=== PATIENT | male | born 1945 | race Caucasian/White ===

== ENCOUNTER → 2017-12-06 10:22 | Outpatient (CLI) | payer MEDICARE, SELFPAY ==
[2017-12-06 13:38] LABS: Absolute Lymphocyte Count 2.54 X10^3/ul (0.83-4.51); Absolute Neutrophil Count 2.6 X10^3/uL (2.0-7.7); Basophil# 0.02 X10^3/uL; Basophil% 0.3 % (0-1); Eosinophil# 0.07 X10^3/uL; Eosinophils% 1.2 % (0-5); Hematocrit 36.8 % (40-54); Hemoglobin 12.1 g/dl (13.0-16.5); Lymphocyte # 2.54 X10^3/ul (4.0); Lymphocyte % 43.4 % (19-41); Mean Corp Hgb Conc 32.9 g/gl (32-36); Mean Corpuscular Volume 91.3 fL (80-94); Mean Platelet Vol. 9.9 fl (6.2-12.0); Monocyte# 0.55 X10^3/uL; Monocyte% 9.4 % (0-10); Neutrophil # 2.64 X10^3/uL (2.7-7.7); Neutrophil % 45.2 % (47-70); Platelet Count 166 K/mm3 (150-450); RBC Distribution Width CV 14.4 % (11.6-14.6); RBC Distribution Width SD 47.4 fl (35.1-43.9); Red Blood Count 4.03 M/mm3 (4.6-6.2); White Blood Count 5.9 K/mm3 (4.4-11.0)
[2017-12-06 13:39] LABS: POSITIVE COUNT NO; POSITIVE DIFFERENTIAL NO; POSITIVE MORPHOLOGY NO
[2017-12-06 14:05] LABS: ALB/GLOB Ratio 1.1 RATIO (0.9-2.4); AST(SGOT) 17 U/L (15-37); Alanine Aminotransfer ALT/SGPT 33 U/L (16-61); Albumin, Serum 3.4 g/dL (3.2-5.0); Alkaline Phosphatase 53 U/L (45-117); Anion Gap 6 (5-15); BUN 26 mg/dL (7-18); BUN/Creat Ratio 22.8 RATIO (10-20); Calcium,Total 8.7 mg/dL (8.5-10.1); Chloride 102 mmol/L (98-107); Cholesterol 182 mg/dL (200); Creatinine, Serum 1.14 mg/dL (0.70-1.30); EST Glomerular Filtration Rate 67 mL/min (>60); Est Glom Filt Rate - Afr Amer 81 mL/min (>60); Glucose 247 mg/dL (74-106); High Density Lipoprotein 58 mg/dL; Potassium 4.7 mmol/L (3.5-5.1); Protein, Total 6.4 g/dL (6.4-8.2); Sodium Level 136 mmol/L (136-145); Thyroid Stim Hormone (TSH) 3.25 uIU/mL (0.358-3.74); Triglycerides 222 mg/dL; Very Low Density Lipoprotein 44 mg/dL (5-40)
== END ==
PROVIDERS: Family Provider Family Medicine Geriatric Medicine; PCP Family Medicine Geriatric Medicine; Visit Provider Family Medicine Geriatric Medicine
DX: I10 Essential (primary) hypertension (principal); F52.8 Other sexual dysfunction not due to a substance or known physiological condition; E11.9 Type 2 diabetes mellitus without complications; E78.4 Other hyperlipidemia
CPT/HCPCS: 36415; 80053; 80061; 84403; 84443; 85025

== ENCOUNTER → 2018-01-02 17:28 | Outpatient (CLI) | payer MEDICARE, SELFPAY | PROVIDERS: Family Provider Family Medicine Geriatric Medicine; PCP Family Medicine Geriatric Medicine; Visit Provider Family Medicine Geriatric Medicine | DX: R69 Illness, unspecified (principal) | CPT/HCPCS: 87633 ==

== ENCOUNTER → 2018-02-25 11:38 | Outpatient (CLI) | payer MEDICARE, SELFPAY ==
[2018-02-25 12:41] LABS: Absolute Lymphocyte Count 1.79 X10^3/ul (0.83-4.51); Basophil# 0.04 X10^3/uL; Basophil% 0.7 % (0-1); Eosinophil# 0.08 X10^3/uL; Eosinophils% 1.4 % (0-5); Hematocrit 34.2 % (40-54); Hemoglobin 11.5 g/dl (13.0-16.5); Lymphocyte # 1.79 X10^3/ul (4.0); Lymphocyte % 31.9 % (19-41); Mean Corp Hgb Conc 33.6 g/gl (32-36); Mean Corpuscular Hgb 31.1 pg (27.0-32.0); Mean Corpuscular Volume 92.4 fL (80-94); Mean Platelet Vol. 9.8 fl (6.2-12.0); Monocyte# 0.68 X10^3/uL; Monocyte% 12.1 % (0-10); Neutrophil # 3.01 X10^3/uL (2.7-7.7); Neutrophil % 53.5 % (47-70); POSITIVE COUNT NO; POSITIVE DIFFERENTIAL NO; POSITIVE MORPHOLOGY NO; Platelet Count 186 K/mm3 (150-450); RBC Distribution Width CV 14.1 % (11.6-14.6); RBC Distribution Width SD 46.1 fl (35.1-43.9); White Blood Count 5.6 K/mm3 (4.4-11.0)
[2018-02-25 12:50] LABS: Anion Gap 6 (5-15); BUN 23 mg/dL (7-18); BUN/Creat Ratio 20.2 RATIO (10-20); Calcium,Total 8.8 mg/dL (8.5-10.1); Chloride 104 mmol/L (98-107); Creatinine, Serum 1.14 mg/dL (0.70-1.30); EST Glomerular Filtration Rate 67 mL/min (>60); Est Glom Filt Rate - Afr Amer 81 mL/min (>60); Glucose 357 mg/dL (74-106); Potassium 4.8 mmol/L (3.5-5.1); Sodium Level 138 mmol/L (136-145)
== END ==
PROVIDERS: Family Provider Family Medicine Geriatric Medicine; PCP Family Medicine Geriatric Medicine; Visit Provider Family Medicine Geriatric Medicine
DX: M79.609 Pain in unspecified limb (principal)
CPT/HCPCS: 36415; 80048; 85025

== ENCOUNTER → 2018-03-01 08:48 | Outpatient (CLI) | payer MEDICARE, SELFPAY ==
[2018-03-01 09:48] LABS: Absolute Neutrophil Count 2.4 X10^3/uL (2.0-7.7); Basophil# 0.06 X10^3/uL; Basophil% 1.1 % (0-1); Eosinophil# 0.09 X10^3/uL; Eosinophils% 1.7 % (0-5); Hematocrit 33.4 % (40-54); Hemoglobin 11.4 g/dl (13.0-16.5); Lymphocyte % 41.6 % (19-41); Mean Corp Hgb Conc 34.1 g/gl (32-36); Mean Corpuscular Hgb 31.3 pg (27.0-32.0); Mean Corpuscular Volume 91.8 fL (80-94); Mean Platelet Vol. 9.4 fl (6.2-12.0); Monocyte# 0.55 X10^3/uL; Monocyte% 10.4 % (0-10); Neutrophil # 2.38 X10^3/uL (2.7-7.7); POSITIVE COUNT NO; POSITIVE DIFFERENTIAL NO; POSITIVE MORPHOLOGY NO; Platelet Count 196 K/mm3 (150-450); RBC Distribution Width CV 13.7 % (11.6-14.6); RBC Distribution Width SD 45.2 fl (35.1-43.9); Red Blood Count 3.64 M/mm3 (4.6-6.2); White Blood Count 5.3 K/mm3 (4.4-11.0)
[2018-03-01 10:21] LABS: AST(SGOT) 17 U/L (15-37); Alanine Aminotransfer ALT/SGPT 23 U/L (16-61); Albumin, Serum 3.4 g/dL (3.2-5.0); Alkaline Phosphatase 53 U/L (45-117); Anion Gap 7 (5-15); BUN 31 mg/dL (7-18); Calcium,Total 8.4 mg/dL (8.5-10.1); Chloride 104 mmol/L (98-107); Cholesterol 176 mg/dL (200); Creatinine, Serum 1.29 mg/dL (0.70-1.30); EST Glomerular Filtration Rate 58 mL/min (>60); Est Glom Filt Rate - Afr Amer 70 mL/min (>60); Globulin 3.3 g/dL (2.2-4.2); Glucose 196 mg/dL (74-106); High Density Lipoprotein 48 mg/dL; Potassium 4.2 mmol/L (3.5-5.1); Protein, Total 6.7 g/dL (6.4-8.2); Sodium Level 138 mmol/L (136-145); Thyroid Stim Hormone (TSH) 3.81 uIU/mL (0.358-3.74); Triglycerides 201 mg/dL; Very Low Density Lipoprotein 40 mg/dL (5-40)
[2018-03-01 10:52] LABS: Vitamin D,25 Hydroxy 16.4 ng/mL (29.95-100.01)
== END ==
PROVIDERS: Family Provider Family Medicine Geriatric Medicine; PCP Family Medicine Geriatric Medicine; Visit Provider Family Medicine Geriatric Medicine
DX: E55.9 Vitamin D deficiency, unspecified (principal); E11.9 Type 2 diabetes mellitus without complications; F52.8 Other sexual dysfunction not due to a substance or known physiological condition; E78.4 Other hyperlipidemia
CPT/HCPCS: 36415; 80053; 80061; 82306; 84403; 84443; 85025

== ENCOUNTER → 2018-06-07 09:55 | Outpatient (CLI) | payer MEDICARE, SELFPAY ==
[2018-06-07 11:42] LABS: Absolute Lymphocyte Count 1.72 X10^3/ul (0.83-4.51); Absolute Neutrophil Count 2.5 X10^3/uL (2.0-7.7); Basophil# 0.04 X10^3/uL; Basophil% 0.8 % (0-1); Eosinophil# 0.17 X10^3/uL; Eosinophils% 3.5 % (0-5); Hematocrit 32.9 % (40-54); Hemoglobin 10.6 g/dl (13.0-16.5); Lymphocyte # 1.72 X10^3/ul (4.0); Lymphocyte % 35.2 % (19-41); Mean Corp Hgb Conc 32.2 g/gl (32-36); Mean Corpuscular Hgb 28.6 pg (27.0-32.0); Mean Corpuscular Volume 88.7 fL (80-94); Monocyte% 10.2 % (0-10); Neutrophil # 2.45 X10^3/uL (2.7-7.7); Neutrophil % 50.3 % (47-70); Platelet Count 192 K/mm3 (150-450); RBC Distribution Width CV 13.8 % (11.6-14.6); Red Blood Count 3.71 M/mm3 (4.6-6.2); White Blood Count 4.9 K/mm3 (4.4-11.0)
[2018-06-07 11:44] LABS: POSITIVE COUNT NO; POSITIVE DIFFERENTIAL NO; POSITIVE MORPHOLOGY NO
[2018-06-07 12:00] LABS: Vitamin D,25 Hydroxy 26.9 ng/mL (29.95-100.01)
[2018-06-07 12:04] LABS: AST(SGOT) 19 U/L (15-37); Alanine Aminotransfer ALT/SGPT 24 U/L (16-61); Albumin, Serum 3.4 g/dL (3.2-5.0); Alkaline Phosphatase 55 U/L (45-117); Anion Gap 7 (5-15); BUN 28 mg/dL (7-18); BUN/Creat Ratio 19.9 RATIO (10-20); Calcium,Total 8.5 mg/dL (8.5-10.1); Chloride 107 mmol/L (98-107); Creatinine, Serum 1.41 mg/dL (0.70-1.30); EST Glomerular Filtration Rate 52 mL/min (>60); Est Glom Filt Rate - Afr Amer 63 mL/min (>60); Globulin 3.3 g/dL (2.2-4.2); Glucose 140 mg/dL (74-106); Protein, Total 6.7 g/dL (6.4-8.2); Sodium Level 142 mmol/L (136-145); Thyroid Stim Hormone (TSH) 2.41 uIU/mL (0.358-3.74)
[2018-06-07 14:42] LABS: M R Staph aureus DNA By PCR Negative (Negative); Probe Check PASS; Specimen Processing Control PASS; Staph aureus DNA By PCR NEGATIVE (Negative)
== END ==
PROVIDERS: Family Provider Family Medicine Geriatric Medicine; PCP Family Medicine Geriatric Medicine; Visit Provider Family Medicine Geriatric Medicine
DX: E11.9 Type 2 diabetes mellitus without complications (principal); I10 Essential (primary) hypertension; E55.9 Vitamin D deficiency, unspecified; F52.8 Other sexual dysfunction not due to a substance or known physiological condition
CPT/HCPCS: 36415; 80053; 82306; 84403; 84443; 85025; 87070; 87205; 87640

== ENCOUNTER → 2018-06-14 11:29 | Outpatient (CLI) | payer MEDICARE, SELFPAY ==
[2018-06-14 13:10] LABS: Anion Gap 6 (5-15); BUN 27 mg/dL (7-18); BUN/Creat Ratio 18.4 RATIO (10-20); Calcium,Total 8.8 mg/dL (8.5-10.1); Chloride 102 mmol/L (98-107); Creatinine, Serum 1.47 mg/dL (0.70-1.30); EST Glomerular Filtration Rate 50 mL/min (>60); Est Glom Filt Rate - Afr Amer 60 mL/min (>60); Glucose 276 mg/dL (74-106); Potassium 4.5 mmol/L (3.5-5.1); Sodium Level 138 mmol/L (136-145)
== END ==
PROVIDERS: Family Provider Family Medicine Geriatric Medicine; PCP Family Medicine Geriatric Medicine; Visit Provider Family Medicine Geriatric Medicine
DX: N39.0 Urinary tract infection, site not specified (principal); N18.3 Chronic kidney disease, stage 3 (moderate)
CPT/HCPCS: 36415; 80048; 87086

== ENCOUNTER → 2018-06-19 10:10 | Outpatient (CLI) | payer MEDICARE, SELFPAY | PROVIDERS: Family Provider Family Medicine Geriatric Medicine; PCP Family Medicine Geriatric Medicine; Visit Provider Urology | DX: R31.9 Hematuria, unspecified (principal); L97.912 Non-pressure chronic ulcer of unspecified part of right lower leg with fat layer exposed; R60.0 Localized edema; I25.10 Atherosclerotic heart disease of native coronary artery without angina pectoris; E11.9 Type 2 diabetes mellitus without complications; I10 Essential (primary) hypertension | CPT/HCPCS: 11042; 76770; 99203; G0463 ==

== ENCOUNTER 2018-06-19 11:31 | Outpatient (RCR) | payer MEDICARE, SELFPAY ==
[2018-06-19 11:55] VITALS: BP 129/63; PULSE 61; RESP 16; TEMP 36.9; BMI 25.7
--- NOTE | 2018-06-19 13:18 | PCM.WC.HP ---
(1) Bilateral lower extremity edema Status: Acute Current Visit: Yes Code(s): R60.0 - Localized edema (2) Ulcer of right lower extremity Status: Acute Current Visit: Yes Code(s): L97.919 - Non-pressure chronic ulcer of unspecified part of right lower leg with unspecified severity (3) CAD (coronary artery disease) Status: Chronic Current Visit: No Code(s): I25.10 - Atherosclerotic heart disease of [place] coronary artery without angina pectoris (4) Diabetes Status: Chronic Current Visit: No Code(s): E11.9 - Type 2 diabetes mellitus without complications History of Present Illness Date of Service: 06/19/18 Chief Complaint: Right Lower Extremity Ulcer. History of Wound: Mr. Clayton is a 72-year-old with past medical history as stated above who presented to the wound center due to right lower extremity ulcer. He reports worsening bilateral lower extremity swelling which was noted about a month ago subsequently about a week ago noted right lower extremity ulcer. Denies any history of trauma. He has tried some home care without any significant relief. Bilateral lower extremity swelling also appears to have persisted despite diuretic management. He feels well otherwise and denies chills, fever but does note shortness of breath he has an extensive cardiac history and status post stenting. Past Medical History Past Medical History: Chronic Problems Diabetes (Chronic) Hypertension (Chronic) CAD (coronary artery disease) (Chronic) Allergies/Adverse Reactions: Allergies ciprofloxacin HCl [From Cipro] Adverse Reaction (Verified 11/24/16 21:59) Pain in joints Home Medications: Ambulatory Orders Medication Instructions Recorded Levothyroxine [Synthroid] 25 mcg PO DAILY 09/09/13 Metoprolol Tartrate [Lopressor 25 mg PO BID 09/09/13 (beta gary)] Rosuvastatin Calcium [Crestor] 20 mg PO QHS 09/09/13 Tamsulosin HCl [Flomax] 0.4 mg PO DAILY 09/09/13 ALPRAZolam [Xanax] 0.25 mg PO QHS PRN 04/12/16 Ondansetron [Zofran Odt] 4 mg PO Q8H PRN PRN #10 tablet 04/12/16 Aspirin [Aspirin, Baby] 81 mg PO DAILY@0800 11/24/16 Clopidogrel Bisulfate [Plavix] 75 mg PO DAILY 11/24/16 Finasteride 1 mg PO DAILY 11/24/16 Insulin Degludec [Tresiba 100 unit SQ DAILY 11/24/16 Flextouch U-100] Pantoprazole Sodium [Protonix] 20 mg PO DAILY 11/24/16 Sennosides/Docusate Sodium 2 each PO QHS 11/24/16 [Docusate Sodium-Senna Tablet] - Family History Paternal Diabetes Maternal Heart Disease Smoking Status: Former smoker Review of Systems Constitutional: Denies: Anorexia, Chills, Fever, Malaise, Weakness HEENT: Denies: Difficulty Swallowing Cardiovascular: Denies: Chest Pain, Syncope Respiratory: Denies: Cough, Shortness of Breath, Wheezing Gastrointestinal: Denies: Abdominal Pain, Hematemesis, Vomiting Genitourinary: Denies: Hematuria - Physical Exam Vital Signs Temp Pulse Resp BP 98.4 F 61 16 129/63 H 06/19/18 11:55 06/19/18 11:55 06/19/18 11:55 06/19/18 11:55 General: Alert, Oriented x3, Cooperative, No apparent distress HEENT: Atraumatic Oral: Moist Mucosa Neck: Supple Lungs: Normal air movement Cardiovascular: Regular rate, Regular Rhythm Abdomen: Soft, Non Tender Extremities: No cyanosis, Edema Skin: Ulcer/ Wound Wound Measurements and Assessment WC - Nurse 1 - General Ulcer Measurement Start: 06/19/18 11:55 Freq: Status: Active Protocol: Activity Type Activity Date Activity User E-Sign Co-Sign Detail Recorded Client Recorded Date Recorded By Document 06/19/18 11:55 [id number] 06/19/18 12:16 06/19/18 11:55 Wound Center Nurse 1 [Ulcer Assessment] #1 RLE leg -Combined with other wound No -Current Size (cm) - Length 0.4 -Current Size (cm) - Width 0.4 -Current Size (cm) - Depth 0.1 -Total Square Cm 0.16 -Date of Last Picture (Recall this 06/19/18 field) -Photo Taken Yes -Epithelialization None Present -Tunneling No -Undermining/Tunneling No -Circular Undermining No -Exudate Amt Small (1-33%) -Exudate Type Serosanguineous -Wound Margin Distinct, Outline Attached -Granulation Amt Medium (34-66%) -Granulation Quality Red -Slough/Fibrin Yes -Necrosis Amt None Present (0 %) -Necrotic Tissue Type Adherent Slough -Structure Exposed None/Limited to Skin Breakdown -Texture (Bertha-wound Skin Appearance) No Abnormality Assessed -Moisture (Bertha-wound Skin Appearance No Abnormality ) Assessed -Color (Bertha-wound Skin Appearance) Assessed Hemosiderin Staining -Temperature (Bertha-wound Skin No Abnormality Appearance) (Pt Warm) -Tenderness on Palpation (Bertha-wound No Skin Appearance) -Ulcer Cleansing Rinsed/ Irrigated with Saline -Foul Odor after Cleansing No -Anesthetic Used 4% Lidocaine Solution [Edema Assessment] -Lower Limb Edema Present Yes -Right Calf (cm) 41 -Right Ankle (cm) 22 -Left Calf (cm) 40.5 -Left Ankle (cm) 20.0 WC - Nurse 2 - General Ulcer CM Notes Start: 06/19/18 11:55 Freq: Status: Active Protocol: Activity Type Activity Date Activity User E-Sign Co-Sign Detail Recorded Client Recorded Date Recorded By Document 06/19/18 12:24 MW [id number] 06/19/18 12:30 MW 06/19/18 12:24 Wound Center Nurse 2 [Procedure/Treatment] #1 RLE leg -Time 12:25 -Correct Patient Yes -Correct Side, Site, Position Yes -Correct Procedure Yes -Procedure Performed Yes -Type of Procedure Debridement -Clinical Debridement Subcutaneous -Post Debridement Size (cm) - Length 0.6 -Post Debridement Size (cm) - Width 0.6 -Post Debridement Size (cm) - Depth 0.1 -Total Square Cm 0.36 -Wound/Ulcer Outcome Not Healed -Ulcer Cleansing Rinsed/ Irrigated with Saline -Foul Odor after Cleansing No -Bioengineered Tissue No -Bleeding Controlled with Pressure -Treatment Response Procedure Tolerated Well [See Physician Procedure note for Specifics] Pain Scale: 0-10 Numeric [Pain] -Is Patient Pain Free? Yes Musculoskeletal: No Muscle Wasting Neurological: Cranial nerves II-XII grossly intact Psych/Mental Status: Normal Affect Debridement Note Post-Debridement Measurements/Treatment WC - Nurse 2 - General Ulcer CM Notes Start: 06/19/18 11:55 Freq: Status: Active Protocol: Activity Type Activity Date Activity User E-Sign Co-Sign Detail Recorded Client Recorded Date Recorded By Document 06/19/18 12:24 MW [id number] 08/29/18 12:30 MW 06/19/18 12:24 Wound Center Nurse 2 #1 RLE leg -Time 12:25 -Correct Patient Yes -Correct Side, Site, Position Yes -Correct Procedure Yes -Procedure Performed Yes -Type of Procedure Debridement -Clinical Debridement Subcutaneous -Post Debridement Size (cm) - Length 0.6 -Post Debridement Size (cm) - Width 0.6 -Post Debridement Size (cm) - Depth 0.1 -Total Square Cm 0.36 -Wound/Ulcer Outcome Not Healed -Ulcer Cleansing Rinsed/ Irrigated with Saline -Foul Odor after Cleansing No -Bioengineered Tissue No -Bleeding Controlled with Pressure -Treatment Response Procedure Tolerated Well Pain Scale: 0-10 Numeric Is Patient Pain Free? Yes Wound debrided: Right lower extremity ulcer Wound Grade/Stage: Saxena I Type of Debridement: Excisional debridement Anesthesia Used: 4% Lidocaine Solution Depth: Down to and including healthy tissue, in the subcutaneous layer Percentage of wound debrided: 100 Instrument Used: 3mm curette Tissue Removed: Slough and devitalized tissue Severity: Fat Layer Exposed Amount of bleeding with debridement: Mild Bleeding Controlled with: Pressure Patient tolerated procedure well Assessment/Plan Active Problems Bilateral lower extremity edema (Acute) Ulcer of right lower extremity (Acute) Assessment: Right lower extremity ulcer with fat layer exposed. Bilateral lower extremity swelling. Diabetes Mellitus. Possible PAD in a patient with CAD. Plan: Debridement done as documented above. Procedure was well-tolerated. Aquacel extra to open ulcers with Xeroform over area of erythema. Change daily. Single layer Tubigrip for now for edema management. Patient advised to elevate lower extremities when seated and in bed. Also advised him compliance with diuretic management. Strongly advised to follow-up with his account analyst due to his extensive cardiac history and he also reports some shortness of breath. Vascular and venous studies ordered. Will get other labs from the [facility]. Increase protein intake recommended. Optimal blood glucose control. Advised to follow-up with his PCP for continued management of his sugars. Follow-up in 1 week. He was advised to call with any questions or concerns. This note was generated with [employer] software. It may contain incorrect words, spelling, and punctuation that were not noted in checking the note before signing.
--- NOTE | 2018-06-19 13:21 | HP.PCM_ITS ---
(1) Bilateral lower extremity edema Status: Acute Current Visit: Yes Code(s): R60.0 - Localized edema (2) Ulcer of right lower extremity Status: Acute Current Visit: Yes Code(s): L97.919 - Non-pressure chronic ulcer of unspecified part of right lower leg with unspecified severity (3) CAD (coronary artery disease) Status: Chronic Current Visit: No Code(s): I25.10 - Atherosclerotic heart disease of [place] coronary artery without angina pectoris (4) Diabetes Status: Chronic Current Visit: No Code(s): E11.9 - Type 2 diabetes mellitus without complications History of Present Illness Date of Service: 06/19/18 Chief Complaint: Right Lower Extremity Ulcer. History of Wound: Mr. Clayton is a 72-year-old with past medical history as stated above who presented to the wound center due to right lower extremity ulcer. He reports worsening bilateral lower extremity swelling which was noted about a month ago subsequently about a week ago noted right lower extremity ulcer. Denies any history of trauma. He has tried some home care without any significant relief. Bilateral lower extremity swelling also appears to have persisted despite diuretic management. He feels well otherwise and denies chills, fever but does note shortness of breath he has an extensive cardiac history and status post stenting. Past Medical History Past Medical History: Chronic Problems Diabetes (Chronic) Hypertension (Chronic) CAD (coronary artery disease) (Chronic) Allergies/Adverse Reactions: Allergies ciprofloxacin HCl [From Cipro] Adverse Reaction (Verified 11/24/16 21:59) Pain in joints Home Medications: Ambulatory Orders Medication Instructions Recorded Levothyroxine [Synthroid] 25 mcg PO DAILY 09/09/13 Metoprolol Tartrate [Lopressor 25 mg PO BID 09/09/13 (beta gary)] Rosuvastatin Calcium [Crestor] 20 mg PO QHS 09/09/13 Tamsulosin HCl [Flomax] 0.4 mg PO DAILY 09/09/13 ALPRAZolam [Xanax] 0.25 mg PO QHS PRN 04/12/16 Ondansetron [Zofran Odt] 4 mg PO Q8H PRN PRN #10 tablet 04/12/16 Aspirin [Aspirin, Baby] 81 mg PO DAILY@0800 11/24/16 Clopidogrel Bisulfate [Plavix] 75 mg PO DAILY 11/24/16 Finasteride 1 mg PO DAILY 11/24/16 Insulin Degludec [Tresiba 100 unit SQ DAILY 11/24/16 Flextouch U-100] Pantoprazole Sodium [Protonix] 20 mg PO DAILY 11/24/16 Sennosides/Docusate Sodium 2 each PO QHS 11/24/16 [Docusate Sodium-Senna Tablet] - Family History Paternal Diabetes Maternal Heart Disease Smoking Status: Former smoker Review of Systems Constitutional: Denies: Anorexia, Chills, Fever, Malaise, Weakness HEENT: Denies: Difficulty Swallowing Cardiovascular: Denies: Chest Pain, Syncope Respiratory: Denies: Cough, Shortness of Breath, Wheezing Gastrointestinal: Denies: Abdominal Pain, Hematemesis, Vomiting Genitourinary: Denies: Hematuria - Physical Exam Vital Signs Temp Pulse Resp BP 98.4 F 61 16 129/63 H 06/19/18 11:55 06/19/18 11:55 06/19/18 11:55 06/19/18 11:55 General: Alert, Oriented x3, Cooperative, No apparent distress HEENT: Atraumatic Oral: Moist Mucosa Neck: Supple Lungs: Normal air movement Cardiovascular: Regular rate, Regular Rhythm Abdomen: Soft, Non Tender Extremities: No cyanosis, Edema Skin: Ulcer/ Wound Wound Measurements and Assessment WC - Nurse 1 - General Ulcer Measurement Start: 06/19/18 11:55 Freq: Status: Active Protocol: Activity Type Activity Date Activity User E-Sign Co-Sign Detail Recorded Client Recorded Date Recorded By Document 06/19/18 11:55 [id number] 06/19/18 12:16 06/19/18 11:55 Wound Center Nurse 1 [Ulcer Assessment] #1 RLE leg -Combined with other wound No -Current Size (cm) - Length 0.4 -Current Size (cm) - Width 0.4 -Current Size (cm) - Depth 0.1 -Total Square Cm 0.16 -Date of Last Picture (Recall this 06/19/18 field) -Photo Taken Yes -Epithelialization None Present -Tunneling No -Undermining/Tunneling No -Circular Undermining No -Exudate Amt Small (1-33%) -Exudate Type Serosanguineous -Wound Margin Distinct, Outline Attached -Granulation Amt Medium (34-66%) -Granulation Quality Red -Slough/Fibrin Yes -Necrosis Amt None Present (0 %) -Necrotic Tissue Type Adherent Slough -Structure Exposed None/Limited to Skin Breakdown -Texture (Bertha-wound Skin Appearance) No Abnormality Assessed -Moisture (Bertha-wound Skin Appearance No Abnormality ) Assessed -Color (Bertha-wound Skin Appearance) Assessed Hemosiderin Staining -Temperature (Bertha-wound Skin No Abnormality Appearance) (Pt Warm) -Tenderness on Palpation (Bertha-wound No Skin Appearance) -Ulcer Cleansing Rinsed/ Irrigated with Saline -Foul Odor after Cleansing No -Anesthetic Used 4% Lidocaine Solution [Edema Assessment] -Lower Limb Edema Present Yes -Right Calf (cm) 41 -Right Ankle (cm) 22 -Left Calf (cm) 40.5 -Left Ankle (cm) 20.0 WC - Nurse 2 - General Ulcer CM Notes Start: 06/19/18 11:55 Freq: Status: Active Protocol: Activity Type Activity Date Activity User E-Sign Co-Sign Detail Recorded Client Recorded Date Recorded By Document 06/19/18 12:24 MW [id number] 06/19/18 12:30 MW 06/19/18 12:24 Wound Center Nurse 2 [Procedure/Treatment] #1 RLE leg -Time 12:25 -Correct Patient Yes -Correct Side, Site, Position Yes -Correct Procedure Yes -Procedure Performed Yes -Type of Procedure Debridement -Clinical Debridement Subcutaneous -Post Debridement Size (cm) - Length 0.6 -Post Debridement Size (cm) - Width 0.6 -Post Debridement Size (cm) - Depth 0.1 -Total Square Cm 0.36 -Wound/Ulcer Outcome Not Healed -Ulcer Cleansing Rinsed/ Irrigated with Saline -Foul Odor after Cleansing No -Bioengineered Tissue No -Bleeding Controlled with Pressure -Treatment Response Procedure Tolerated Well [See Physician Procedure note for Specifics] Pain Scale: 0-10 Numeric [Pain] -Is Patient Pain Free? Yes Musculoskeletal: No Muscle Wasting Neurological: Cranial nerves II-XII grossly intact Psych/Mental Status: Normal Affect Debridement Note Post-Debridement Measurements/Treatment WC - Nurse 2 - General Ulcer CM Notes Start: 06/19/18 11:55 Freq: Status: Active Protocol: Activity Type Activity Date Activity User E-Sign Co-Sign Detail Recorded Client Recorded Date Recorded By Document 06/19/18 12:24 MW [id number] 08/29/18 12:30 MW 06/19/18 12:24 Wound Center Nurse 2 #1 RLE leg -Time 12:25 -Correct Patient Yes -Correct Side, Site, Position Yes -Correct Procedure Yes -Procedure Performed Yes -Type of Procedure Debridement -Clinical Debridement Subcutaneous -Post Debridement Size (cm) - Length 0.6 -Post Debridement Size (cm) - Width 0.6 -Post Debridement Size (cm) - Depth 0.1 -Total Square Cm 0.36 -Wound/Ulcer Outcome Not Healed -Ulcer Cleansing Rinsed/ Irrigated with Saline -Foul Odor after Cleansing No -Bioengineered Tissue No -Bleeding Controlled with Pressure -Treatment Response Procedure Tolerated Well Pain Scale: 0-10 Numeric Is Patient Pain Free? Yes Wound debrided: Right lower extremity ulcer Wound Grade/Stage: Saxena I Type of Debridement: Excisional debridement Anesthesia Used: 4% Lidocaine Solution Depth: Down to and including healthy tissue, in the subcutaneous layer Percentage of wound debrided: 100 Instrument Used: 3mm curette Tissue Removed: Slough and devitalized tissue Severity: Fat Layer Exposed Amount of bleeding with debridement: Mild Bleeding Controlled with: Pressure Patient tolerated procedure well Assessment/Plan Active Problems Bilateral lower extremity edema (Acute) Ulcer of right lower extremity (Acute) Assessment: Right lower extremity ulcer with fat layer exposed. Bilateral lower extremity swelling. Diabetes Mellitus. Possible PAD in a patient with CAD. Plan: Debridement done as documented above. Procedure was well-tolerated. Aquacel extra to open ulcers with Xeroform over area of erythema. Change daily. Single layer Tubigrip for now for edema management. Patient advised to elevate lower extremities when seated and in bed. Also advised him compliance with diuretic management. Strongly advised to follow-up with his urologist due to his extensive cardiac history and he also reports some shortness of breath. Vascular and venous studies ordered. Will get other labs from the [facility]. Increase protein intake recommended. Optimal blood glucose control. Advised to follow-up with his PCP for continued management of his sugars. Follow-up in 1 week. He was advised to call with any questions or concerns. This note was generated with [employer] software. It may contain incorrect words, spelling, and punctuation that were not noted in checking the note before signing.
== END 2018-06-21 23:59 ==
LOC: WC 11:31
PROVIDERS: Family Provider Family Medicine Geriatric Medicine; PCP Family Medicine Geriatric Medicine; Visit Provider Internal Medicine
DX: E11.622 Type 2 diabetes mellitus with other skin ulcer (principal); I25.10 Atherosclerotic heart disease of native coronary artery without angina pectoris; R60.0 Localized edema; L97.912 Non-pressure chronic ulcer of unspecified part of right lower leg with fat layer exposed
CPT/HCPCS: 11042; 99203; G0463

== ENCOUNTER 2018-07-10 08:00 | Outpatient (RCR) | payer MEDICARE, SELFPAY ==
[2018-06-22 01:57] VITALS: BP 129/63; PULSE 61; RESP 16; TEMP 36.9
[2018-06-26 12:08] VITALS: BP 124/56; PULSE 56; RESP 16; TEMP 37
--- NOTE | 2018-06-26 12:24 | PCM.WC.PN ---
(1) Bilateral lower extremity edema Status: Acute Current Visit: Yes Code(s): R60.0 - Localized edema (2) Ulcer of right lower extremity Status: Acute Current Visit: Yes Code(s): L97.919 - Non-pressure chronic ulcer of unspecified part of right lower leg with unspecified severity (3) Diabetes Status: Chronic Current Visit: No Code(s): E11.9 - Type 2 diabetes mellitus without complications Type of Wound Date of Service: 06/26/18 Chief Complaint: Right Lower Extremity Ulcer. History of Wound: Mr. Clayton is a 72-year-old with past medical history as stated above who presented to the wound center due to right lower extremity ulcer. He reports worsening bilateral lower extremity swelling which was noted about a month ago subsequently about a week ago noted right lower extremity ulcer. Denies any history of trauma. He has tried some home care without any significant relief. Bilateral lower extremity swelling also appears to have persisted despite diuretic management. He feels well otherwise and denies chills, fever but does note shortness of breath he has an extensive cardiac history and status post stenting. Progress of Wound: Improving. - Physical Exam Vital Signs Temp Pulse Resp BP 98.6 F 56 L 16 124/56 H 06/26/18 12:08 06/26/18 12:08 06/26/18 12:08 06/26/18 12:08 General: Alert, Oriented x3, Cooperative, No apparent distress HEENT: Atraumatic Oral: Moist Mucosa Neck: Supple Lungs: Normal air movement Cardiovascular: Regular rate Abdomen: Non Tender Extremities: No cyanosis, Edema Wound Measurements and Assessment WC - Nurse 1 - General Ulcer Measurement Start: 06/26/18 12:07 Freq: Status: Active Protocol: Activity Type Activity Date Activity User E-Sign Co-Sign Detail Recorded Client Recorded Date Recorded By Document 06/26/18 12:08 [id number] 06/26/18 12:09 06/26/18 12:08 Wound Center Nurse 1 [Ulcer Assessment] #1 RLE leg -Combined with other wound No -Current Size (cm) - Length 0.1 -Current Size (cm) - Width 0.1 -Current Size (cm) - Depth 0.1 -Total Square Cm 0.01 -Photo Taken No -Epithelialization Large 67-100% -Tunneling No -Undermining/Tunneling No -Circular Undermining No -Texture (Bertha-wound Skin Appearance) Localized Edema -Color (Bertha-wound Skin Appearance) Erythema -Temperature (Bertha-wound Skin No Abnormality Appearance) (Pt Warm) -Ulcer Cleansing Rinsed/ Irrigated with Saline -Anesthetic Used 4% Lidocaine Solution [Edema Assessment] -Lower Limb Edema Present Yes -Right Calf (cm) 36 -Right Ankle (cm) 22 WC - Nurse 2 - General Ulcer CM Notes Start: 06/26/18 12:07 Freq: Status: Active Protocol: Activity Type Activity Date Activity User E-Sign Co-Sign Detail Recorded Client Recorded Date Recorded By Document 06/26/18 12:21 MW [id number] 06/26/18 12:23 MW 06/26/18 12:21 Wound Center Nurse 2 [Procedure/Treatment] #1 RLE leg -Time 12:21 -Correct Patient Yes -Correct Side, Site, Position Yes -Correct Procedure No -Procedure Performed No -Post Debridement Size (cm) - Length 0 -Post Debridement Size (cm) - Width 0 -Post Debridement Size (cm) - Depth 0 -Total Square Cm 0 -Wound/Ulcer Outcome Healed- Epithelialized -Ulcer Cleansing Not Cleansed -Foul Odor after Cleansing No -Bleeding Controlled with NA -Treatment Response Procedure Tolerated Well [See Physician Procedure note for Specifics] Pain Scale: 0-10 Numeric [Pain] -Is Patient Pain Free? Yes Musculoskeletal: No Muscle Wasting Neurological: Cranial nerves II-XII grossly intact Psych/Mental Status: Normal Affect Debridement Note Post-Debridement Measurements/Treatment WC - Nurse 2 - General Ulcer CM Notes Start: 06/26/18 12:07 Freq: Status: Active Protocol: Activity Type Activity Date Activity User E-Sign Co-Sign Detail Recorded Client Recorded Date Recorded By Document 06/26/18 12:21 MW [id number] 06/26/18 12:23 MW 06/26/18 12:21 Wound Center Nurse 2 #1 RLE leg -Time 12:21 -Correct Patient Yes -Correct Side, Site, Position Yes -Correct Procedure No -Procedure Performed No -Post Debridement Size (cm) - Length 0 -Post Debridement Size (cm) - Width 0 -Post Debridement Size (cm) - Depth 0 -Total Square Cm 0 -Wound/Ulcer Outcome Healed- Epithelialized -Ulcer Cleansing Not Cleansed -Foul Odor after Cleansing No -Bleeding Controlled with NA -Treatment Response Procedure Tolerated Well Pain Scale: 0-10 Numeric Is Patient Pain Free? Yes No debridement was completed today Assessment/Plan Active Problems Bilateral lower extremity edema (Acute) Ulcer of right lower extremity (Acute) Assessment: Right lower extremity ulcer with fat layer exposed. Bilateral lower extremity swelling. Diabetes Mellitus. Possible PAD in a patient with CAD. Plan: Ulcer has healed. Still lower extremity erythema. No debridement done today. Continue Xeroform , change daily. 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 Elevate lower extremity when seated. Strongly advised to follow-up with his ramp lead due to his extensive cardiac history. Continue Lasix. Vascular and venous studies ordered. Yet to be done. Increased protein intake recommended. Optimal blood glucose control. Advised to follow-up with his PCP for continued management of his blood sugars. Follow-up in 1 week. He was advised to call with any questions or concerns. This note was generated with [facility] dictation software. It may contain incorrect words, spelling, and punctuation that were not noted in checking the note before signing.
--- NOTE | 2018-06-26 12:28 | PN.PCM_ITS ---
(1) Bilateral lower extremity edema Status: Acute Current Visit: Yes Code(s): R60.0 - Localized edema (2) Ulcer of right lower extremity Status: Acute Current Visit: Yes Code(s): L97.919 - Non-pressure chronic ulcer of unspecified part of right lower leg with unspecified severity (3) Diabetes Status: Chronic Current Visit: No Code(s): E11.9 - Type 2 diabetes mellitus without complications Type of Wound Date of Service: 06/26/18 Chief Complaint: Right Lower Extremity Ulcer. History of Wound: Mr. Clayton is a 72-year-old with past medical history as stated above who presented to the wound center due to right lower extremity ulcer. He reports worsening bilateral lower extremity swelling which was noted about a month ago subsequently about a week ago noted right lower extremity ulcer. Denies any history of trauma. He has tried some home care without any significant relief. Bilateral lower extremity swelling also appears to have persisted despite diuretic management. He feels well otherwise and denies chills, fever but does note shortness of breath he has an extensive cardiac history and status post stenting. Progress of Wound: Improving. - Physical Exam Vital Signs Temp Pulse Resp BP 98.6 F 56 L 16 124/56 H 06/26/18 12:08 06/26/18 12:08 06/26/18 12:08 06/26/18 12:08 General: Alert, Oriented x3, Cooperative, No apparent distress HEENT: Atraumatic Oral: Moist Mucosa Neck: Supple Lungs: Normal air movement Cardiovascular: Regular rate Abdomen: Non Tender Extremities: No cyanosis, Edema Wound Measurements and Assessment WC - Nurse 1 - General Ulcer Measurement Start: 06/26/18 12:07 Freq: Status: Active Protocol: Activity Type Activity Date Activity User E-Sign Co-Sign Detail Recorded Client Recorded Date Recorded By Document 06/26/18 12:08 [id number] 06/26/18 12:09 06/26/18 12:08 Wound Center Nurse 1 [Ulcer Assessment] #1 RLE leg -Combined with other wound No -Current Size (cm) - Length 0.1 -Current Size (cm) - Width 0.1 -Current Size (cm) - Depth 0.1 -Total Square Cm 0.01 -Photo Taken No -Epithelialization Large 67-100% -Tunneling No -Undermining/Tunneling No -Circular Undermining No -Texture (Bertha-wound Skin Appearance) Localized Edema -Color (Bertha-wound Skin Appearance) Erythema -Temperature (Bertha-wound Skin No Abnormality Appearance) (Pt Warm) -Ulcer Cleansing Rinsed/ Irrigated with Saline -Anesthetic Used 4% Lidocaine Solution [Edema Assessment] -Lower Limb Edema Present Yes -Right Calf (cm) 36 -Right Ankle (cm) 22 WC - Nurse 2 - General Ulcer CM Notes Start: 06/26/18 12:07 Freq: Status: Active Protocol: Activity Type Activity Date Activity User E-Sign Co-Sign Detail Recorded Client Recorded Date Recorded By Document 06/26/18 12:21 MW [id number] 06/26/18 12:23 MW 06/26/18 12:21 Wound Center Nurse 2 [Procedure/Treatment] #1 RLE leg -Time 12:21 -Correct Patient Yes -Correct Side, Site, Position Yes -Correct Procedure No -Procedure Performed No -Post Debridement Size (cm) - Length 0 -Post Debridement Size (cm) - Width 0 -Post Debridement Size (cm) - Depth 0 -Total Square Cm 0 -Wound/Ulcer Outcome Healed- Epithelialized -Ulcer Cleansing Not Cleansed -Foul Odor after Cleansing No -Bleeding Controlled with NA -Treatment Response Procedure Tolerated Well [See Physician Procedure note for Specifics] Pain Scale: 0-10 Numeric [Pain] -Is Patient Pain Free? Yes Musculoskeletal: No Muscle Wasting Neurological: Cranial nerves II-XII grossly intact Psych/Mental Status: Normal Affect Debridement Note Post-Debridement Measurements/Treatment WC - Nurse 2 - General Ulcer CM Notes Start: 06/26/18 12:07 Freq: Status: Active Protocol: Activity Type Activity Date Activity User E-Sign Co-Sign Detail Recorded Client Recorded Date Recorded By Document 06/26/18 12:21 MW [id number] 06/26/18 12:23 MW 06/26/18 12:21 Wound Center Nurse 2 #1 RLE leg -Time 12:21 -Correct Patient Yes -Correct Side, Site, Position Yes -Correct Procedure No -Procedure Performed No -Post Debridement Size (cm) - Length 0 -Post Debridement Size (cm) - Width 0 -Post Debridement Size (cm) - Depth 0 -Total Square Cm 0 -Wound/Ulcer Outcome Healed- Epithelialized -Ulcer Cleansing Not Cleansed -Foul Odor after Cleansing No -Bleeding Controlled with NA -Treatment Response Procedure Tolerated Well Pain Scale: 0-10 Numeric Is Patient Pain Free? Yes No debridement was completed today Assessment/Plan Active Problems Bilateral lower extremity edema (Acute) Ulcer of right lower extremity (Acute) Assessment: Right lower extremity ulcer with fat layer exposed. Bilateral lower extremity swelling. Diabetes Mellitus. Possible PAD in a patient with CAD. Plan: Ulcer has healed. Still lower extremity erythema. No debridement done today. Continue Xeroform , change daily. Double layer [employer] electronic sensing equipment assembler for edema management. Elevate lower extremity when seated. Strongly advised to follow-up with his nursing staff development coordinator due to his extensive cardiac history. Continue Lasix. Vascular and venous studies ordered. Yet to be done. Increased protein intake recommended. Optimal blood glucose control. Advised to follow-up with his PCP for continued management of his blood sugars. Follow-up in 1 week. He was advised to call with any questions or concerns. This note was generated with [email or web address] dictation software. It may contain incorrect words, spelling, and punctuation that were not noted in checking the note before signing.
[2018-07-03 12:17] VITALS: BP 123/66; PULSE 55; RESP 18; TEMP 36.6
--- NOTE | 2018-07-03 12:33 | PCM.WC.PN ---
(1) Bilateral lower extremity edema Status: Acute Current Visit: Yes Code(s): R60.0 - Localized edema (2) Ulcer of right lower extremity Status: Acute Current Visit: Yes Code(s): L97.919 - Non-pressure chronic ulcer of unspecified part of right lower leg with unspecified severity (3) Diabetes Status: Chronic Current Visit: No Code(s): E11.9 - Type 2 diabetes mellitus without complications Type of Wound Date of Service: 07/03/18 Chief Complaint: Right Lower Extremity Ulcer. History of Wound: Mr. Clayton is a 72-year-old with past medical history as stated above who presented to the wound center due to right lower extremity ulcer. He reports worsening bilateral lower extremity swelling which was noted about a month ago subsequently about a week ago noted right lower extremity ulcer. Denies any history of trauma. He has tried some home care without any significant relief. Bilateral lower extremity swelling also appears to have persisted despite diuretic management. He feels well otherwise and denies chills, fever but does note shortness of breath he has an extensive cardiac history and status post stenting. Progress of Wound: Healed. - Physical Exam Vital Signs Temp Pulse Resp BP 97.8 F 55 L 18 123/66 H 07/03/18 12:17 07/03/18 12:17 07/03/18 12:17 07/03/18 12:17 General: Alert, Oriented x3, Cooperative, No apparent distress HEENT: Atraumatic Oral: Moist Mucosa Neck: Supple Lungs: Normal air movement Abdomen: Soft, Non Tender Wound Measurements and Assessment WC - Nurse 1 - General Ulcer Measurement Start: 06/26/18 12:07 Freq: Status: Active Protocol: Activity Type Activity Date Activity User E-Sign Co-Sign Detail Recorded Client Recorded Date Recorded By Document 07/03/18 12:17 DL [id number] 07/03/18 12:22 DL 07/03/18 12:17 Wound Center Nurse 1 [Ulcer Assessment] #1 RLE leg -Current Size (cm) - Length 0 -Current Size (cm) - Width 0 -Current Size (cm) - Depth 0 -Total Square Cm 0 -Photo Taken Yes -Exudate Amt None Present (0 %) -Wound Margin Flat & Intact -Granulation Amt Large (67-100%) -Granulation Quality [place] -Necrosis Amt None Present (0 %) -Structure Exposed N/A -Texture (Bertha-wound Skin Appearance) Scarring Rash -Moisture (Bertha-wound Skin Appearance Dry/Scaly ) -Color (Bertha-wound Skin Appearance) Hemosiderin Staining -Temperature (Bertha-wound Skin No Abnormality Appearance) (Pt Warm) -Ulcer Cleansing Rinsed/ Irrigated with Saline -Foul Odor after Cleansing No [Edema Assessment] -Right Calf (cm) 36 -Right Ankle (cm) 21 - Nurse 2 - General Ulcer CM Notes Start: 06/26/18 12:07 Freq: Status: Active Protocol: Activity Type Activity Date Activity User E-Sign Co-Sign Detail Recorded Client Recorded Date Recorded By Document 07/03/18 12:26 DL [id number] 07/03/18 12:28 DL 07/03/18 12:26 Wound Center Nurse 2 [Procedure/Treatment] #1 RLE leg -Time 12:26 -Correct Patient Yes -Correct Side, Site, Position Yes -Correct Procedure No -Procedure Performed No -Post Debridement Size (cm) - Length 0 -Post Debridement Size (cm) - Width 0 -Post Debridement Size (cm) - Depth 0 -Total Square Cm 0 -Wound/Ulcer Outcome Healed- Epithelialized [See Physician Procedure note for Specifics] Pain Scale: 0-10 Numeric [Pain] -Is Patient Pain Free? Yes Musculoskeletal: No Muscle Wasting Neurological: Cranial nerves II-XII grossly intact Psych/Mental Status: Normal Affect Debridement Note Post-Debridement Measurements/Treatment - Nurse 2 - General Ulcer CM Notes Start: 06/26/18 12:07 Freq: Status: Active Protocol: Activity Type Activity Date Activity User E-Sign Co-Sign Detail Recorded Client Recorded Date Recorded By Document 06/26/18 12:21 MW [id number] 06/26/18 12:23 MW Document 07/03/18 12:26 DL [id number] 07/03/18 12:28 DL 06/26/18 07/03/18 12:21 12:26 Wound Center Nurse 2 #1 RLE leg -Time 12:21 12:26 -Correct Patient Yes Yes -Correct Side, Site, Position Yes Yes -Correct Procedure No No -Procedure Performed No No -Post Debridement Size (cm) - Length 0 0 -Post Debridement Size (cm) - Width 0 0 -Post Debridement Size (cm) - Depth 0 0 -Total Square Cm 0 0 -Wound/Ulcer Outcome Healed- Healed- Epithelialized Epithelialized -Ulcer Cleansing Not Cleansed -Foul Odor after Cleansing No -Bleeding Controlled with NA -Treatment Response Procedure Tolerated Well Pain Scale: 0-10 Numeric Is Patient Pain Free? Yes Yes No debridement was completed today Assessment/Plan Active Problems Bilateral lower extremity edema (Acute) Ulcer of right lower extremity (Acute) Assessment: Right lower extremity ulcer with fat layer exposed. Bilateral lower extremity swelling. Diabetes Mellitus. Possible PAD in a patient with CAD. Plan: Ulcer Stays healed. Still some lower extremity edema. Advised to use his compression stockings daily, okay to remove at night. Also advised to adequately moisturize lower extremity with moisturizer such as Eucerin, Cetaphil, Aquaphor etc. Strongly advised to follow-up with his title abstractor due to his extensive cardiac history. Continue Lasix. Vascular and venous studies ordered. Yet to be done. Advised to follow up with his PCP or title abstractor for review. Optimal blood glucose control. Advised to follow-up with his PCP for continued management of his blood sugars. Discharge from the wound center. This note was generated with [employer] dictation software. It may contain incorrect words, spelling, and punctuation that were not noted in checking the note before signing.
--- NOTE | 2018-07-03 12:36 | PN.PCM_ITS ---
(1) Bilateral lower extremity edema Status: Acute Current Visit: Yes Code(s): R60.0 - Localized edema (2) Ulcer of right lower extremity Status: Acute Current Visit: Yes Code(s): L97.919 - Non-pressure chronic ulcer of unspecified part of right lower leg with unspecified severity (3) Diabetes Status: Chronic Current Visit: No Code(s): E11.9 - Type 2 diabetes mellitus without complications Type of Wound Date of Service: 07/03/18 Chief Complaint: Right Lower Extremity Ulcer. History of Wound: Mr. Clayton is a 72-year-old with past medical history as stated above who presented to the wound center due to right lower extremity ulcer. He reports worsening bilateral lower extremity swelling which was noted about a month ago subsequently about a week ago noted right lower extremity ulcer. Denies any history of trauma. He has tried some home care without any significant relief. Bilateral lower extremity swelling also appears to have persisted despite diuretic management. He feels well otherwise and denies chills, fever but does note shortness of breath he has an extensive cardiac history and status post stenting. Progress of Wound: Healed. - Physical Exam Vital Signs Temp Pulse Resp BP 97.8 F 55 L 18 123/66 H 07/03/18 12:17 07/03/18 12:17 07/03/18 12:17 07/03/18 12:17 General: Alert, Oriented x3, Cooperative, No apparent distress HEENT: Atraumatic Oral: Moist Mucosa Neck: Supple Lungs: Normal air movement Abdomen: Soft, Non Tender Wound Measurements and Assessment WC - Nurse 1 - General Ulcer Measurement Start: 06/26/18 12:07 Freq: Status: Active Protocol: Activity Type Activity Date Activity User E-Sign Co-Sign Detail Recorded Client Recorded Date Recorded By Document 07/03/18 12:17 DL [id number] 07/03/18 12:22 DL 07/03/18 12:17 Wound Center Nurse 1 [Ulcer Assessment] #1 RLE leg -Current Size (cm) - Length 0 -Current Size (cm) - Width 0 -Current Size (cm) - Depth 0 -Total Square Cm 0 -Photo Taken Yes -Exudate Amt None Present (0 %) -Wound Margin Flat & Intact -Granulation Amt Large (67-100%) -Granulation Quality [place] -Necrosis Amt None Present (0 %) -Structure Exposed N/A -Texture (Bertha-wound Skin Appearance) Scarring Rash -Moisture (Bertha-wound Skin Appearance Dry/Scaly ) -Color (Bertha-wound Skin Appearance) Hemosiderin Staining -Temperature (Bertha-wound Skin No Abnormality Appearance) (Pt Warm) -Ulcer Cleansing Rinsed/ Irrigated with Saline -Foul Odor after Cleansing No [Edema Assessment] -Right Calf (cm) 36 -Right Ankle (cm) 21 - Nurse 2 - General Ulcer CM Notes Start: 06/26/18 12:07 Freq: Status: Active Protocol: Activity Type Activity Date Activity User E-Sign Co-Sign Detail Recorded Client Recorded Date Recorded By Document 07/03/18 12:26 DL [id number] 07/03/18 12:28 DL 07/03/18 12:26 Wound Center Nurse 2 [Procedure/Treatment] #1 RLE leg -Time 12:26 -Correct Patient Yes -Correct Side, Site, Position Yes -Correct Procedure No -Procedure Performed No -Post Debridement Size (cm) - Length 0 -Post Debridement Size (cm) - Width 0 -Post Debridement Size (cm) - Depth 0 -Total Square Cm 0 -Wound/Ulcer Outcome Healed- Epithelialized [See Physician Procedure note for Specifics] Pain Scale: 0-10 Numeric [Pain] -Is Patient Pain Free? Yes Musculoskeletal: No Muscle Wasting Neurological: Cranial nerves II-XII grossly intact Psych/Mental Status: Normal Affect Debridement Note Post-Debridement Measurements/Treatment - Nurse 2 - General Ulcer CM Notes Start: 06/26/18 12:07 Freq: Status: Active Protocol: Activity Type Activity Date Activity User E-Sign Co-Sign Detail Recorded Client Recorded Date Recorded By Document 06/26/18 12:21 MW [id number] 06/26/18 12:23 MW Document 07/03/18 12:26 DL [id number] 07/03/18 12:28 DL 06/26/18 07/03/18 12:21 12:26 Wound Center Nurse 2 #1 RLE leg -Time 12:21 12:26 -Correct Patient Yes Yes -Correct Side, Site, Position Yes Yes -Correct Procedure No No -Procedure Performed No No -Post Debridement Size (cm) - Length 0 0 -Post Debridement Size (cm) - Width 0 0 -Post Debridement Size (cm) - Depth 0 0 -Total Square Cm 0 0 -Wound/Ulcer Outcome Healed- Healed- Epithelialized Epithelialized -Ulcer Cleansing Not Cleansed -Foul Odor after Cleansing No -Bleeding Controlled with NA -Treatment Response Procedure Tolerated Well Pain Scale: 0-10 Numeric Is Patient Pain Free? Yes Yes No debridement was completed today Assessment/Plan Active Problems Bilateral lower extremity edema (Acute) Ulcer of right lower extremity (Acute) Assessment: Right lower extremity ulcer with fat layer exposed. Bilateral lower extremity swelling. Diabetes Mellitus. Possible PAD in a patient with CAD. Plan: Ulcer Stays healed. Still some lower extremity edema. Advised to use his compression stockings daily, okay to remove at night. Also advised to adequately moisturize lower extremity with moisturizer such as Eucerin, Cetaphil , Aquaphor etc. Strongly advised to follow-up with his electric needle specialist due to his extensive cardiac history. Continue Lasix. Vascular and venous studies ordered. Yet to be done. Advised to follow up with his PCP or electric needle specialist for review. Optimal blood glucose control. Advised to follow-up with his PCP for continued management of his blood sugars. Discharge from the wound center. This note was generated with [employer]view dictation software. It may contain incorrect words, spelling, and punctuation that were not noted in checking the note before signing.
--- NOTE | 2018-07-10 07:41 | VDLE_ITS ---
Reason For Study: ULCER RIGHT LEFT CFV is compressible, spontaneous, phasic, CFV is compressible, spontaneous, phasic, competent and demonstrates normal competent, and demonstrates normal augmentation. augmentation. FV is compressible, spontaneous, phasic, FV is compressible, spontaneous, phasic, competent and demonstrates normal competent and demonstrates normal augmentation. augmentation. POP V is compressible, spontaneous, phasic, POP V is compressible, spontaneous, phasic, competent and demonstrates normal competent and demonstrates normal augmentation. augmentation. T/P Trunk is compressible. T/P Trunk is compressible. PTV is compressible. PTV is compressible. RT PerV is compressible. LT PerV is compressible. RT GSV at SFJ is compressible and Left GSV is compressible and competent INCOMPETENT for greater than 5 sec. throughout. RT GSV above knee has been harvested for LEFT SSV is compressible and thick walled. CABG. Left SSV measures .5 x .5 cm and is RT GSV below knee is compressible and INCOMPETENT for greater than .5 seconds. competent. RT SSV is compressible and thick walled. RT SSV measures .3 x .3 cm and is INCOMPETENT for greater than .5 seconds. RT Pig Lead Melter Helper located 28 cm above the medial maleolus is INCOMPETENT for greater than .5 seconds. Interpretation Summary Deep veins of the lower extremities are bilaterally patent and compressible segmentally. There is no evidence of deep vein thrombosis on either side. Valvular competence appears intact within the proximal deep venous systems bilaterally. The right sapheno-femoral junction is incompetent . The right greater saphenous vein has been harvested above the knee, and is patent and competent below the knee. The left greater saphenous vein is patent and competent. Small saphenous veins are incompetent bilaterally, and demonstrate chronic vein wall thickening. An incompetent director of assessing vein is noted in the right calf, located 28 centimeters proximal to the right medial malleolus. Ordering Physician: Christiano Marino Referring Physician: NAOMY PEREZ CHI Performed By: Alecia Sage, ELSY, RVT
--- NOTE | 2018-07-14 15:34 | LEAS ---
Arterial Study - Arterial Study Arterial Study: This is a 72-year-old male with a lower extremity wound and suspicion of peripheral arterial occlusive disease. He is brought to the noninvasive vascular laboratory at this time for the purpose of bilateral noninvasive lower extremity arterial assessment. Doppler signal assessment was used to evaluate the pulses at ankle level bilaterally. On the right, the posterior tibial pulse was biphasic. The right dorsalis pedis pulse was monophasic. The left posterior tibial and dorsalis pedis pulses were biphasic. Segmental limb pressures were obtained bilaterally. The right ankle pressure, as determined by posterior tibial pulse, was measured at 177 mmHg. The right ankle pressure, as determined by dorsalis pedis pulse, was measured at 167 mmHg. The right digital pressure was measured at 121 mmHg. The left ankle pressure, as determined by posterior tibial pulse, was measured at 187 mmHg. The left ankle pressure, as determined by dorsalis pedis pulse, was measured at 169 mmHg. The left digital pressure was measured at 124 mmHg. Pulse-volume recordings were obtained bilaterally and segmentally. Waveform amplitudes appeared to be satisfactory at low thigh, calf, and ankle levels bilaterally. Waveform amplitude at digital level in the left lower extremity was diminished. Resting ankle-brachial indices were calculated bilaterally. The resting right ankle-brachial index was calculated to be 1.11. The resting left ankle-brachial index was calculated to be 1.18. Digital-brachial indices were calculated bilaterally. The right digital-brachial index was calculated to be 0.76. The left digital-brachial index was calculated to be 0.78. Impression: Based upon the findings of this resting noninvasive lower extremity arterial study, there is no evidence of significant arterial occlusive disease in the lower extremities bilaterally. Resting ankle-brachial indices are bilaterally normal. Digital-brachial indices are also bilaterally normal. Doppler signal assessment is suspicious for possible occlusive disease, as is the pulse-volume recording relative to the digital vasculature in the left lower extremity. Mild occlusive disease may be present, warranting clinical correlation. However, the findings of this resting study do not definitively identify significant occlusive disease.
--- NOTE | 2018-07-14 15:43 | LEAS_ITS ---
Arterial Study - Arterial Study Arterial Study: This is a 72-year-old male with a lower extremity wound and suspicion of peripheral arterial occlusive disease. He is brought to the noninvasive vascular laboratory at this time for the purpose of bilateral noninvasive lower extremity arterial assessment. Doppler signal assessment was used to evaluate the pulses at ankle level bilaterally. On the right, the posterior tibial pulse was biphasic. The right dorsalis pedis pulse was monophasic. The left posterior tibial and dorsalis pedis pulses were biphasic. Segmental limb pressures were obtained bilaterally. The right ankle pressure, as determined by posterior tibial pulse, was measured at 177 mmHg. The right ankle pressure, as determined by dorsalis pedis pulse, was measured at 167 mmHg. The right digital pressure was measured at 121 mmHg. The left ankle pressure, as determined by posterior tibial pulse, was measured at 187 mmHg. The left ankle pressure, as determined by dorsalis pedis pulse, was measured at 169 mmHg. The left digital pressure was measured at 124 mmHg. Pulse-volume recordings were obtained bilaterally and segmentally. Waveform amplitudes appeared to be satisfactory at low thigh, calf, and ankle levels bilaterally. Waveform amplitude at digital level in the left lower extremity was diminished. Resting ankle-brachial indices were calculated bilaterally. The resting right ankle-brachial index was calculated to be 1.11. The resting left ankle- brachial index was calculated to be 1.18. Digital-brachial indices were calculated bilaterally. The right digital- brachial index was calculated to be 0.76. The left digital-brachial index was calculated to be 0.78. Impression: Based upon the findings of this resting noninvasive lower extremity arterial study, there is no evidence of significant arterial occlusive disease in the lower extremities bilaterally. Resting ankle-brachial indices are bilaterally normal. Digital-brachial indices are also bilaterally normal. Doppler signal assessment is suspicious for possible occlusive disease, as is the pulse-volume recording relative to the digital vasculature in the left lower extremity. Mild occlusive disease may be present, warranting clinical correlation. However, the findings of this resting study do not definitively identify significant occlusive disease.
== END 2018-07-21 23:59 ==
LOC: CVS 08:00
PROVIDERS: Family Provider Family Medicine Geriatric Medicine; PCP Family Medicine Geriatric Medicine; Visit Provider Internal Medicine
DX: Z09 Encounter for follow-up examination after completed treatment for conditions other than malignant neoplasm (principal); R60.0 Localized edema; M79.89 Other specified soft tissue disorders; E11.9 Type 2 diabetes mellitus without complications; I25.10 Atherosclerotic heart disease of native coronary artery without angina pectoris
CPT/HCPCS: 93923; 93970; 99212; G0463

== ENCOUNTER → 2018-07-17 15:08 | Outpatient (CLI) | payer MEDICARE, SELFPAY ==
[2018-07-17 16:07] LABS: Absolute Lymphocyte Count 1.61 X10^3/ul (0.83-4.51); Absolute Neutrophil Count 2.8 X10^3/uL (2.0-7.7); Basophil# 0.07 X10^3/uL; Basophil% 1.4 % (0-1); Eosinophil# 0.13 X10^3/uL; Eosinophils% 2.6 % (0-5); Hematocrit 35.1 % (40-54); Lymphocyte # 1.61 X10^3/ul (4.0); Lymphocyte % 31.9 % (19-41); Mean Corp Hgb Conc 31.3 g/gl (32-36); Mean Corpuscular Hgb 27.6 pg (27.0-32.0); Mean Corpuscular Volume 88.2 fL (80-94); Mean Platelet Vol. 9.9 fl (6.2-12.0); Monocyte% 7.9 % (0-10); Neutrophil # 2.83 X10^3/uL (2.7-7.7); Neutrophil % 56.2 % (47-70); Platelet Count 193 K/mm3 (150-450); RBC Distribution Width SD 48.5 fl (35.1-43.9); Red Blood Count 3.98 M/mm3 (4.6-6.2)
[2018-07-17 16:22] LABS: Anion Gap 8 (5-15); BUN 30 mg/dL (7-18); BUN/Creat Ratio 19.9 RATIO (10-20); Calcium,Total 8.8 mg/dL (8.5-10.1); Chloride 103 mmol/L (98-107); Creatinine, Serum 1.51 mg/dL (0.70-1.30); EST Glomerular Filtration Rate 48 mL/min (>60); Est Glom Filt Rate - Afr Amer 58 mL/min (>60); Glucose 392 mg/dL (74-106); Potassium 4.7 mmol/L (3.5-5.1); Sodium Level 138 mmol/L (136-145)
[2018-07-17 17:11] LABS: POSITIVE COUNT NO; POSITIVE DIFFERENTIAL NO; POSITIVE MORPHOLOGY NO
== END ==
PROVIDERS: Family Provider Family Medicine Geriatric Medicine; PCP Family Medicine Geriatric Medicine; Visit Provider Family Medicine Geriatric Medicine
DX: R60.9 Edema, unspecified (principal)
CPT/HCPCS: 36415; 80048; 85025

== ENCOUNTER → 2018-09-11 10:25 | Outpatient (CLI) | payer MEDICARE, SELFPAY ==
[2018-09-11 13:05] LABS: Absolute Lymphocyte Count 1.69 X10^3/ul (0.83-4.51); Basophil# 0.06 X10^3/uL; Basophil% 1.1 % (0-1); Eosinophil# 0.17 X10^3/uL; Eosinophils% 3.1 % (0-5); Hematocrit 33.3 % (40-54); Hemoglobin 10.4 g/dl (13.0-16.5); Lymphocyte # 1.69 X10^3/ul (4.0); Lymphocyte % 30.7 % (19-41); Mean Corp Hgb Conc 31.2 g/gl (32-36); Mean Corpuscular Hgb 27.7 pg (27.0-32.0); Mean Corpuscular Volume 88.6 fL (80-94); Monocyte# 0.62 X10^3/uL; Monocyte% 11.3 % (0-10); Neutrophil # 2.96 X10^3/uL (2.7-7.7); Neutrophil % 53.8 % (47-70); Platelet Count 217 K/mm3 (150-450); RBC Distribution Width CV 14.4 % (11.6-14.6); RBC Distribution Width SD 46.3 fl (35.1-43.9); Red Blood Count 3.76 M/mm3 (4.6-6.2); White Blood Count 5.5 K/mm3 (4.4-11.0)
[2018-09-11 13:23] LABS: AST(SGOT) 14 U/L (15-37); Alanine Aminotransfer ALT/SGPT 23 U/L (16-61); Albumin, Serum 3.4 g/dL (3.2-5.0); Alkaline Phosphatase 65 U/L (45-117); Anion Gap 5 (5-15); BUN 19 mg/dL (7-18); BUN/Creat Ratio 15.4 RATIO (10-20); Calcium,Total 8.5 mg/dL (8.5-10.1); Chloride 107 mmol/L (98-107); Cholesterol 139 mg/dL (200); Creatinine, Serum 1.23 mg/dL (0.70-1.30); EST Glomerular Filtration Rate 61 mL/min (>60); Est Glom Filt Rate - Afr Amer 74 mL/min (>60); Globulin 3.5 g/dL (2.2-4.2); Glucose 242 mg/dL (74-106); High Density Lipoprotein 42 mg/dL; Potassium 4.6 mmol/L (3.5-5.1); Protein, Total 6.9 g/dL (6.4-8.2); Sodium Level 139 mmol/L (136-145); Thyroid Stim Hormone (TSH) 4.12 uIU/mL (0.358-3.74); Triglycerides 192 mg/dL; Very Low Density Lipoprotein 38 mg/dL (5-40)
[2018-09-11 14:08] LABS: POSITIVE COUNT NO; POSITIVE DIFFERENTIAL NO; POSITIVE MORPHOLOGY NO
== END ==
PROVIDERS: Family Provider Family Medicine Geriatric Medicine; PCP Family Medicine Geriatric Medicine; Visit Provider Family Medicine Geriatric Medicine
DX: E11.9 Type 2 diabetes mellitus without complications (principal)
CPT/HCPCS: 36415; 80053; 80061; 84403; 84443; 85025

== ENCOUNTER 2018-10-12 21:56 | Emergency (ER) | payer MEDICARE, SELFPAY ==
[2018-10-12 21:56] VITALS: BP 154/70; PULSE 72; RESP 16; TEMP 36.2; O2SAT 97; BMI 25.7
--- NOTE | 2018-10-12 22:32 | ED.VISSUMM ---
- ER Visit Summary Date of Service: 10/12/18 Chief Complaint: missing insulin needle in RLQ abdominal wall History of Present Illness: The patient is a 72 M Who presents for evaluation of possible insulin needle in his abdomen. Patient was using his insulin at his family's house in [place], and did not follow his normal routine. Afterwards he noted the needle was missing from his multi use insulin pen. He has a small area of tenderness on his abdomen where he thinks the needle may have broken off. He is not sure the exact injection location. No other complaints. Physical Examination: She is well-nourished and well-developed, hemodynamically stable and afebrile laying in bed in no distress. Examination of the abdomen shows multiple contusions of the subcutaneous tissue from insulin injections. The right lower abdomen shows 2 contusion sites, one with a punctate needle marking the middle and a small scab. Mildly tender to palpation with no obvious foreign body palpated. Remainder of exam unremarkable. Test Results: Emergency Department Course and Treatment: Outside ultrasound was used to evaluate for retained needle in the subcutaneous tissue at the site patient stated he had injected his insulin tonight. Bedside ultrasound did not show any object consistent with a needle in the subcutaneous tissue. A KUB with 2 views was then performed to evaluate the subcutaneous tissue for radiopaque foreign body. None was noted. It is unclear what happened to patient's needle, but it has not been found in his subcutaneous tissue. Patient discharged home. Treatment Plan: [] Disposition: [] Impression: Concern for retained insulin needle in abdominal subcutaneous tissue This note was generated with [employer] dictation software. It may contain incorrect words, spelling, and punctuation that were not noted in review of the chart prior to signing ED Disposition - Plan for ED Patient: Chief Complaint: Foreign Body Referrals: Georgi aMrquez Chi, MD [Primary Care Provider] -
--- NOTE | 2018-10-12 22:40 | RAD_ITS ---
STUDY: X-RAY - ABDOMEN/PELVIS REASON FOR EXAM: Male, 72 years old. Foreign body. Insulin needle in right lower quadrant. TECHNIQUE: Supine and lateral views of the abdomen. COMPARISON: None. FINDINGS: There is a nonobstructive bowel gas pattern. Stool burden is moderate to large. The visualized liver, spleen and kidneys are grossly normal in size and morphology. Cholecystectomy clips are noted in the right upper quadrant. Surgical clips are noted in the right groin and medial thigh. There is no evidence of radiopaque foreign body in the right lower quadrant. Normal visualized osseous structures. RAD/Abdomen Single View IMPRESSION: 1. No evidence of foreign body compatible with insulin needle. 2. Nonobstructive abdomen. Moderate to large stool burden. Electronically Signed: Lauren Cornell MD at 23:54 EST Tel , Service support ,
--- NOTE | 2018-10-12 23:59 | ED.DEP ---
ED Disposition - Plan for ED Patient: Disposition: Home or Assisted Living Chief Complaint: Foreign Body Instructions: ED Foreign Body Soft Tissue Referrals: Georgi Marquez Chi, MD [Primary Care Provider] - 1-2 Days if not improving Additional Instructions: There was no needle noted with the ultrasound or with the x-ray. If you have any further concerns for pain at the site where you think the needle broke off, please follow-up with your family doctor. Use caution in the area where you had done your injection in case the needle was on the floor or on another surface where you may accidentally get punctured. If you have any worsening of your condition or any new concerning symptoms, please return immediately to the emergency department for another evaluation.
== END 2018-10-13 00:11 | disposition home or self-care (01) ==
PROVIDERS: Emergency Provider Emergency Medicine; Family Provider Family Medicine Geriatric Medicine; PCP Family Medicine Geriatric Medicine
DX: E11.9 Type 2 diabetes mellitus without complications (principal); Z79.4 Long term (current) use of insulin; Z90.49 Acquired absence of other specified parts of digestive tract
CPT/HCPCS: 74018; 99282

== ENCOUNTER → 2018-11-06 11:06 | Outpatient (CLI) | payer MEDICARE, SELFPAY ==
[2018-10-12 21:56] VITALS: BMI 25.7
[2018-11-06 17:34] LABS: Protein, Urine (Random) 26.5 mg/dL (<11.9); Protein:Creat Ratio 185 mg/g CRE (0-200)
--- OUTSIDE RECORDS SUMMARY | 2019-01-11 07:05 | XMS RPT_ITS ---
:1945 Author Organization [place] Support Name Relationship Address Phone R Unavailable Unavailable Unavailable SHARP, EFRAIN Unavailable [id number] + [facility] Unavailable Unavailable Unavailable SHARP, EFRAIN Unavailable [address] + [facility] Unavailable Unavailable Unavailable SHARP, EFRAIN Unavailable [address] + [facility] Unavailable Unavailable Unavailable SHARP, EFRAIN Unavailable [address] + [place] Unavailable Unavailable Unavailable SHARP, EFRAIN Unavailable [address] + [facility] Unavailable Unavailable Unavailable SHARP, EFRAIN Unavailable [address] + [facility] Unavailable Unavailable Unavailable SHARP, EFRAIN Unavailable [address] + [place] Unavailable Unavailable Unavailable SHARP, EFRAIN Unavailable [address] + [place] Unavailable Unavailable Unavailable SHARP, EFRAIN Unavailable [address] + [facility] Unavailable Unavailable Unavailable SHARP, EFRAIN Unavailable [address] + [place] Unavailable Unavailable Unavailable SHARP, EFRAIN Unavailable [address] + [place] Unavailable Unavailable Unavailable SHARP, EFRAIN Unavailable [address] + [place] Unavailable Unavailable Unavailable SHARP, EFRAIN Unavailable [address] + [place] Unavailable Unavailable Unavailable SHARP, EFRAIN Unavailable [address] + [facility] Unavailable Unavailable Unavailable SHARP, EFRAIN Unavailable [address] + [place] Unavailable Unavailable Unavailable SHARPEFRAIN Unavailable [address] + [place] Unavailable Unavailable Unavailable SHARPJUAN DIEGOIE Unavailable [address] + [place] Unavailable Unavailable Unavailable SHARP EFRAIN Unavailable [address] + [place] Care Team Providers Name Role Phone KAROLYN WEEKS Attending Unavailable ANA, NAOMY CHI Referring Unavailable Ana, Naomy Chi Primary Care Unavailable Geena Hu Attending Unavailable Lauren Munoz Attending Unavailable Ana, Naomy Chi Primary Care Unavailable Ana, Naomy Chi Attending Unavailable Ana, Naomy Chi Primary Care Unavailable Ana, Naomy Chi Attending Unavailable Ana, Naomy Chi Primary Care Unavailable Ana, Naomy Chi Attending Unavailable Ana, Naomy Chi Primary Care Unavailable Ana, Naomy Chi Attending Unavailable Ana, Naomy Chi Primary Care Unavailable Ana, Naomy Chi Attending Unavailable Ana, Naomy Chi Primary Care Unavailable Ana, Naomy Chi Attending Unavailable Ana, Naomy Chi Primary Care Unavailable Adam Stanley Attending Unavailable JadenAdam Referring Unavailable Ana, Naomy Chi Primary Care Unavailable Oleghe, Efewongbe Attending Unavailable Ana, Naomy Chi Primary Care Unavailable Oleghe, Efewongbe Attending Unavailable Ana, Naomy Chi Primary Care Unavailable Oleghe, Efewongbe Referring Unavailable Oleghe, Efewongbe Attending Unavailable Oleghe, Efewongbe Attending Unavailable Oleghe, Efewongbe Attending Unavailable Ana, Naomy Chi Attending Unavailable Ana, Naomy Chi Primary Care Unavailable Oleghe, Efewongbe Attending Unavailable Oleghe, Efewongbe Referring Unavailable Ana, Naomy Chi Primary Care Unavailable Ana, Naomy Chi Attending Unavailable Ana, Naomy Chi Primary Care Unavailable Ana, Naomy Chi Primary Care Unavailable Lauren Munoz Attending Unavailable PROBLEMS PROBLEMS DATE TYPE CONDITION / CODE ATTENDING STATUS SOURCE 08/11/2018 Active Transient cerebral KAROLYN WEEKS Active [place] ischemic attack, Clinic Main unspecified / [place] G45.9(ICD-10) Repository 08/11/2018 Active 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 / [place] I74.9(ICD-10) Repository 04/29/2016 Active Type 2 diabetes KAROLYN WEEKS Active [place] mellitus with other Clinic Main circulatory [place] complications / Repository E11.59(ICD-10) 04/24/2016 Active Essential (primary) KAROLYN WEEKS Active [place] hypertension / Clinic Main I10(ICD-10) [place] Repository 04/20/2016 Active Atherosclerosis of KAROLYN WEEKS Active [place] coronary artery [facility] Main bypass graft(s) [place] without angina Repository pectoris / I25.810(ICD-10) 04/20/2016 Active Gastro-esophageal KAROLYN WEEKS Active [place] reflux disease Clinic Main without esophagitis / [place] K21.9(ICD-10) Repository 04/20/2016 Active Mixed hyperlipidemia KAROLYN WEEKS Active [place] / E78.2(ICD-10) Clinic Main [place] Repository 07/22/2018 Unknown L97.912 - Oleghe, Active [place] Non-pressure chronic [place] Community ulcer of unspecified Hospital part of right lower Repository leg with fat layer exposed / L97.912(ICD-10) 03/01/2018 Unknown E78.4 - Other Ana, Naomy Chi Active [place] hyperlipidemia / Community E78.4(ICD-10) Hospital Repository 12/06/2017 Unknown E11.9 - Type 2 Ana, Naomy Chi Active [place] diabetes mellitus Community without complications Hospital / E11.9(ICD-10) Repository 12/06/2017 Unknown F52.8 - Other sexual Ana, Naomy Chi Active [place] dysfunction not due Community to a substance or Hospital known physiological Repository condition / F52.8(ICD-10) 12/06/2017 Unknown I10 - Essential Ana, Naomy Chi Active [place] (primary) Community hypertension / Hospital I10(ICD-10) Repository PROCEDURES PROCEDURES No Procedure Records FoundRESULTS RESULTS PROTEIN+CREATININE Collected: Status: F Source: [place] [facility]ATIO,URINE 11/06/2018 3:43 PM [facility] TYPE CODE TESTS RESULT OUT OF RANGE REFERENCE UNITS LAB L501.1200 NO RANGE EST. mg/dL Normal UR CREAT 143.00 LAB L501.1930 <11.9 mg/dL High 26.5 PROTEIN,UR.R AN. LAB L501.1940 0-200 mg/g CRE Normal PROT:CRE 185 RATIO Performed By: #### L501.0900 #### [facility] [address] [place], [address] DISCHARGE INSTRUCTION Observed: 10/13/2018 Status: F Source: [place] 12:10 AM [facility] REPOSITORY [facility] Medical Records Department [address] [address] Discharge Instruction 10/12/18 2359 MR#: [id number] Acct: [id number] Name: DEBI FAIRCHILD Rep #: [id number] : 1945 72 From: Geena Hu MD PCP: Naomy Perez MD, Chi Status: REG ER ED Disposition - Plan for ED Patient: Disposition: Home or Assisted Living Chief Complaint: Foreign Body Instructions: ED Foreign Body Soft Tissue Referrals: Naomy Perez Chi, MD [Primary Care Provider] - 1-2 Days if not improving Additional Instructions: There was no needle noted with the ultrasound or with the x-ray. If you have any further concerns for pain at the site where you think the needle broke off, please follow-up with your family doctor. Use caution in the area where you had done your injection in case the needle was on the floor or on another surface where you may accidentally get punctured. If you have any worsening of your condition or any new concerning symptoms, please return immediately to the emergency department for another evaluation. What to do if you have Problems For any increased pain, shortness of breath, bleeding, nausea or vomiting, chest pain, or any unexpected problems, contact your Primary Care Provider. Call [facility] ([phone]) or report to the closest Emergency Room. Call 911 if necessary. 10/13/18 0010 <Electronically signed by Geena Hu MD> Date Geena Hu MD Cosigner Signature (If Indicated): Date CC: Naomy Perez MD EMERGENCY DEPARTMENT Observed: 10/13/2018 Status: F Source: [place] SUMMARY 12:10 AM [facility] REPOSITORY [facility] Medical Records Department [address] [place] [address] Emergency Department Summary 10/12/18 2232 MR#: [id number] Acct: [id number] Name: DEBI FAIRHCILD Rep #: [id number] : 1945 72 From: Geena Hu MD PCP: Naomy Perez MD, Chi Status: REG ER - ER Visit Summary Date of Service: 10/12/18 Chief Complaint: missing insulin needle in RLQ abdominal wall History of Present Illness: The patient is a 72 M Who presents for evaluation of possible insulin needle in his abdomen. Patient was using his insulin at his family's house in a aranda, and did not follow his normal routine. Afterwards he noted the needle was missing from his multi use insulin pen. He has a small area of tenderness on his abdomen where he thinks the needle may have broken off. He is not sure the exact injection location. No other complaints. Physical Examination: She is well-nourished and well-developed, hemodynamically stable and afebrile laying in bed in no distress. Examination of the abdomen shows multiple contusions of the subcutaneous tissue from insulin injections. The right lower abdomen shows 2 contusion sites, one with a punctate needle marking the middle and a small scab. Mildly tender to palpation with no obvious foreign body palpated. Remainder of exam unremarkable. Test Results: Emergency Department Course and Treatment: Outside ultrasound was used to evaluate for retained needle in the subcutaneous tissue at the site patient stated he had injected his insulin tonight. Bedside ultrasound did not show any object consistent with a needle in the subcutaneous tissue. A KUB with 2 views was then performed to evaluate the subcutaneous tissue for radiopaque foreign body. None was noted. It is unclear what happened to patient's needle, but it has not been found in his subcutaneous tissue. Patient discharged home. Treatment Plan: [] Disposition: [] Impression: Concern for retained insulin needle in abdominal subcutaneous tissue This note was generated with [employer] dictation software. It may contain incorrect words, spelling, and punctuation that were not noted in review of the chart prior to signing ED Disposition - Plan for ED Patient: Chief Complaint: Foreign Body Referrals: Naomy Perez Chi, MD [Primary Care Provider] - What to do if you have Problems For any increased pain, shortness of breath, bleeding, nausea or vomiting, chest pain, or any unexpected problems, contact your Primary Care Provider. Call [facility] ([phone]) or report to the closest Emergency Room. Call 911 if necessary. 10/13/18 0010 <Electronically signed by Geena Hu MD> Date Geena Hu MD Cosigner Signature (If Indicated): Date CC: Naomy Perez MD ABDOMEN SINGLE VIEW Observed: 10/12/2018 Status: F Source: [place] 10:32 PM [facility] REPOSITORY [facility] Imaging Services [address] [place] [address] Abdomen Single View MR#: [id number] Acct: [id number] Name: DEBI FAIRCHILD Rep #: [id number] : 1945 M 72 From: Lauren Cornell MD PCP: Naomy Perez MD, Chi Status: REG ER Study: Abdomen Single View Date of Exam: 10/12/18 Exam# [id number] Ordering Dr: Geena Hu MD STUDY: X-RAY - ABDOMEN/PELVIS REASON FOR EXAM: Male, 72 years old. Foreign body. Insulin needle in right lower quadrant. TECHNIQUE: Supine and lateral views of the abdomen. COMPARISON: None. FINDINGS: There is a nonobstructive bowel gas pattern. Stool burden is moderate to large. The visualized liver, spleen and kidneys are grossly normal in size and morphology. Cholecystectomy clips are noted in the right upper quadrant. Surgical clips are noted in the right groin and medial thigh. There is no evidence of radiopaque foreign body in the right lower quadrant. Normal visualized osseous structures. RAD/Abdomen Single View IMPRESSION: 1. No evidence of foreign body compatible with insulin needle. 2. Nonobstructive abdomen. Moderate to large stool burden. Electronically Signed: Lauren Cornell MD at 23:54 EST Tel , Service support , CC: Geena Hu MD; Naomy Perez MD Leave Manager: Signed TESTOSTERONE, SERUM TOTAL Collected: 09/11/2018 Status: F Source: [place] 10:26 AM [facility] REPOSITORY TYPE CODE TESTS RESULT OUT OF REFERENCE UNITS RANGE LAB L509.3000 ng/dL Testosterone Normal 496.59 Result Comment: NORMAL REFERENCE RANGES MALE AGE <50 123.06 - 813.86 ng/dL MALE AGE >50 89.98 - 780.10 ng/dL FEMALE PREMENOPAUSE AGE 21 - 60 9.01 - 47.94 ng/dL FEMALE POSTMENOPAUSE AGE 45 - 89 <7.00 - 45.62 ng/dL REFERENCE RANGE AND METHODOLOGY CHANGED 10/10/2017 Performed By: #### L509.3000 #### [facility] [address] [place], [address] COMPREHENSIVE METABOLIC Collected: 09/11/2018 Status: F [facility] 10:26 AM [facility] REPOSITORY TYPE CODE TESTS RESULT OUT OF RANGE REFERENCE UNITS LAB L501.0100 74-106 mg/dL High GLU 242 Result Comment: Glucose result greater than or equal to 200 mg/dL suggests DIABETES MELLITUS per A.D.A. criteria. Please note revised GLUCOSE reference range effective 2017. LAB L501.1000 7-18 mg/dL High BUN 19 LAB L501.1100 0.70-1.30 mg/dL Normal CREAT,SERUM 1.23 Result Comment: The validity of the calculated GFR AND GFRAA in patients over 70 years has not been determined. Clinical correlation is essential. LAB L501.1110 >60 mL/min Normal EST GFR 61 Result Comment: Non- GFR Calc LAB L501.1115 >60 mL/min Normal EST GFR - AA 74 Result Comment: GFR Calc LAB L501.1300 10-20 RATIO Normal BUN/CRE 15.4 LAB L501.1500 6.4-8.2 g/dL T Normal PROT 6.9 LAB L501.1800 3.2-5.0 g/dL Normal ALB 3.4 LAB L501.1950 2.2-4.2 g/dL Normal GLOB 3.5 LAB L501.2000 0.9-2.4 RATIO Normal A/G 1.0 LAB L501.2200 8.5-10.1 mg/dL CA Normal 8.5 LAB L501.4100 15-37 U/L Low AST 14 LAB L501.4305 45-117 U/L Normal ALK P 65 LAB L501.4405 16-61 U/L Normal ALT 23 LAB L501.4600 0.20-1.00 mg/dL T Normal BILI 0.60 LAB L501.5300 136-145 mmol/L NA Normal 139 LAB L501.5600 3.5-5.1 mmol/L K Normal 4.6 LAB L501.5900 98-107 mmol/L CL Normal 107 LAB L501.6100 21.0-32.0 mmol/L Normal CO2 27.0 LAB L501.6200 5-15 Normal GAP 5 Performed By: #### L500.4050, L500.4100, L501.9520 #### [facility] [address] [place], [address] LIPID PROFILE Collected: 09/11/2018 Status: F Source: [place] 10:26 AM [facility] REPOSITORY TYPE CODE TESTS RESULT OUT OF RANGE REFERENCE UNITS LAB L501.4900 200 mg/dL Normal CHOL 139 Result Comment: <200 mg/dL Desirable 200-240 mg/dL Borderline >240 mg/dL High Risk LAB L501.5000 mg/dL Normal TRIG 192 Result Comment: The drugs N-Acetylcysteine and Metamizole may falsely depress this assay. Serum Triglycerides Reference Interval Normal <150 mg/dL Borderline high 150 - 199 mg/dL High 200 - 499 mg/dL Very High > or = 500 mg/dL LAB L501.6400 mg/dL Normal HDL 42 Result Comment: The drugs N-Acetylcysteine and Metamizole may falsely depress this assay. Reference Range HDL <40 mg/dL Low HDL Cholesterol HDL >or= 60 mg/dL High HDL Cholesterol LAB L501.6500 0-130 mg/dL Normal LDL 59 LAB L501.6600 5-40 mg/dL Normal VLDL 38 Performed By: #### L500.4050, L500.4100, L501.9520 #### [facility] [address] [place], [place], [address] THYROID STIM HORMONE Collected: 09/11/2018 Status: F Source: [place] ([facility]) 10:26 AM [facility] REPOSITORY TYPE CODE TESTS RESULT OUT OF RANGE REFERENCE UNITS LAB L501.9520 0.358-3.74 uIU/mL High TSH 4.12 Performed By: #### L500.4050, L500.4100, L501.9520 #### [facility] [address] [place], [address] CBC W/DIFF, AUTOMATED Collected: 09/11/2018 Status: F Source: [place] 10:26 AM [facility] REPOSITORY TYPE CODE TESTS RESULT OUT OF RANGE REFERENCE UNITS LAB L100.1000 4.4-11.0 K/mm3 Normal WBC 5.5 LAB L100.1200 4.6-6.2 M/mm3 Low RBC 3.76 LAB L100.1300 13.0-16.5 g/dl Low HGB 10.4 LAB L100.1400 40-54 % Low HCT 33.3 LAB L100.1500 80-94 fL Normal MCV 88.6 LAB L100.1600 27.0-32.0 pg Normal MCH 27.7 LAB L100.1700 32-36 g/gl Low MCHC 31.2 LAB L100.1810 11.6-14.6 % Normal RDW CV 14.4 LAB L100.1820 35.1-43.9 fl High RDW SD 46.3 LAB L100.1900 150-450 K/mm3 Normal PLT 217 LAB L100.2000 6.2-12.0 fl Normal MPV 10.0 LAB L100.2100 47-70 % Normal NEUT% 53.8 LAB L100.2200 19-41 % Normal LY% 30.7 LAB L100.2300 0-10 % High MONO% 11.3 LAB L100.2400 0-5 % Normal EO% 3.1 LAB L100.2500 0-1 % High BASO% 1.1 LAB L100.2550 0.0-0.9 % Normal IM GRAN % 0.000 Result Comment: IG% - Immature Granulocytes (promyelocytes, myelocytes and metamyelocytes) > 1% indicates that a LEFT SHIFT is Present. LAB L100.2620 2.0-7.7 X10 3/uL Normal Absolute Neut 3.0 LAB L100.2720 0.83-4.51 X10 3/ul Normal Absolute Lymph 1.69 Performed By: #### L100.0100 #### [facility] [address] [place], [place], [id number] HISTORY PHYSICAL Observed: 08/12/2018 Status: COMPLETED Source: [place] 1:21 PM [facility] REPOSITORY HNO ID: [id number] Author: Karolyn Weeks Service: (none) Author Type: Physician Type: HANDP Filed: 08/12/2018 1:56 PM Note Text: VASCULAR SURGERY INITIAL CONSULT SERVICE DATE: 08/12/2018 SERVICE TIME: 1:21 PM PRIMARY CARE PHYSICIAN: Naomy Perez MD REFERRING PROVIDER: Naomy Perez MD [address] [facility] [address] [address] Consult requested for an opinion regarding the evaluation and treatment of the above. My final impression and recommendations will be communicated back to the requesting physician by way of the shared medical record or letter via US mail. CHIEF COMPLAINT/HISTORY OF PRESENT ILLNESS: Chief Complaint: Bilateral leg pain and swelling History of Present Illness: Debi Fairchild is a 72 year old male presenting with bilateral lower extremity swelling and leg heaviness/discomfort. Patient's leg swelling has improved with introduction of lasix. He has reported that they the legs have progressively worsened over the last couple of years. He did have right foot ulcer which healed with compression. Patient denies claudication symptoms or cramping with walking. He does have history of TIA in past 1 year. PAST MEDICAL/SURGICAL/FAMILY/SOCIAL HISTORY PAST MEDICAL HISTORY Diagnosis Date - Anxiety - Bladder cancer (HCC) - Bladder cancer (HCC) - CAD (coronary artery disease) - Diabetes (HCC) - Diaphragmatic hernia without mention of obstruction or gangrene - Erectile dysfunction - GERD (gastroesophageal reflux disease) - Heart attack (HCC) 1992 - HTN (hypertension) - Hyperlipidemia - Kidney stones - Neuropathy (HCC) - Neuropathy (HCC) - TIA due to embolism (HCC) 08/11/2018 PAST SURGICAL HISTORY Procedure Laterality Date - EGD W/O OR W/BRUSH/WASH 05/02/2010 EGD - EGD W/O OR W/BRUSH/WASH 04/20/2016 EGD - HEART SURGERY HX 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 - IMPELLA CARDIAC ASSIST DEVICE - PAST SURGICAL HISTORY OF kidney stones removed - PAST SURGICAL HISTORY OF Bladder stones - REMOVAL GALLBLADDER 1997 FAMILY HISTORY Problem Relation Age of Onset - Heart Brother - Diabetes Brother SOCIAL HISTORYSocial History Marital status: Spouse name: Years of education: Number of children: Social History Main Topics Smoking status: Former Smoker Packs/day: 1.00 Years: 30.00 Types: Cigarettes Smokeless tobacco: Never Used Comment: quit 1992 Alcohol use: No Drug use: No MEDICATIONS/ALLERGIES Current Outpatient Prescriptions: TRESIBA FLEXTOUCH U-200 200 unit/mL (3 mL) injection once daily. Disp: Rfl: glimepiride (AMARYL) 4 mg tablet Take 4 mg by mouth daily with breakfast. Disp: Rfl: metoprolol tartrate, short acting, (LOPRESSOR) 25 mg tablet Take 25 mg by mouth twice daily. Disp: Rfl: lisinopril (PRINIVIL) 5 mg tablet Take 1 tablet by mouth once daily. (Patient taking differently: Take 40 mg by mouth once daily. ) Disp: Rfl: 0 rosuvastatin (CRESTOR) 20 mg tablet Take 1 tablet by mouth daily at bedtime. Disp: 30 tablet Rfl: 0 clopidogrel (PLAVIX) 75 mg tablet Take 1 tablet by mouth once daily. Disp: 30 tablet Rfl: 0 levothyroxine (SYNTHROID) 25 mcg tablet Take 25 mcg by mouth daily before breakfast. Disp: Rfl: ALPRAZolam (XANAX) 0.25 mg tablet Take 0.25 mg by mouth at bedtime as needed. Disp: Rfl: tamsulosin ER (FLOMAX) 0.4 mg cp24 Take 0.4 mg by mouth once daily. Disp: Rfl: ASPIRIN 81 MG TAB Take one (1) tablet daily . Disp: Rfl: 0 polyethylene glycol 3350 (MIRALAX, GLYCOLAX) 17 gram packet Take 1 Packet by mouth once daily. Disp: 10 Packet Rfl: 0 Insulin Lispro, Human, (HUMALOG KWIKPEN) 100 unit/mL inpn Please inject 28 units Before breakfast Please inject 20 units before lunch Please inject 28 units before dinner Disp: 10 Pen Rfl: 10 Insulin [place], Disposable, (DANA PEN NEEDLE) 32 gauge x 5/32 ndle 3 application four times daily. Disp: 200 Each Rfl: 3 Insulin Lispro, Human, (HUMALOG KWIKPEN) 100 unit/mL inpn Inject 0-10 Units subcutaneously w MEALS. ADMINISTER CORRECTIONAL INSULIN REGARDLESS OF MEAL OR NUTRITION INTAKEScale 2If Blood Glucose (mg/dL) is:Less than 110 Give 0 [id number] Give 0 teqqk165- 200 Give 2 [id number] Give 4 -983 Give 6 [id number] Give 8 [id number] Give 10 unitsGreater than 400 Give 10 units and Notify Provider Disp: Rfl: finasteride (PROPECIA,PROSCAR) 1 mg tablet Take 1 mg by mouth once daily. Disp: Rfl: No current facility-administered medications for this visit. ALLERGIES Allergen Reactions - Ciprofloxacin Other: See Comments REVIEW OF SYSTEMS Constitutional: No weight loss, malaise or fevers. HEENT: Negative for frequent or significant headaches Respiratory: Negative for cough, wheezing, or shortness of breath Cardiovascular: Negative for chest pain and palpitations and Positive for leg swelling Gatrointestinal: Negative for abdominal discomfort, blood in stools or black stools or change in bowel habits Genitourinary: No history of dysuria, frequency, or incontinence Musculoskeletal: Negative for back pain and Positive for joint pain Endocrine: Negative for cold or heat intolerance, polyuria, polydipsia and goiter Hematology/Lymphatic: Negative for prolonged bleeding, bruising easily or swollen nodes Neurologic: No history or headaches, syncope, paralysis, seizures or tremors Integumentary: Negative for itching and Positive for chronic venous changes in BLE PHYSICAL EXAM VITALS: BP 158/64 Pulse 64 Temp (Src) 99 (Temporal Artery) Resp 18 Ht 5' 11 (1.80m) Wt 210 lb (95.3kg) SpO2 94% BMI 29.30 kg/(m2). General: Alert and oriented, No acute distress Integumentary: Normal color, no rash, no lesions. HEENT: EOM, pupils equal, round and reactive. Cardiovascular: Normal S1 AND S2, no rubs, murmurs or gallops. No JVD., Pulse regular. Lungs: Normal breath sounds, no wheezes or crackles. Abdomen: Soft, non-tender, no rigidity. Extremities: Varicose veins Vascular insufficiency findings. Some chronic skin changes in BLE. Healed right foot ulceration. Neurological: Normal cognition and motor skills. Vascular: Carotid Pulse Right: Normal - Left: Normal Brachial Pulse Right: Normal - Left: Normal Radial Pulse Right: Normal - Left: Normal Femoral Pulse Right: Normal - Left: Normal Popliteal Pulse Right: Normal - Left: Normal Posterior Tibial Right: Normal - Left: Normal Dorsalis Pedal Right: Normal - Left: Normal ASSESSMENT 72 yo M seen for bilateral lower extremity pain and swelling likely due to chronic venous insufficiency. Diagnostic tests reviewed for today's visit: Most recent labs Most recent imaging PVR 1.1 bilaterally, TBI 0.7 PLAN/RECOMMENDATIONS Recommend medical management of bilateral lower extremity venous insufficiency. Should wear 30-40 mm Hg compression stockings if unable to tolerate then 20-30 mm Hg compression stocking at all times. Patient seen with Dr. Desi Tejeda MD [facility] STAFF PHYSICIAN NOTE OF PERSONAL INVOLVEMENT IN CARE Vascular STAFF - Desi I have reviewed the documentation above obtained and documented by the Resident and have reviewed and updated the problem list as appropriate. I have personally participated in the philip component and physical exam and have discussed the case and management of the patient's care. The following comments revise or confirm relevant philip components. 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 B 30-40mmHg knee high stockings STAFF PHYSICIAN: Karolyn Weeks MD PAGER: [phone] DATE OF SERVICE: August 12, 2018 TIME OF SERVICE: 1:41 PM CNOV Observed: 08/12/2018 Status: COMPLETED Source: [place] 1:00 PM [facility] REPOSITORY Office Visit (VASSMN) DEBI FAIRCIHLD ([id number]) 1945 M Date Time Provider Department 08/12/18 1:00 PM KAROLYN WEEKS During your visit today, we recorded the following information about you: Temperature Pulse Respiration Blood pressure 99 degrees 64/minute 18/minute 158/64 Weight Height 95.3 kg 1.803 m Karolyn Weeks MD 08/12/2018 1:56 PM Signed VASCULAR SURGERY INITIAL CONSULT SERVICE DATE: 08/12/2018 SERVICE TIME: 1:21 PM PRIMARY CARE PHYSICIAN: Naomy Perez MD REFERRING PROVIDER: Naomy Perez MD [address] [address] Consult requested for an opinion regarding the evaluation and treatment of the above. My final impression and recommendations will be communicated back to the requesting physician by way of the shared medical record or letter via US mail. CHIEF COMPLAINT/HISTORY OF PRESENT ILLNESS: Chief Complaint: Bilateral leg pain and swelling History of Present Illness: Debi Fairchild is a 72 year old male presenting with bilateral lower extremity swelling and leg heaviness/discomfort. Patient's leg swelling has improved with introduction of lasix. He has reported that they the legs have progressively worsened over the last couple of years. He did have right foot ulcer which healed with compression. Patient denies claudication symptoms or cramping with walking. He does have history of TIA in past 1 year. PAST MEDICAL/SURGICAL/FAMILY/SOCIAL HISTORY PAST MEDICAL HISTORY Diagnosis Date - Anxiety - Bladder cancer (HCC) - Bladder cancer (HCC) - CAD (coronary artery disease) - Diabetes (HCC) - Diaphragmatic hernia without mention of obstruction or gangrene - Erectile dysfunction - GERD (gastroesophageal reflux disease) - Heart attack (HCC) 1992 - HTN (hypertension) - Hyperlipidemia - Kidney stones - Neuropathy (HCC) - Neuropathy (HCC) - TIA due to embolism (HCC) 08/11/2018 PAST SURGICAL HISTORY Procedure Laterality Date - EGD W/O OR W/BRUSH/WASH 05/02/2010 EGD - EGD W/O OR W/BRUSH/WASH 04/20/2016 EGD - HEART SURGERY HX 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 - IMPELLA CARDIAC ASSIST DEVICE - PAST SURGICAL HISTORY OF kidney stones removed - PAST SURGICAL HISTORY OF Bladder stones - REMOVAL GALLBLADDER 1997 FAMILY HISTORY Problem Relation Age of Onset - Heart Brother - Diabetes Brother SOCIAL HISTORYSocial History Marital status: Spouse name: Years of education: Number of children: Social History Main Topics Smoking status: Former Smoker Packs/day: 1.00 Years: 30.00 Types: Cigarettes Smokeless tobacco: Never Used Comment: quit 1992 Alcohol use: No Drug use: No MEDICATIONS/ALLERGIES Current Outpatient Prescriptions: TRESIBA FLEXTOUCH U-200 200 unit/mL (3 mL) injection once daily. Disp: Rfl: glimepiride (AMARYL) 4 mg tablet Take 4 mg by mouth daily with breakfast. Disp: Rfl: metoprolol tartrate, short acting, (LOPRESSOR) 25 mg tablet Take 25 mg by mouth twice daily. Disp: Rfl: lisinopril (PRINIVIL) 5 mg tablet Take 1 tablet by mouth once daily. (Patient taking differently: Take 40 mg by mouth once daily. ) Disp: Rfl: 0 rosuvastatin (CRESTOR) 20 mg tablet Take 1 tablet by mouth daily at bedtime. Disp: 30 tablet Rfl: 0 clopidogrel (PLAVIX) 75 mg tablet Take 1 tablet by mouth once daily. Disp: 30 tablet Rfl: 0 levothyroxine (SYNTHROID) 25 mcg tablet Take 25 mcg by mouth daily before breakfast. Disp: Rfl: ALPRAZolam (XANAX) 0.25 mg tablet Take 0.25 mg by mouth at bedtime as needed. Disp: Rfl: tamsulosin ER (FLOMAX) 0.4 mg cp24 Take 0.4 mg by mouth once daily. Disp: Rfl: ASPIRIN 81 MG TAB Take one (1) tablet daily . Disp: Rfl: 0 polyethylene glycol 3350 (MIRALAX, GLYCOLAX) 17 gram packet Take 1 Packet by mouth once daily. Disp: 10 Packet Rfl: 0 Insulin Lispro, Human, (HUMALOG KWIKPEN) 100 unit/mL inpn Please inject 28 units Before breakfast Please inject 20 units before lunch Please inject 28 units before dinner Disp: 10 Pen Rfl: 10 Insulin [place], Disposable, (DANA PEN NEEDLE) 32 gauge x 5/32 ndle 3 application four times daily. Disp: 200 Each Rfl: 3 Insulin Lispro, Human, (HUMALOG KWIKPEN) 100 unit/mL inpn Inject 0-10 Units subcutaneously w MEALS. ADMINISTER CORRECTIONAL INSULIN REGARDLESS OF MEAL OR NUTRITION INTAKEScale 2If Blood Glucose (mg/dL) is:Less than 110 Give 0 [id number] Give 0 -339 Give 2 [id number]- 250 Give 4 [id number] Give 6 [id number] Give 8 [id number] Give 10 unitsGreater than 400 Give 10 units and Notify Provider Disp: Rfl: finasteride (PROPECIA,PROSCAR) 1 mg tablet Take 1 mg by mouth once daily. Disp: Rfl: No current facility-administered medications for this visit. ALLERGIES Allergen Reactions - Ciprofloxacin Other: See Comments REVIEW OF SYSTEMS Constitutional: No weight loss, malaise or fevers. HEENT: Negative for frequent or significant headaches Respiratory: Negative for cough, wheezing, or shortness of breath Cardiovascular: Negative for chest pain and palpitations and Positive for leg swelling Gatrointestinal: Negative for abdominal discomfort, blood in stools or black stools or change in bowel habits Genitourinary: No history of dysuria, frequency, or incontinence Musculoskeletal: Negative for back pain and Positive for joint pain Endocrine: Negative for cold or heat intolerance, polyuria, polydipsia and goiter Hematology/Lymphatic: Negative for prolonged bleeding, bruising easily or swollen nodes Neurologic: No history or headaches, syncope, paralysis, seizures or tremors Integumentary: Negative for itching and Positive for chronic venous changes in BLE PHYSICAL EXAM VITALS: BP 158/64 Pulse 64 Temp (Src) 99 (Temporal Artery) Resp 18 Ht 5' 11 (1.80m) Wt 210 lb (95.3kg) SpO2 94% BMI 29.30 kg/(m2). General: Alert and oriented, No acute distress Integumentary: Normal color, no rash, no lesions. HEENT: EOM, pupils equal, round and reactive. Cardiovascular: Normal S1 AND S2, no rubs, murmurs or gallops. No JVD., Pulse regular. Lungs: Normal breath sounds, no wheezes or crackles. Abdomen: Soft, non-tender, no rigidity. Extremities: Varicose veins Vascular insufficiency findings. Some chronic skin changes in BLE. Healed right foot ulceration. Neurological: Normal cognition and motor skills. Vascular: Carotid Pulse Right: Normal - Left: Normal Brachial Pulse Right: Normal - Left: Normal Radial Pulse Right: Normal - Left: Normal Femoral Pulse Right: Normal - Left: Normal Popliteal Pulse Right: Normal - Left: Normal Posterior Tibial Right: Normal - Left: Normal Dorsalis Pedal Right: Normal - Left: Normal ASSESSMENT 72 yo M seen for bilateral lower extremity pain and swelling likely due to chronic venous insufficiency. Diagnostic tests reviewed for today's visit: Most recent labs Most recent imaging PVR 1.1 bilaterally, TBI 0.7 PLAN/RECOMMENDATIONS Recommend medical management of bilateral lower extremity venous insufficiency. Should wear 30-40 mm Hg compression stockings if unable to tolerate then 20-30 mm Hg compression stocking at all times. Patient seen with Dr. Desi Tejeda MD [facility] STAFF PHYSICIAN NOTE OF PERSONAL INVOLVEMENT IN CARE Vascular STAFF - Desi I have reviewed the documentation above obtained and documented by the Resident and have reviewed and updated the problem list as appropriate. I have personally participated in the philip component and physical exam and have discussed the case and management of the patient's care. The following comments revise or confirm relevant philip components. 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 B 30-40mmHg knee high stockings STAFF PHYSICIAN: Karolyn Weeks MD PAGER: [phone] DATE OF SERVICE: August 12, 2018 TIME OF SERVICE: 1:41 PM Referring Provider: NAOMY PEREZ CHI [[id number]] Allergies As of Date: 08/12/2018 Noted Allergy Reaction CIPROFLOXACIN 04/21/2016 14 - Other: See Comments Date Reviewed: 08/12/2018 Reviewed by: Raúl An Ma - Fully Assessed Reason for Visit: New Patient Evaluation [154] Primary Visit Diagnosis:Type 2 diabetes mellitus with complication, with long-term current use of insulin (HCC) [E11.8, Z79.4] Other Visit Diagnoses:Mixed hyperlipidemia [E78.2] Essential hypertension [I10] Atherosclerosis of coronary artery bypass graft of barrow heart without angina pectoris [I25.810] Gastroesophageal reflux disease without esophagitis [K21.9] TIA due to embolism (HCC) [G45.9, I74.9] Neuropathy (HCC) [G62.9] Coronary artery disease involving barrow heart without angina pectoris, unspecified vessel or lesion type [I25.10] Chronic venous insufficiency [I87.2] Prescriptions as of 08/12/2018 Sig: TRESIBA FLEXTOUCH U-200 INSUL* once daily. GLIMEPIRIDE 4 MG TABLET Take 4 mg by mouth daily with* METOPROLOL TARTRATE 25 MG TAB* Take 25 mg by mouth twice geovany* LISINOPRIL 5 MG TABLET Take 1 tablet by mouth once d* Patient taking differently: Take 40 mg by mouth once rebecca* ROSUVASTATIN 20 MG TABLET Take 1 tablet by mouth daily * CLOPIDOGREL 75 MG TABLET Take 1 tablet by mouth once d* LEVOTHYROXINE 25 MCG TABLET Take 25 mcg by mouth daily be* ALPRAZOLAM 0.25 MG TABLET Take 0.25 mg by mouth at bedt* TAMSULOSIN 0.4 MG CAPSULE Take 0.4 mg by mouth once geovany* ASPIRIN 81 MG TABLET Take one (1) tablet daily . POLYETHYLENE GLYCOL 3350 17 G* Take 1 Packet by mouth once d* INSULIN LISPRO (U-100) 100 UN* Please inject 28 units Before* PEN NEEDLE, DIABETIC 32 GAUGE* 3 application four times rebecca* INSULIN LISPRO (U-100) 100 UN* Inject 0-10 Units subcutaneou* FINASTERIDE 1 MG TABLET Take 1 mg by mouth once daily. Medication notes this encounter LISINOPRIL 5 MG TABLET >> Raúl An Ma 08/12/2018 12:55 PM >> RAÚL AN MA Aug 12, 2018 12:55 PM Problem List As Of Date 08/12/2018 Noted Resolved Type 2 diabetes mellitus with complication, wit*INVALID FOR* Priority: B More... Coronary atherosclerosis [I25.10] INVALID FOR* Priority: G More... HYPERLIPIDEMIA NEC/NOS [E78.5] INVALID FOR* Esophageal reflux [K21.9] INVALID FOR* Priority: E More... Acute Gastritis without Mention of Hemorrhage [*INVALID FOR* Diaphragmatic hernia without mention of obstruc*INVALID FOR* Priority: F More... Plantar fascial fibromatosis [M72.2] INVALID FOR* DM neuro manif type II [E11.49] INVALID FOR* Unstable angina (HCC) [I20.0] INVALID FOR* Priority: A More... HTN (hypertension) [I10] INVALID FOR* Priority: D More... Hyperlipidemia [E78.5] INVALID FOR* Priority: C More... Diabetic ketoacidosis without coma associated w*INVALID FOR*04/29/2016 More... Preoperative testing [Z01.818] INVALID FOR* More... S/P CABG x 4 [Z95.1] INVALID FOR* Failed CABG (coronary artery bypass graft) [T82*INVALID FOR* S/P drug eluting coronary stent placement [Z95.*INVALID FOR* Presence of drug coated stent in left circumfle*INVALID FOR* TIA due to embolism (HCC) [G45.9, I74.9] INVALID FOR* Neuropathy (HCC) [G62.9] CAD (coronary artery disease) [I25.10] Chronic venous insufficiency [I87.2] INVALID FOR* Encounter Status:Closed by KAROLYN WEEKS MD on 08/12/18 CNCO Observed: 08/12/2018 Status: COMPLETED Source: [place] 12:00 AM [facility] REPOSITORY HNO ID: [id number] Author: Karolyn Weeks Service: Vascular Surgery Author Type: Physician Type: Letter Filed: 08/15/2018 11:32 AM Note Text: Karolyn Weeks MD Interchange Agent Department of Vascular Surgery [address] [place] [address] Office: [phone] Appointments: [facility]/ [phone] Fax: [phone] August 12, 2018 Naomy Perez M.D. [address] [place] [address]/[place] [phone] NAME: DEBI FAIRCHILD [facility] NO: [id number] : 1945 DATE OF SERVICE: 08/12/[address] Perez: I had the pleasure of seeing Mr. Fairchild for his chronic venous insufficiency in both legs. At this point in time, he should be in 30-40 mm knee-high compression stockings. I gave him the website that I use, [email or web address]. We will continue to see him on an as- needed basis. Sincerely, Karolyn Weeks M.D. (Signed electronically to expedite mailing) CARLOS A/maricel SPL/089 Audio #: [id number] Date Dictated: 08/12/2018 13:28:56 Date Typed: 08/13/2018 11:58:03 Date Revised: PROGRESS Observed: 08/12/2018 Status: COMPLETED Source: [place] 12:00 AM [facility] REPOSITORY HNO ID: [id number] Author: Karolyn Weeks Service: Vascular Surgery Author Type: Physician Type: Progress Notes Filed: 08/14/2018 1:13 PM Note Text: NAME: DEBI FAIRCHILD [facility]IN[facility] NO: [id number] DATE OF SERVICE: 08/12/2018 DATE OF : 1945 He is here to see me for lower extremity leg wounds. I have reviewed his history and confirmed the note from the resident. He has classic changes in both calves for gator distribution lipodermatosclerosis and hemosiderin deposition without ulceration for chronic venous insufficiency. On 07/10/2018, he had a venous incompetency study that showed that the deep veins were patent and compressible. There were no DVTs on either side. His proximal deep venous system had competence. His right saphenofemoral junction was incompetent, but there his greater saphenous vein below the knee has been harvested. It was patent and competent on the right side below the knee. The left greater saphenous vein was patent and competent. His small saphenous veins did not have some incompetence and had chronic vein wall thickening with an incompetent timber sprinkler in his right calf. He had ABIs that were normal bilaterally. Physical Examination: His pulses are palpable. He does have a GFR that is slightly diminished at 48. His creatinine is 1.5. His CBC is otherwise normal. Impression: Chronic venous insufficiency without ulceration. Plan: 30-40 mm knee-high compression stockings. Currently, I do not see any role for treatment of the lesser saphenous system since his changes are all in the greater saphenous system, which have both been harvested on the right side and are incompetent on the left side. He can follow up with me on an as-needed basis. Karolyn Weeks M.D. SPL/089 Audio #: [id number] Date Dictated: 08/12/2018 13:28:56 Date Typed: 08/13/2018 11:51:51 Date Revised: BASIC METABOLIC Collected: 07/17/2018 Status: F Source: [place] PROFILE (BMP) 3:11 PM [facility] REPOSITORY TYPE CODE TESTS RESULT OUT OF RANGE REFERENCE UNITS LAB L501.0100 74-106 mg/dL High GLU 392 Result Comment: Glucose result greater than or equal to 200 mg/dL suggests DIABETES MELLITUS per A.D.A. criteria. Please note revised GLUCOSE reference range effective 2017. LAB L501.1000 7-18 mg/dL High BUN 30 LAB L501.1100 0.70-1.30 mg/dL High CREAT,SERUM 1.51 Result Comment: The validity of the calculated GFR AND GFRAA in patients over 70 years has not been determined. Clinical correlation is essential. LAB L501.1110 >60 mL/min Low EST GFR 48 Result Comment: Non- GFR Calc LAB L501.1115 >60 mL/min Low EST GFR - AA 58 Result Comment: GFR Calc LAB L501.1300 10-20 RATIO Normal BUN/CRE 19.9 LAB L501.2200 8.5-10.1 mg/dL CA Normal 8.8 LAB L501.5300 136-145 mmol/L NA Normal 138 LAB L501.5600 3.5-5.1 mmol/L K Normal 4.7 LAB L501.5900 98-107 mmol/L CL Normal 103 LAB L501.6100 21.0-32.0 mmol/L Normal CO2 27.0 LAB L501.6200 5-15 Normal GAP 8 Performed By: #### L500.2500 #### [facility] [address] [place] [address]. [place], [address] CBC W/DIFF, AUTOMATED Collected: 07/17/2018 Status: F Source: [place] 3:11 PM [facility] REPOSITORY TYPE CODE TESTS RESULT OUT OF RANGE REFERENCE UNITS LAB L100.1000 4.4-11.0 K/mm3 Normal WBC 5.0 LAB L100.1200 4.6-6.2 M/mm3 Low RBC 3.98 LAB L100.1300 13.0-16.5 g/dl Low HGB 11.0 LAB L100.1400 40-54 % Low HCT 35.1 LAB L100.1500 80-94 fL Normal MCV 88.2 LAB L100.1600 27.0-32.0 pg Normal MCH 27.6 LAB L100.1700 32-36 g/gl Low MCHC 31.3 LAB L100.1810 11.6-14.6 % High RDW CV 15.0 LAB L100.1820 35.1-43.9 fl High RDW SD 48.5 LAB L100.1900 150-450 K/mm3 Normal PLT 193 LAB L100.2000 6.2-12.0 fl Normal MPV 9.9 LAB L100.2100 47-70 % Normal NEUT% 56.2 LAB L100.2200 19-41 % Normal LY% 31.9 LAB L100.2300 0-10 % Normal MONO% 7.9 LAB L100.2400 0-5 % Normal EO% 2.6 LAB L100.2500 0-1 % High BASO% 1.4 LAB L100.2550 0.0-0.9 % Normal IM GRAN % 0.000 Result Comment: IG% - Immature Granulocytes (promyelocytes, myelocytes and metamyelocytes) > 1% indicates that a LEFT SHIFT is Present. LAB L100.2620 2.0-7.7 X10 3/uL Normal Absolute Neut 2.8 LAB L100.2720 0.83-4.51 X10 3/ul Normal Absolute Lymph 1.61 Performed By: #### L100.0100 #### [facility] [address] [facility] [place], [address] LOWER EXT ARTERIAL Observed: 07/14/2018 Status: F Source: [facility] 3:43 PM [facility] REPOSITORY [facility] Cardiovascular Services [address] [place] [address] 07/14/18 1534 MR#: [id number] Acct: [id number] Name: DEBI FAIRCHILD Rep #: [id number] : 1945 72 From: Xavier Lincoln MD Attending Dr: Christiano Marino MD Status: REG RCR Ordering Dr: Date: 07/14/18 Location: [facility] Sex: M C Admitted: Arterial Study - Arterial Study Arterial Study: This is a 72-year-old male with a lower extremity wound and suspicion of peripheral arterial occlusive disease. He is brought to the noninvasive vascular laboratory at this time for the purpose of bilateral noninvasive lower extremity arterial assessment. Doppler signal assessment was used to evaluate the pulses at ankle level bilaterally. On the right, the posterior tibial pulse was biphasic. The right dorsalis pedis pulse was monophasic. The left posterior tibial and dorsalis pedis pulses were biphasic. Segmental limb pressures were obtained bilaterally. The right ankle pressure, as determined by posterior tibial pulse, was measured at 177 mmHg. The right ankle pressure, as determined by dorsalis pedis pulse, was measured at 167 mmHg. The right digital pressure was measured at 121 mmHg. The left ankle pressure, as determined by posterior tibial pulse, was measured at 187 mmHg. The left ankle pressure, as determined by dorsalis pedis pulse, was measured at 169 mmHg. The left digital pressure was measured at 124 mmHg. Pulse-volume recordings were obtained bilaterally and segmentally. Waveform amplitudes appeared to be satisfactory at low thigh, calf, and ankle levels bilaterally. Waveform amplitude at digital level in the left lower extremity was diminished. Resting ankle-brachial indices were calculated bilaterally. The resting right ankle-brachial index was calculated to be 1.11. The resting left ankle-brachial index was calculated to be 1.18. Digital-brachial indices were calculated bilaterally. The right digital-brachial index was calculated to be 0.76. The left digital-brachial index was calculated to be 0.78. Impression: Based upon the findings of this resting noninvasive lower extremity arterial study, there is no evidence of significant arterial occlusive disease in the lower extremities bilaterally. Resting ankle-brachial indices are bilaterally normal. Digital-brachial indices are also bilaterally normal. Doppler signal assessment is suspicious for possible occlusive disease, as is the pulse-volume recording relative to the digital vasculature in the left lower extremity. Mild occlusive disease may be present, warranting clinical correlation. However, the findings of this resting study do not definitively identify significant occlusive disease. 07/14/18 1543 <Electronically signed by Xavier Lincoln MD> Date Xavier Lincoln MD CC: Christiano Marino MD; Naomy Perez MD Date Dictated: 07/14/184 Date Transcribed: 07/14/18 153 Leave Manager: VICKY Signed VENOUS DUPLEX LOWER Observed: 07/11/2018 Status: F Source: [place] EXTREMITY 5:56 PM [facility] REPOSITORY [facility] Cardiovascular Services [address] [place] [address] Venous Duplex US - Adan Extrem 07/10/18 0758 MR#: [id number] Acct: [id number] Name: DEBI FAIRCHILD Rep #: [id number] : 1945 72 From: Xavier Lincoln MD Attending Dr: Christiano Marino MD Status: REG RCR Ordering Dr: Christiano Marino MD Date: 07/10/18 Location: [facility] Sex: M C Admitted: Reason For Study: ULCER RIGHT LEFT CFV is compressible, spontaneous, phasic, CFV is compressible, spontaneous, phasic, competent and demonstrates normal competent, and demonstrates normal augmentation. augmentation. FV is compressible, spontaneous, phasic, FV is compressible, spontaneous, phasic, competent and demonstrates normal competent and demonstrates normal augmentation. augmentation. POP V is compressible, spontaneous, phasic, POP V is compressible, spontaneous, phasic, competent and demonstrates normal competent and demonstrates normal augmentation. augmentation. T/P Trunk is compressible. T/P Trunk is compressible. PTV is compressible. PTV is compressible. RT PerV is compressible. LT PerV is compressible. RT GSV at SFJ is compressible and Left GSV is compressible and competent INCOMPETENT for greater than 5 sec. throughout. RT GSV above knee has been harvested for LEFT SSV is compressible and thick walled. CABG. Left SSV measures .5 x .5 cm and is RT GSV below knee is compressible and INCOMPETENT for greater than .5 seconds. competent. RT SSV is compressible and thick walled. RT SSV measures .3 x .3 cm and is INCOMPETENT for greater than .5 seconds. RT Power Tool Repair Technician located 28 cm above the medial maleolus is INCOMPETENT for greater than .5 seconds. Interpretation Summary Deep veins of the lower extremities are bilaterally patent and compressible segmentally. There is no evidence of deep vein thrombosis on either side. Valvular competence appears intact within the proximal deep venous systems bilaterally. The right sapheno- femoral junction is incompetent . The right greater saphenous vein has been harvested above the knee, and is patent and competent below the knee. The left greater saphenous vein is patent and competent. Small saphenous veins are incompetent bilaterally, and demonstrate chronic vein wall thickening. An incompetent timber sprinkler vein is noted in the right calf, located 28 centimeters proximal to the right medial malleolus. Ordering Physician: Christiano Marino Referring Physician: NAOMY PEREZ CHI Performed By: Alecia Sage, RDCS, RVT 07/11/181755 Date Xavier Lincoln MD CC: Christiano Marino MD; Naomy Perez MD Date Dictated: 07/10/18 0758 Date Transcribed: 07/11/181755 Leave Manager: Signed WOUND CTR HISTORY Observed: 06/21/2018 Status: F Source: [facility] 11:56 AM [facility] REPOSITORY [facility] [address] [place] [address] Wound Ctr History AND Physical 06/19/18 1318 MR#: [id number] Acct: [id number] Name: DEBI FAIRCHILD Rep #: [id number] : 1945 72 From: Christiano Marino MD PCP: Naomy Perez MD, Chi Status: REG RCR Y Location: (1) Bilateral lower extremity edema Status: Acute Current Visit: Yes Code(s): R60.0 - Localized edema (2) Ulcer of right lower extremity Status: Acute Current Visit: Yes Code(s): L97.919 - Non- pressure chronic ulcer of unspecified part of right lower leg with unspecified severity (3) CAD (coronary artery disease) Status: Chronic Current Visit: No Code(s): I25.10 - Atherosclerotic heart disease of barrow coronary artery without angina pectoris (4) Diabetes Status: Chronic Current Visit: No Code(s): E11.9 - Type 2 diabetes mellitus without complications History of Present Illness Date of Service: 06/19/18 Chief Complaint: Right Lower Extremity Ulcer. History of Wound: Mr. Fairchild is a 72-year-old with past medical history as stated above who presented to the wound center due to right lower extremity ulcer. He reports worsening bilateral lower extremity swelling which was noted about a month ago subsequently about a week ago noted right lower extremity ulcer. Denies any history of trauma. He has tried some home care without any significant relief. Bilateral lower extremity swelling also appears to have persisted despite diuretic management. He feels well otherwise and denies chills, fever but does note shortness of breath he has an extensive cardiac history and status post stenting. Past Medical History Past Medical History: Chronic Problems Diabetes (Chronic) Hypertension (Chronic) CAD (coronary artery disease) (Chronic) Allergies/Adverse Reactions: Allergies ciprofloxacin HCl [From Cipro] Adverse Reaction (Verified 11/24/16 21:59) Pain in joints Home Medications: Ambulatory Orders Medication Instructions Recorded Levothyroxine [Synthroid] 25 mcg PO DAILY 09/09/13 Metoprolol Tartrate [Lopressor 25 mg PO BID 09/09/13 (beta gary)] - Family History Paternal Diabetes Maternal Heart Disease Smoking Status: Former smoker Review of Systems Constitutional: Denies: Anorexia, Chills, Fever, Malaise, Weakness HEENT: Denies: Difficulty Swallowing Cardiovascular: Denies: Chest Pain, Syncope Respiratory: Denies: Cough, Shortness of Breath, Wheezing Gastrointestinal: Denies: Abdominal Pain, Hematemesis, Vomiting Genitourinary: Denies: Hematuria - Physical Exam Vital Signs Temp Pulse Resp BP 98.4 F 61 16 129/63 H 06/19/18 11:55 06/19/18 11:55 06/19/18 11:55 06/19/18 11:55 General: Alert, Oriented x3, Cooperative, No apparent distress HEENT: Atraumatic Oral: Moist Mucosa Neck: Supple Lungs: Normal air movement Cardiovascular: Regular rate, Regular Rhythm Abdomen: Soft, Non Tender Extremities: No cyanosis, Edema Skin: Ulcer/ Wound Wound Measurements and Assessment - Nurse 1 - General Ulcer Measurement Start: 06/19/18 11:55 Freq: Status: Active Protocol: Activity Type Activity Date Activity User E-Sign Co-Sign Detail Recorded Client Recorded Date Recorded By Document 06/19/18 11:55 ROSINA [id number] 06/19/18 12:16 ROSINA CHISHOLM - Nurse 2 - General Ulcer CM Notes Start: 06/19/18 11:55 Freq: Status: Active Protocol: Activity Type Activity Date Activity User E-Sign Co-Sign Detail Recorded Client Recorded Date Recorded By Document 06/19/18 12:24 MW [id number] 06/19/18 12:30 MW Musculoskeletal: No Muscle Wasting Neurological: Cranial nerves II-XII grossly intact Psych/Mental Status: Normal Affect Debridement Note Post-Debridement Measurements/Treatment WC - Nurse 2 - General Ulcer CM Notes Start: 06/19/18 11:55 Freq: Status: Active Protocol: Activity Type Activity Date Activity User E-Sign Co-Sign Detail Recorded Client Recorded Date Recorded By Document 06/19/18 12:24 MW [id number] 06/19/18 12:30 MW Wound Center Nurse 2 #1 RLE leg -Time 12:25 -Correct Patient Yes -Correct Side, Site, Position Yes Wound debrided: Right lower extremity ulcer Wound Grade/Stage: Saxena I Type of Debridement: Excisional debridement Anesthesia Used: 4% Lidocaine Solution Depth: Down to and including healthy tissue, in the subcutaneous layer Percentage of wound debrided: 100 Instrument Used: 3mm curette Tissue Removed: Slough and devitalized tissue Severity: Fat Layer Exposed Amount of bleeding with debridement: Mild Bleeding Controlled with: Pressure Patient tolerated procedure well Assessment/Plan Active Problems Bilateral lower extremity edema (Acute) Ulcer of right lower extremity (Acute) Assessment: Right lower extremity ulcer with fat layer exposed. Bilateral lower extremity swelling. Diabetes Mellitus. Possible PAD in a patient with CAD. Plan: Debridement done as documented above. Procedure was well-tolerated. Aquacel extra to open ulcers with Xeroform over area of erythema. Change daily. Single layer Tubigrip for now for edema management. Patient advised to elevate lower extremities when seated and in bed. Also advised him compliance with diuretic management. 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 Vascular and venous studies ordered. Will get other labs from the [facility]. Increase protein intake recommended. Optimal blood glucose control. Advised to follow-up with his PCP for continued management of his sugars. Follow-up in 1 week. He was advised to call with any questions or concerns. This note was generated with TM3 Softwareation software. It may contain incorrect words, spelling, and punctuation that were not noted in checking the note before signing. 06/21/18 1156 <Electronically signed by Christiano Marino MD> Date Christiano Marino MD CC: Signed KIDNEY AND BLADDER Observed: 06/19/2018 Status: F Source: [place] 10:13 AM [facility] REPOSITORY [facility] Imaging Services [address] [place] [address] Kidney and Bladder MR#: [id number] Acct: [id number] Name: DEBI FAIRCHILD Rep #: [id number] : 1945 M 72 From: Clarke Rai MD PCP: Ana HRAE,Naomy Negro Status: REG CLI Study: Kidney and Bladder Date of Exam: 06/19/18 Exam# [id number] Ordering Dr: Adam Stanley MD STUDY: RENAL ULTRASOUND - COMPLETE REASON FOR EXAM: Male, 72 years old. Hematuria. Renal stones. TECHNIQUE: Ultrasound evaluation of the kidneys was performed with real-time and static lara-scale imaging. COMPARISON: 09/08/2016. FINDINGS: RIGHT KIDNEY: Normal location of the right kidney, which is normal in size. The right kidney measures 11.7 x 4.7 x 6.3 cm. There is focal scarring of the renal cortex. The renal cortex measures 1.5 cm. There is no right renal mass or cyst. There are no right renal calculi. There is no right hydronephrosis. DISTAL RIGHT URETER: There is non-visualization of the distal right ureter. There is no demonstrated right ureterovesical junction calculus. There is a visualized right ureteral jet. LEFT KIDNEY: Normal location of the left kidney, which is normal in size. The left kidney measures 12.4 x 4.8 x 5.4 cm. There is focal scarring of the renal cortex. The renal cortex measures 1.7 cm. There is a 1.5 cm cyst. There is a 4 mm nonobstructing stone. There is no left hydronephrosis. DISTAL LEFT URETER: There is non-visualization of the distal left ureter. There is no demonstrated left ureterovesical junction calculus. There is a visualized left ureteral jet. BLADDER: The distended urinary bladder has a volume of 277 ml. The empty urinary bladder has a volume of 75 ml. There is a normal wall thickness of the distended urinary bladder. Probable debris in the bladder. There is no demonstrated mass within the urinary bladder. There are no demonstrated bladder calculi. US/Kidney and Bladder IMPRESSION: No acute abnormality of the kidneys. 4 mm nonobstructing stone of the left kidney. Small to moderate post void residual. Debris in the bladder, which can be seen in cystitis. Electronically Signed: Clarke Rai MD at 18:23 EDT , Service support , CC: Adam Stanley MD; Naomy Perez MD Leave Manager: Signed Observed: 06/14/2018 Status: F Source: [place] CULTURE, URINE 11:46 AM [facility] REPOSITORY Urine Culture Culture exhibits no growth. Performed By: #### M100.0650 #### [facility] [place], [address] BASIC METABOLIC Collected: 06/14/2018 Status: F Source: [place] PROFILE (BMP) 11:31 AM [facility] REPOSITORY TYPE CODE TESTS RESULT OUT OF RANGE REFERENCE UNITS LAB L501.0100 74-106 mg/dL High GLU 276 Result Comment: Glucose result greater than or equal to 200 mg/dL suggests DIABETES MELLITUS per A.D.A. criteria. Please note revised GLUCOSE reference range effective 2017. LAB L501.1000 7-18 mg/dL High BUN 27 LAB L501.1100 0.70-1.30 mg/dL High CREAT,SERUM 1.47 Result Comment: The validity of the calculated GFR AND GFRAA in patients over 70 years has not been determined. Clinical correlation is essential. LAB L501.1110 >60 mL/min Low EST GFR 50 Result Comment: Non- GFR Calc LAB L501.1115 >60 mL/min Normal EST GFR - AA 60 Result Comment: GFR Calc LAB L501.1300 10-20 RATIO Normal BUN/CRE 18.4 LAB L501.2200 8.5-10.1 mg/dL CA Normal 8.8 LAB L501.5300 136-145 mmol/L NA Normal 138 LAB L501.5600 3.5-5.1 mmol/L K Normal 4.5 LAB L501.5900 98-107 mmol/L CL Normal 102 LAB L501.6100 21.0-32.0 mmol/L Normal CO2 30.0 LAB L501.6200 5-15 Normal GAP 6 Performed By: #### L500.2500 #### [facility] [address] [place], [address] MRSA WOUND DNA BY Collected: 06/07/2018 Status: F Source: [place] PCR 12:03 PM [facility] REPOSITORY Order Comment: Comments: RIGHT ANTERIOR LEG Specimen Source? RIGHT ANTERIOR LEG TYPE CODE TESTS RESULT OUT OF RANGE REFERENCE UNITS LAB L8200.1100 Negative Normal MRSA Negative RESULT LAB L8200.1150 Negative Normal SA RESULT NEGATIVE Performed By: #### L8200.1075 #### [facility] [address] [facility] [place], [place], [address] Observed: 06/07/2018 Status: F Source: [place] CULTURE, WOUND 12:03 PM [facility] REPOSITORY Comments: RIGHT ANTERIOR LEG Gram Stain Gram Stain No organisms seen No cells seen Wound Culture Possible skin contamination, further Identification and sensitivity will be performed only by physician's request. ORGANISM 1: Coag Negative Staph Amount Growth 1+ Performed By: #### M100.1400 #### [facility] [address] [place], [address] CBC W/DIFF, AUTOMATED Collected: 06/07/2018 Status: F Source: [place] 9:55 AM [facility] REPOSITORY TYPE CODE TESTS RESULT OUT OF RANGE REFERENCE UNITS LAB L100.1000 4.4-11.0 K/mm3 Normal WBC 4.9 LAB L100.1200 4.6-6.2 M/mm3 Low RBC 3.71 LAB L100.1300 13.0-16.5 g/dl Low HGB 10.6 LAB L100.1400 40-54 % Low HCT 32.9 LAB L100.1500 80-94 fL Normal MCV 88.7 LAB L100.1600 27.0-32.0 pg Normal MCH 28.6 LAB L100.1700 32-36 g/gl Normal MCHC 32.2 LAB L100.1810 11.6-14.6 % Normal RDW CV 13.8 LAB L100.1820 35.1-43.9 fl Normal RDW SD 43.0 LAB L100.1900 150-450 K/mm3 Normal PLT 192 LAB L100.2000 6.2-12.0 fl Normal MPV 10.0 LAB L100.2100 47-70 % Normal NEUT% 50.3 LAB L100.2200 19-41 % Normal LY% 35.2 LAB L100.2300 0-10 % High MONO% 10.2 LAB L100.2400 0-5 % Normal EO% 3.5 LAB L100.2500 0-1 % Normal BASO% 0.8 LAB L100.2550 0.0-0.9 % Normal IM GRAN % 0.000 Result Comment: IG% - Immature Granulocytes (promyelocytes, myelocytes and metamyelocytes) > 1% indicates that a LEFT SHIFT is Present. LAB L100.2620 2.0-7.7 X10 3/uL Normal Absolute Neut 2.5 LAB L100.2720 0.83-4.51 X10 3/ul Normal Absolute Lymph 1.72 Performed By: #### L100.0100 #### [facility] [address] [place], [place], [address] VITAMIN D,25 HYDROXY Collected: 06/07/2018 Status: F Source: [place] 9:55 AM [facility] REPOSITORY TYPE CODE TESTS RESULT OUT OF REFERENCE UNITS RANGE LAB L506.1000 29.95-100.01 ng/mL Low Vitamin D 26.9 25-OH Result Comment: Vitamin D 25(OH) Status Range Deficiency <20 ng/mL (50nmol/L) Insuffciency 20 - 30 ng/mL (50 - 75 nmol/L) Sufficiency 30 - 100 ng/mL (75 - 250 nmol/L) Toxicity >100 ng/mL (>250 nmol/L) Performed By: #### L506.1000, L509.3000 #### [facility] [address] [place], [address] TESTOSTERONE, SERUM TOTAL Collected: 06/07/2018 Status: F Source: [place] 9:55 AM [facility] REPOSITORY TYPE CODE TESTS RESULT OUT OF REFERENCE UNITS RANGE LAB L509.3000 ng/dL Testosterone Normal 356.84 Result Comment: NORMAL REFERENCE RANGES MALE AGE <50 123.06 - 813.86 ng/dL MALE AGE >50 89.98 - 780.10 ng/dL FEMALE PREMENOPAUSE AGE 21 - 60 9.01 - 47.94 ng/dL FEMALE POSTMENOPAUSE AGE 45 - 89 <7.00 - 45.62 ng/dL REFERENCE RANGE AND METHODOLOGY CHANGED 10/10/2017 Performed By: #### L506.1000, L509.3000 #### [facility] [address] [place], [address] COMPREHENSIVE METABOLIC Collected: 06/07/2018 Status: F Source: [place] [facility] 9:55 AM [facility] REPOSITORY Order Comment: Comments: RIGHT ANTERIOR LEG TYPE CODE TESTS RESULT OUT OF RANGE REFERENCE UNITS LAB L501.0100 74-106 mg/dL High GLU 140 Result Comment: Fasting Glucose result greater than or equal to 126 mg/dL suggests DIABETES MELLITUS per A.D.A. criteria. Please note revised GLUCOSE reference range effective 2017. LAB L501.1000 7-18 mg/dL High BUN 28 LAB L501.1100 0.70-1.30 mg/dL High CREAT,SERUM 1.41 Result Comment: The validity of the calculated GFR AND GFRAA in patients over 70 years has not been determined. Clinical correlation is essential. LAB L501.1110 >60 mL/min Low EST GFR 52 Result Comment: Non- GFR Calc LAB L501.1115 >60 mL/min Normal EST GFR - AA 63 Result Comment: GFR Calc LAB L501.1300 10-20 RATIO Normal BUN/CRE 19.9 LAB L501.1500 6.4-8.2 g/dL T Normal PROT 6.7 LAB L501.1800 3.2-5.0 g/dL Normal ALB 3.4 LAB L501.1950 2.2-4.2 g/dL Normal GLOB 3.3 LAB L501.2000 0.9-2.4 RATIO Normal A/G 1.0 LAB L501.2200 8.5-10.1 mg/dL CA Normal 8.5 LAB L501.4100 15-37 U/L Normal AST 19 LAB L501.4305 45-117 U/L Normal ALK P 55 LAB L501.4405 16-61 U/L Normal ALT 24 LAB L501.4600 0.20-1.00 mg/dL T Normal BILI 0.60 LAB L501.5300 136-145 mmol/L NA Normal 142 LAB L501.5600 3.5-5.1 mmol/L K Normal 4.0 LAB L501.5900 98-107 mmol/L CL Normal 107 LAB L501.6100 21.0-32.0 mmol/L Normal CO2 28.0 LAB L501.6200 5-15 Normal GAP 7 Performed By: #### L500.4050, L501.9520 #### [facility] [address] [place], [address] THYROID STIM HORMONE Collected: 06/07/2018 Status: F Source: [place] (TSH) 9:55 AM [facility] REPOSITORY Order Comment: Comments: RIGHT ANTERIOR LEG TYPE CODE TESTS RESULT OUT OF RANGE REFERENCE UNITS LAB L501.9520 0.358-3.74 uIU/mL Normal TSH 2.41 Performed By: #### L500.4050, L501.9520 #### [facility] [address] [place], [address] CBC W/DIFF, AUTOMATED Collected: 03/01/2018 Status: F Source: [place] 9:20 AM [facility] REPOSITORY TYPE CODE TESTS RESULT OUT OF RANGE REFERENCE UNITS LAB L100.1000 4.4-11.0 K/mm3 Normal WBC 5.3 LAB L100.1200 4.6-6.2 M/mm3 Low RBC 3.64 LAB L100.1300 13.0-16.5 g/dl Low HGB 11.4 LAB L100.1400 40-54 % Low HCT 33.4 LAB L100.1500 80-94 fL Normal MCV 91.8 LAB L100.1600 27.0-32.0 pg Normal MCH 31.3 LAB L100.1700 32-36 g/gl Normal MCHC 34.1 LAB L100.1810 11.6-14.6 % Normal RDW CV 13.7 LAB L100.1820 35.1-43.9 fl High RDW SD 45.2 LAB L100.1900 150-450 K/mm3 Normal PLT 196 LAB L100.2000 6.2-12.0 fl Normal MPV 9.4 LAB L100.2100 47-70 % Low NEUT% 45.0 LAB L100.2200 19-41 % High LY% 41.6 LAB L100.2300 0-10 % High MONO% 10.4 LAB L100.2400 0-5 % Normal EO% 1.7 LAB L100.2500 0-1 % High BASO% 1.1 LAB L100.2550 0.0-0.9 % Normal IM GRAN % 0.200 Result Comment: IG% - Immature Granulocytes (promyelocytes, myelocytes and metamyelocytes) > 1% indicates that a LEFT SHIFT is Present. LAB L100.2620 2.0-7.7 X10 3/uL Normal Absolute Neut 2.4 LAB L100.2720 0.83-4.51 X10 3/ul Normal Absolute Lymph 2.20 Performed By: #### L100.0100 #### [facility] [address] [place], [address] COMPREHENSIVE METABOLIC Collected: 03/01/2018 Status: F Source: [facility] 9:20 AM [facility] REPOSITORY TYPE CODE TESTS RESULT OUT OF RANGE REFERENCE UNITS LAB L501.0100 74-106 mg/dL High GLU 196 Result Comment: Fasting Glucose result greater than or equal to 126 mg/dL suggests DIABETES MELLITUS per A.D.A. criteria. Please note revised GLUCOSE reference range effective 2017. LAB L501.1000 7-18 mg/dL High BUN 31 LAB L501.1100 0.70-1.30 mg/dL Normal CREAT,SERUM 1.29 Result Comment: The validity of the calculated GFR AND GFRAA in patients over 70 years has not been determined. Clinical correlation is essential. LAB L501.1110 >60 mL/min Low EST GFR 58 Result Comment: Non- GFR Calc LAB L501.1115 >60 mL/min Normal EST GFR - AA 70 Result Comment: GFR Calc LAB L501.1300 10-20 RATIO High BUN/CRE 24.0 LAB L501.1500 6.4-8.2 g/dL T Normal PROT 6.7 LAB L501.1800 3.2-5.0 g/dL Normal ALB 3.4 LAB L501.1950 2.2-4.2 g/dL Normal GLOB 3.3 LAB L501.2000 0.9-2.4 RATIO Normal A/G 1.0 LAB L501.2200 8.5-10.1 mg/dL Low CA 8.4 LAB L501.4100 15-37 U/L Normal AST 17 LAB L501.4305 45-117 U/L Normal ALK P 53 LAB L501.4405 16-61 U/L Normal ALT 23 LAB L501.4600 0.20-1.00 mg/dL T Normal BILI 0.70 LAB L501.5300 136-145 mmol/L NA Normal 138 LAB L501.5600 3.5-5.1 mmol/L K Normal 4.2 LAB L501.5900 98-107 mmol/L CL Normal 104 LAB L501.6100 21.0-32.0 mmol/L Normal CO2 27.0 LAB L501.6200 5-15 Normal GAP 7 Performed By: #### L500.4050, L500.4100, L501.9520 #### [facility] [address] [place], [address] LIPID PROFILE Collected: 03/01/2018 Status: F Source: [place] 9:20 AM [facility] REPOSITORY TYPE CODE TESTS RESULT OUT OF RANGE REFERENCE UNITS LAB L501.4900 200 mg/dL Normal CHOL 176 Result Comment: <200 mg/dL Desirable 200-240 mg/dL Borderline >240 mg/dL High Risk LAB L501.5000 mg/dL High TRIG 201 Result Comment: The drugs N-Acetylcysteine and Metamizole may falsely depress this assay. Serum Triglycerides Reference Interval Normal <150 mg/dL Borderline high 150 - 199 mg/dL High 200 - 499 mg/dL Very High > or = 500 mg/dL LAB L501.6400 mg/dL Normal HDL 48 Result Comment: The drugs N-Acetylcysteine and Metamizole may falsely depress this assay. Reference Range HDL <40 mg/dL Low HDL Cholesterol HDL >or= 60 mg/dL High HDL Cholesterol LAB L501.6500 0-130 mg/dL Normal LDL 88 LAB L501.6600 5-40 mg/dL Normal VLDL 40 Performed By: #### L500.4050, L500.4100, L501.9520 #### [facility] [address] [place], [address] THYROID STIM HORMONE Collected: 03/01/2018 Status: F Source: [place] (TSH) 9:20 AM [facility] REPOSITORY TYPE CODE TESTS RESULT OUT OF RANGE REFERENCE UNITS LAB L501.9520 0.358-3.74 uIU/mL High TSH 3.81 Performed By: #### L500.4050, L500.4100, L501.9520 #### [facility] [address] [place], [address] VITAMIN D,25 HYDROXY Collected: 03/01/2018 Status: F Source: [place] 9:20 AM [facility] REPOSITORY TYPE CODE TESTS RESULT OUT OF REFERENCE UNITS RANGE LAB L506.1000 29.95-100.01 ng/mL Low Vitamin D 16.4 25-OH Result Comment: Vitamin D 25(OH) Status Range Deficiency <20 ng/mL (50nmol/L) Insuffciency 20 - 30 ng/mL (50 - 75 nmol/L) Sufficiency 30 - 100 ng/mL (75 - 250 nmol/L) Toxicity >100 ng/mL (>250 nmol/L) Performed By: #### L506.1000, L509.3000 #### [facility] [address] [place], [address] TESTOSTERONE, SERUM TOTAL Collected: 03/01/2018 Status: F Source: [place] 9:20 AM [facility] REPOSITORY TYPE CODE TESTS RESULT OUT OF REFERENCE UNITS RANGE LAB L509.3000 ng/dL Testosterone Normal 518.62 Result Comment: NORMAL REFERENCE RANGES MALE AGE <50 123.06 - 813.86 ng/dL MALE AGE >50 89.98 - 780.10 ng/dL FEMALE PREMENOPAUSE AGE 21 - 60 9.01 - 47.94 ng/dL FEMALE POSTMENOPAUSE AGE 45 - 89 <7.00 - 45.62 ng/dL REFERENCE RANGE AND METHODOLOGY CHANGED 10/10/2017 Performed By: #### L506.1000, L509.3000 #### [facility] [place], [address] CBC W/DIFF, AUTOMATED Collected: 02/25/2018 Status: F Source: [place] 11:39 AM [facility] REPOSITORY TYPE CODE TESTS RESULT OUT OF RANGE REFERENCE UNITS LAB L100.1000 4.4-11.0 K/mm3 Normal WBC 5.6 LAB L100.1200 4.6-6.2 M/mm3 Low RBC 3.70 LAB L100.1300 13.0-16.5 g/dl Low HGB 11.5 LAB L100.1400 40-54 % Low HCT 34.2 LAB L100.1500 80-94 fL Normal MCV 92.4 LAB L100.1600 27.0-32.0 pg Normal MCH 31.1 LAB L100.1700 32-36 g/gl Normal MCHC 33.6 LAB L100.1810 11.6-14.6 % Normal RDW CV 14.1 LAB L100.1820 35.1-43.9 fl High RDW SD 46.1 LAB L100.1900 150-450 K/mm3 Normal PLT 186 LAB L100.2000 6.2-12.0 fl Normal MPV 9.8 LAB L100.2100 47-70 % Normal NEUT% 53.5 LAB L100.2200 19-41 % Normal LY% 31.9 LAB L100.2300 0-10 % High MONO% 12.1 LAB L100.2400 0-5 % Normal EO% 1.4 LAB L100.2500 0-1 % Normal BASO% 0.7 LAB L100.2550 0.0-0.9 % Normal IM GRAN % 0.400 Result Comment: IG% - Immature Granulocytes (promyelocytes, myelocytes and metamyelocytes) > 1% indicates that a LEFT SHIFT is Present. LAB L100.2620 2.0-7.7 X10 3/uL Normal Absolute Neut 3.0 LAB L100.2720 0.83-4.51 X10 3/ul Normal Absolute Lymph 1.79 Performed By: #### L100.0100 #### [facility] [address] [place], [address] BASIC METABOLIC Collected: 02/25/2018 Status: F Source: [place] PROFILE (BMP) 11:39 AM [facility] REPOSITORY TYPE CODE TESTS RESULT OUT OF RANGE REFERENCE UNITS LAB L501.0100 74-106 mg/dL High GLU 357 Result Comment: Glucose result greater than or equal to 200 mg/dL suggests DIABETES MELLITUS per A.D.A. criteria. Please note revised GLUCOSE reference range effective 2017. LAB L501.1000 7-18 mg/dL High BUN 23 LAB L501.1100 0.70-1.30 mg/dL Normal CREAT,SERUM 1.14 Result Comment: The validity of the calculated GFR AND GFRAA in patients over 70 years has not been determined. Clinical correlation is essential. LAB L501.1110 >60 mL/min Normal EST GFR 67 Result Comment: Non- GFR Calc LAB L501.1115 >60 mL/min Normal EST GFR - AA 81 Result Comment: GFR Calc LAB L501.1300 10-20 RATIO High BUN/CRE 20.2 LAB L501.2200 8.5-10.1 mg/dL CA Normal 8.8 LAB L501.5300 136-145 mmol/L NA Normal 138 LAB L501.5600 3.5-5.1 mmol/L K Normal 4.8 LAB L501.5900 98-107 mmol/L CL Normal 104 LAB L501.6100 21.0-32.0 mmol/L Normal CO2 28.0 LAB L501.6200 5-15 Normal GAP 6 Performed By: #### L500.2500 #### [facility] [address] [place], [address] Observed: 01/02/2018 Status: F Source: [place] RESPIRATORY PANEL 5:34 PM [facility] MOLECULAR REPOSITORY RP PANEL Normal Reference Range = Not Detected RESULTS CALLED TO /NURSE LINE 01/03/18 1441 Dang Guzman. Copy of report sent to Infection Control Printer [id number] 01/03/18 144 SANYANNON. ADENOVIRUS Not Detected HUMAN METAPHNEUMO Not Detected INFLUENZA A Not Detected INFLUENZA A (SUBTYPE H1) Not Detected INFLUENZA A (SUBTYPE H3) Not Detected INFLUENZA B Not Detected PARAINFLUENZA 1 Not Detected PARAINFLUENZA 2 Not Detected PARAINFLUENZA 3 Not Detected PARAINFLUENZA 4 Not Detected RHINOVIRUS Positive for RHINOVIRUS by NAAT technology RSV A Not Detected RSV B Not Detected NAAT METHOD Testing was performed using nucleic acid amplification ORGANISM 1: RHINOVIRUS Performed By: #### M100.638 #### [facility] [address] [place], [address] CBC W/DIFF, AUTOMATED Collected: 12/06/2017 Status: F Source: [place] 10:24 AM [facility] REPOSITORY TYPE CODE TESTS RESULT OUT OF RANGE REFERENCE UNITS LAB L100.1000 4.4-11.0 K/mm3 Normal WBC 5.9 LAB L100.1200 4.6-6.2 M/mm3 Low RBC 4.03 LAB L100.1300 13.0-16.5 g/dl Low HGB 12.1 LAB L100.1400 40-54 % Low HCT 36.8 LAB L100.1500 80-94 fL Normal MCV 91.3 LAB L100.1600 27.0-32.0 pg Normal MCH 30.0 LAB L100.1700 32-36 g/gl Normal MCHC 32.9 LAB L100.1810 11.6-14.6 % Normal RDW CV 14.4 LAB L100.1820 35.1-43.9 fl High RDW SD 47.4 LAB L100.1900 150-450 K/mm3 Normal PLT 166 LAB L100.2000 6.2-12.0 fl Normal MPV 9.9 LAB L100.2100 47-70 % Low NEUT% 45.2 LAB L100.2200 19-41 % High LY% 43.4 LAB L100.2300 0-10 % Normal MONO% 9.4 LAB L100.2400 0-5 % Normal EO% 1.2 LAB L100.2500 0-1 % Normal BASO% 0.3 LAB L100.2550 0.0-0.9 % Normal IM GRAN % 0.500 Result Comment: IG% - Immature Granulocytes (promyelocytes, myelocytes and metamyelocytes) > 1% indicates that a LEFT SHIFT is Present. LAB L100.2620 2.0-7.7 X10 3/uL Normal Absolute Neut 2.6 LAB L100.2720 0.83-4.51 X10 3/ul Normal Absolute Lymph 2.54 Performed By: #### L100.0100 #### [facility] [address] [place], [address] COMPREHENSIVE METABOLIC Collected: 12/06/2017 Status: F Source: [place] [facility] 10:24 AM [facility] REPOSITORY TYPE CODE TESTS RESULT OUT OF RANGE REFERENCE UNITS LAB L501.0100 74-106 mg/dL High GLU 247 Result Comment: Glucose result greater than or equal to 200 mg/dL suggests DIABETES MELLITUS per A.D.A. criteria. Please note revised GLUCOSE reference range effective 2017. LAB L501.1000 7-18 mg/dL High BUN 26 LAB L501.1100 0.70-1.30 mg/dL Normal CREAT,SERUM 1.14 Result Comment: The validity of the calculated GFR AND GFRAA in patients over 70 years has not been determined. Clinical correlation is essential. LAB L501.1110 >60 mL/min Normal EST GFR 67 Result Comment: Non- GFR Calc LAB L501.1115 >60 mL/min Normal EST GFR - AA 81 Result Comment: GFR Calc LAB L501.1300 10-20 RATIO High BUN/CRE 22.8 LAB L501.1500 6.4-8.2 g/dL T Normal PROT 6.4 LAB L501.1800 3.2-5.0 g/dL Normal ALB 3.4 LAB L501.1950 2.2-4.2 g/dL Normal GLOB 3.0 LAB L501.2000 0.9-2.4 RATIO Normal A/G 1.1 LAB L501.2200 8.5-10.1 mg/dL CA Normal 8.7 LAB L501.4100 15-37 U/L Normal AST 17 LAB L501.4305 45-117 U/L Normal ALK P 53 LAB L501.4405 16-61 U/L Normal ALT 33 Result Comment: Please note revised ALT reference range effective 2017. LAB L501.4600 0.20-1.00 mg/dL Normal T BILI 0.60 LAB L501.5300 136-145 mmol/L Normal NA 136 LAB L501.5600 3.5-5.1 mmol/L Normal K 4.7 LAB L501.5900 98-107 mmol/L Normal CL 102 LAB L501.6100 21.0-32.0 mmol/L Normal CO2 28.0 LAB L501.6200 5-15 Normal GAP 6 Performed By: #### L500.4050, L500.4100, L501.9520 #### [facility] [address] [place], [place], [address] LIPID PROFILE Collected: 12/06/2017 Status: F Source: [place] 10:24 AM [facility] REPOSITORY TYPE CODE TESTS RESULT OUT OF RANGE REFERENCE UNITS LAB L501.4900 200 mg/dL Normal CHOL 182 Result Comment: <200 mg/dL Desirable 200-240 mg/dL Borderline >240 mg/dL High Risk LAB L501.5000 mg/dL High TRIG 222 Result Comment: The drugs N-Acetylcysteine and Metamizole may falsely depress this assay. Serum Triglycerides Reference Interval Normal <150 mg/dL Borderline high 150 - 199 mg/dL High 200 - 499 mg/dL Very High > or = 500 mg/dL LAB L501.6400 mg/dL Normal HDL 58 Result Comment: The drugs N-Acetylcysteine and Metamizole may falsely depress this assay. Reference Range HDL <40 mg/dL Low HDL Cholesterol HDL >or= 60 mg/dL High HDL Cholesterol LAB L501.6500 0-130 mg/dL Normal LDL 80 LAB L501.6600 5-40 mg/dL High VLDL 44 Performed By: #### L500.4050, L500.4100, L501.9520 #### [facility] [address] [place], [place], [address] THYROID STIM HORMONE Collected: 12/06/2017 Status: F Source: [place] (TSH) 10:24 AM [facility] REPOSITORY TYPE CODE TESTS RESULT OUT OF RANGE REFERENCE UNITS LAB L501.9520 0.358-3.74 uIU/mL Normal TSH 3.25 Performed By: #### L500.4050, L500.4100, L501.9520 #### [facility] [address] [place], [address] TESTOSTERONE, SERUM TOTAL Collected: 12/06/2017 Status: F Source: [place] 10:24 AM [facility] REPOSITORY TYPE CODE TESTS RESULT OUT OF REFERENCE UNITS RANGE LAB L509.3000 ng/dL Testosterone Normal 545.77 Result Comment: NORMAL REFERENCE RANGES MALE AGE <50 123.06 - 813.86 ng/dL MALE AGE >50 89.98 - 780.10 ng/dL FEMALE PREMENOPAUSE AGE 21 - 60 9.01 - 47.94 ng/dL FEMALE POSTMENOPAUSE AGE 45 - 89 <7.00 - 45.62 ng/dL REFERENCE RANGE AND METHODOLOGY CHANGED 10/10/2017 Performed By: #### L509.3000 #### [facility] [address] [place], [address] ALLERGIES ALLERGIES DATE TYPE / CODE NAME / CODE REACTION SEVERITY SOURCE 10/12/2018 Drug ciprofloxacin Pain in joints Unknown [place] Allergy/416 HCl/[id number]([facility] Community [id number]([facility] Hospital ED CT) Repository 04/21/2016 DRUG CIPROFLOXACIN OTHER: SEE C [facility] INGREDI/419 [facility] [id number]([facility] Repository ED CT) ENCOUNTERS ENCOUNTERS ADMIT/DISCHARGE ACCOUNT ADMITTING ENCOUNTER LOCATION SOURCE NUMBER CLASS 11/07/2018 [id number] [facility] ing:LAB.DAYLINBETINA Repository E 11/06/2018 [id number] Ambulatory [facility] ing:POLAB3 Repository 10/12/2018/10/13/20 [id number] Emergency [address] ing:ED Repository 09/11/2018 [id number] Ambulatory [facility] ing:POLAB3 Repository 08/12/2018/08/16/[id number] Repository 08/01/2018 [id number] Ambulatory [facility] ing:[facility] Repository 07/17/2018 [id number] Ambulatory [facility] ing:POLAB3 Repository 07/10/2018/07/21/20 [id number] Ambulatory [address] ing:CVS Repository 07/03/2018 [id number] Ambulatory BMSBuilding:[facility] Hospital Repository 06/26/2018 [id number] Ambulatory BMSBuilding:[facility] Hospital Repository 06/19/2018/06/21/20 [id number] Ambulatory [address] HospitalBuild Hospital ing:WC Repository 06/19/2018 [id number] Ambulatory BMSBuilding:[facility] Hospital Repository 06/19/2018 [id number] Ambulatory [facility] Hospital ing:US Repository 06/14/2018 [id number] Ambulatory [facility] ing:POLAB3 Repository 06/07/2018 [id number] Ambulatory [facility] Hospital ing:POLAB3 Repository 03/01/2018 [id number] Ambulatory [facility] Hospital ing:POLAB3 Repository 02/25/2018 [id number] Ambulatory [facility] Hospital ing:POLAB3 Repository 01/02/2018 [id number] Ambulatory [facility] Hospital ing:PSN Repository 12/06/2017 [id number] Ambulatory [facility] Hospital ing:POLAB3 Repository PAYERS PAYERS ENCOUNTER GUARANTOR PAYER SUBSCRIBER SOURCE 11/07/2018 DEBI P Primary DEBI P [place] [id number] Insurance:HUMANA [facility]TD[facility] PPOPolicy [id number] Number: Repository [address]Ivp: (114) [id number] [phone] () Date:7032-53-76PB [address] [place] [address]AJ: 11/07/2018 Secondary NOT GIVENUNK [place] Insurance:SELF PAY [facility] Number: Effective Repository Date:2018-11-07 11/06/2018 DEBI P Primary DEBI P [place] [id number] Insurance:HUMANA BARNETTDOB[facility] PPOPolicy [id number] Number: Repository [address]Aaq: (330) [id number] [phone] (HP) Date:8738-38-02CK [address] [address]OY: 11/06/2018 Secondary NOT GIVENUNK [place] Insurance:SELF PAY [facility] Number: Effective Repository Date:2018-09-19 10/12/2018 DEBI P Primary DEBI P [place] [id number] Insurance:HUMANA BARNETTDOB: Community [place] DR[place] MEDICARE OPolicy [id number] [place] Number: Repository [address]Dzb: 330 [id number] [phone] (HP) Date:0843-14-89ET [address] [address]RC: 10/12/2018 Secondary NOT GIVENUNK [place] Insurance:SELF PAY [facility] Number: Effective Repository Date:2018-10-12 09/11/2018 DEBI P Primary DEBI P [place] [id number] Insurance:HUMANA BARNETTDOB: Community [place] DRUNIT MEDICARE [facility] [id number] [place] Number: Repository [address]Ufu: [phone] [id number] [phone] (HP) Date:9756-61-29JT [address] [address]FG: 09/11/2018 Secondary NOT GIVENUNK [place] Insurance:SELF PAY [facility] Number: Effective Repository Date:2018-09-11 08/01/2018 DEBI P Primary DEBI P [place] [id number] Insurance:HUMANA BARNETTDOB: Community [place] DR[place] MEDICARE [facility] [id number] [place] Number: Repository [address]Rkd: (330 [id number] [phone] (HP) Date:1354-31-21DR [address] [address]FS: 08/01/2018 Secondary NOT GIVENUNK [place] Insurance:SELF PAY [facility] Number: Effective Repository Date:2018-07-22 07/17/2018 DEBI P Primary DEBI P [place] [id number] Insurance:HUMANA BARNETTDOB: Community [place] MEDICARE [facility] [id number] Number: Repository [address]Pzq: (330 [id number] [phone] (HP) Date:5648-34-63RX [address] [address]JW: 07/17/2018 Secondary NOT GIVENUNK [place] Insurance:SELF PAY [facility] Number: Effective Repository Date:2018-07-17 07/10/2018 DEBI P Primary DEBI P [place] [id number] Insurance:HUMANA BARNETTDOB: Community [place]ORE DRUNIT MEDICARE [facility] [id number] [place] Number: Repository [address]Bre: 330 [id number] [phone] (HP) Date:1277-88-57XM [address]4601WP: 07/10/2018 Secondary NOT GIVENUNK [place] Insurance:SELF PAY [facility] Number: Effective Repository Date:2018-06-22 07/03/2018 Debi P Primary Debi P [place] [id number] Insurance:HUMANA BarnettDOB: Community [place] [address] MEDICARE [facility] [id number] [place] Number: Repository [address]Xur: (330 [id number] [phone] (HP) Date:4258-10-06DQ [address] [address]MI: 07/03/2018 Secondary NOT GIVENUNK [place] Insurance:SELF PAY [facility] Number: Effective Repository Date:2018-07-03 06/26/2018 Debi P Primary Debi P [place] [id number] Insurance:HUMANA BarnettDOB: Community [address] MEDICARE [facility] [id number], [place] Number: Repository [address]Yhr: (330 [id number] [phone] (HP) Date:9774-35-40EV [address] [place] [address]AJ: 06/26/2018 Secondary NOT GIVENUNK [place] Insurance:SELF PAY [facility] Number: Effective Repository Date:2018-06-26 06/19/2018 Debi P Primary Debi P [place] [id number] Insurance:HUMANA BarnettDOB: Community [place] [address] MEDICARE [facility] [id number] Number: Repository [address]Vbu: 330 [id number] [phone] (HP) Date:3114-58-39HU [address] [address]GZ: 06/19/2018 Secondary NOT GIVENUNK [place] Insurance:SELF PAY [facility] Number: Effective Repository Date:2018-06-17 06/19/2018 Debi P Primary Debi P [place] [id number] Insurance:HUMANA BarnettDOB: Community [address] MEDICARE [facility] [id number] Number: Repository [address]Sdm: (330 [id number] [phone] (HP) Date:7082-62-68MM [address] [address]YG: 06/19/2018 Secondary NOT GIVENUNK [place] Insurance:SELF PAY [facility] Number: Effective Repository Date:2018-06-19 06/19/2018 Debi P Primary Debi P [place] [id number] Insurance:HUMANA BarnettDOB: Community [place] [address] MEDICARE [facility] [id number] Number: Repository [address]Khs: 330 [id number] [phone] (HP) Date:5069-52-49ZF [address] [address]UI: 06/19/2018 Secondary NOT GIVENUNK [place] Insurance:SELF PAY [facility] Number: Effective Repository Date:2018-06-17 06/14/2018 Debi P Primary Debi P [place] [id number] Insurance:HUMANA BarnettDOB: Community [address] MEDICARE OPolicy [id number] [place] Number: Repository [address]Def: (330) [id number] [phone]) Date:0502-39-69BJ [address] [address]ZW: 06/14/2018 Secondary NOT GIVENUNK [place] Insurance:SELF PAY [facility] Number: Effective Repository Date:2018-06-14 06/07/2018 Debi P Primary Debi P [place] [id number] Insurance:HUMANA BarnettDOB: Community [place] [address] MEDICARE [facility] [id number] Number: Repository [address]Ckc: (330) [id number] [phone]) Date:8889-76-37TL [place] [address]WP: 06/07/2018 Secondary NOT GIVENUNK [place] Insurance:SELF PAY [facility] Number: Effective Repository Date:2018-06-07 03/01/2018 Debi P Primary Debi P [place] [id number] Insurance:HUMANA BarnettDOB: Community [place] [address] MEDICARE [facility] [id number] Number: Repository [address]Afw: (330) [id number] [phone] (HP) Date:7219-95-86PX [address] [address]HY: 03/01/2018 Secondary NOT GIVENUNK [place] Insurance:SELF PAY [facility] Number: Effective Repository Date:2018-03-01 02/25/2018 Debi P Primary Debi P [place] [id number] Insurance:HUMANA BarnettDOB: Community [place] [address] MEDICARE [facility] [id number] Number: Repository [address]Ngr: (330) [id number] [phone] (HP) Date:8925-82-49[place] [address]WP: 02/25/2018 Secondary NOT GIVENUNK [place] Insurance:SELF PAY [facility] Number: Effective Repository Date:2018-02-25 01/02/2018 Debi Watts Primary [address]bi [address] [id number] Insurance:HUMANA BarnettDOB: Community [address] MEDICARE [facility] [id number] Number: Repository [address]Vvx: 330 [id number] [phone] () Date:3327-23-60AO [address] [place] [address]MK: 01/02/2018 Secondary NOT GIVENUNK [place] Insurance:SELF PAY [facility] Number: Effective Repository Date:2018-01-02 12/06/2017 Debi Watts Primary Debi [place] [id number] Insurance:HUMANA BarnettDOB: Community [place] [address] MEDICARE [facility] [id number] Number: Repository [address]Eip: 330 [id number] [phone] () Date:4219-37-49KK [address] [place] [address]WJ: 12/06/2017 Secondary NOT GIVENUNK [place] Insurance:SELF PAY [facility] Number: Effective Repository Date:2017-12-06
== END ==
PROVIDERS: Family Provider Family Medicine Geriatric Medicine; PCP Family Medicine Geriatric Medicine; Visit Provider Internal Medicine Nephrology
DX: N18.3 Chronic kidney disease, stage 3 (moderate) (principal); E03.9 Hypothyroidism, unspecified
CPT/HCPCS: 82570; 84156

== ENCOUNTER → 2018-12-16 10:20 | Outpatient (CLI) | payer MEDICARE, SELFPAY ==
[2018-12-16 12:47] LABS: Absolute Lymphocyte Count 1.64 X10^3/ul (0.83-4.51); Absolute Neutrophil Count 2.9 X10^3/uL (2.0-7.7); Basophil# 0.06 X10^3/uL; Basophil% 1.1 % (0-1); Eosinophil# 0.22 X10^3/uL; Hematocrit 29.5 % (40-54); Hemoglobin 9.1 g/dl (13.0-16.5); Lymphocyte # 1.64 X10^3/ul (4.0); Lymphocyte % 30.1 % (19-41); Mean Corp Hgb Conc 30.8 g/gl (32-36); Mean Corpuscular Hgb 26.4 pg (27.0-32.0); Mean Corpuscular Volume 85.5 fL (80-94); Monocyte# 0.58 X10^3/uL; Monocyte% 10.7 % (0-10); Neutrophil # 2.94 X10^3/uL (2.7-7.7); Neutrophil % 54.1 % (47-70); Platelet Count 211 K/mm3 (150-450); RBC Distribution Width CV 15.1 % (11.6-14.6); Red Blood Count 3.45 M/mm3 (4.6-6.2); White Blood Count 5.4 K/mm3 (4.4-11.0)
[2018-12-16 12:50] LABS: Protein, Urine (Random) 49.8 mg/dL (<11.9); Protein:Creat Ratio 323 mg/g CRE (0-200)
[2018-12-16 13:08] LABS: Vitamin D,25 Hydroxy 15.5 ng/mL (29.95-100.01)
[2018-12-16 13:10] LABS: POSITIVE COUNT NO; POSITIVE DIFFERENTIAL NO; POSITIVE MORPHOLOGY NO
[2018-12-16 13:43] LABS: AST(SGOT) 18 U/L (15-37); Alanine Aminotransfer ALT/SGPT 22 U/L (16-61); Albumin, Serum 3.3 g/dL (3.2-5.0); Alkaline Phosphatase 68 U/L (45-117); Anion Gap 9 (5-15); BUN 23 mg/dL (7-18); BUN/Creat Ratio 20.5 RATIO (10-20); Calcium,Total 8.2 mg/dL (8.5-10.1); Chloride 111 mmol/L (98-107); Cholesterol 122 mg/dL (200); Creatinine, Serum 1.12 mg/dL (0.70-1.30); EST Glomerular Filtration Rate 68 mL/min (>60); Est Glom Filt Rate - Afr Amer 82 mL/min (>60); Globulin 3.2 g/dL (2.2-4.2); Glucose 168 mg/dL (74-106); High Density Lipoprotein 40 mg/dL; Potassium 4.3 mmol/L (3.5-5.1); Protein, Total 6.5 g/dL (6.4-8.2); Sodium Level 144 mmol/L (136-145); Triglycerides 137 mg/dL; Very Low Density Lipoprotein 27 mg/dL (5-40)
== END ==
PROVIDERS: Family Provider Family Medicine Geriatric Medicine; PCP Family Medicine Geriatric Medicine; Visit Provider Internal Medicine Nephrology
DX: I12.9 Hypertensive chronic kidney disease with stage 1 through stage 4 chronic kidney disease, or unspecified chronic kidney disease (principal); N18.3 Chronic kidney disease, stage 3 (moderate); E11.9 Type 2 diabetes mellitus without complications; E55.9 Vitamin D deficiency, unspecified; F52.8 Other sexual dysfunction not due to a substance or known physiological condition; E78.5 Hyperlipidemia, unspecified
CPT/HCPCS: 36415; 80053; 80061; 82306; 82570; 84156; 84403; 84443; 85025

== ENCOUNTER → 2019-02-26 11:25 | Outpatient (CLI) | payer MEDICARE, SELFPAY ==
[2019-02-26 12:25] LABS: Absolute Lymphocyte Count 1.68 X10^3/ul (0.83-4.51); Absolute Neutrophil Count 3.8 X10^3/uL (2.0-7.7); Basophil# 0.05 X10^3/uL; Basophil% 0.8 % (0-1); Eosinophil# 0.18 X10^3/uL; Eosinophils% 2.9 % (0-5); Hematocrit 32.4 % (40-54); Hemoglobin 9.9 g/dl (13.0-16.5); Lymphocyte # 1.68 X10^3/ul (4.0); Lymphocyte % 26.9 % (19-41); Mean Corp Hgb Conc 30.6 g/gl (32-36); Mean Corpuscular Hgb 24.9 pg (27.0-32.0); Mean Corpuscular Volume 81.4 fL (80-94); Mean Platelet Vol. 9.7 fl (6.2-12.0); Monocyte# 0.52 X10^3/uL; Monocyte% 8.3 % (0-10); Neutrophil % 60.9 % (47-70); Platelet Count 219 K/mm3 (150-450); RBC Distribution Width CV 16.9 % (11.6-14.6); RBC Distribution Width SD 49.2 fl (35.1-43.9); Red Blood Count 3.98 M/mm3 (4.6-6.2); White Blood Count 6.2 K/mm3 (4.4-11.0)
[2019-02-26 12:29] LABS: POSITIVE COUNT NO; POSITIVE DIFFERENTIAL NO; POSITIVE MORPHOLOGY NO
[2019-02-26 12:46] LABS: Vitamin D,25 Hydroxy 19.1 ng/mL (29.95-100.01)
[2019-02-26 12:51] LABS: AST(SGOT) 21 U/L (15-37); Alanine Aminotransfer ALT/SGPT 26 U/L (16-61); Albumin, Serum 3.5 g/dL (3.2-5.0); Alkaline Phosphatase 77 U/L (45-117); Anion Gap 6 (5-15); BUN 20 mg/dL (7-18); BUN/Creat Ratio 16.3 RATIO (10-20); Calcium,Total 8.4 mg/dL (8.5-10.1); Chloride 109 mmol/L (98-107); Cholesterol 150 mg/dL (200); Creatinine, Serum 1.23 mg/dL (0.70-1.30); EST Glomerular Filtration Rate 61 mL/min (>60); Est Glom Filt Rate - Afr Amer 74 mL/min (>60); Globulin 3.6 g/dL (2.2-4.2); Glucose 130 mg/dL (74-106); High Density Lipoprotein 46 mg/dL; Potassium 4.3 mmol/L (3.5-5.1); Protein, Total 7.1 g/dL (6.4-8.2); Sodium Level 142 mmol/L (136-145); Thyroid Stim Hormone (TSH) 2.78 uIU/mL (0.358-3.74); Triglycerides 157 mg/dL; Very Low Density Lipoprotein 31 mg/dL (5-40)
== END ==
PROVIDERS: Family Provider Family Medicine Geriatric Medicine; PCP Family Medicine Geriatric Medicine; Visit Provider Family Medicine Geriatric Medicine
DX: E55.9 Vitamin D deficiency, unspecified (principal); I10 Essential (primary) hypertension; E11.9 Type 2 diabetes mellitus without complications; E78.5 Hyperlipidemia, unspecified; F52.8 Other sexual dysfunction not due to a substance or known physiological condition
CPT/HCPCS: 36415; 80053; 80061; 82306; 84403; 84443; 85025

== ENCOUNTER → 2019-05-27 10:22 | Outpatient (CLI) | payer MEDICARE, SELFPAY ==
[2019-05-27 12:47] LABS: Absolute Lymphocyte Count 1.62 X10^3/uL (0.83-4.51); Absolute Neutrophil Count 3.6 X10^3/uL (2.0-7.7); Basophil# 0.07 X10^3/uL; Basophil% 1.2 % (0-1); Eosinophil# 0.12 X10^3/uL; Hematocrit 33.9 % (40-54); Hemoglobin 10.7 g/dL (13.0-16.5); Lymphocyte # 1.62 X10^3/ul (4.0); Lymphocyte % 27.1 % (19-41); Mean Corp Hgb Conc 31.6 g/dL (32-36); Mean Corpuscular Hgb 26.8 pg (27.0-32.0); Mean Platelet Vol. 9.7 fl (6.2-12.0); Monocyte# 0.53 X10^3/uL; Monocyte% 8.9 % (0-10); NRBC Flagged by Analyzer 0 % (0-5); Neutrophil # 3.62 X10^3/uL (2.7-7.7); Neutrophil % 60.5 % (47-70); Platelet Count 270 K/mm3 (150-450); RBC Distribution Width CV 15.3 % (11.6-14.6); RBC Distribution Width SD 47.5 fl (35.1-43.9); Red Blood Count 3.99 M/mm3 (4.6-6.2)
[2019-05-27 13:04] LABS: Vitamin D,25 Hydroxy 20.8 ng/mL (29.95-100.01)
[2019-05-27 13:08] LABS: ALB/GLOB Ratio 0.8 RATIO (0.9-2.4); AST(SGOT) 23 U/L (15-37); Alanine Aminotransfer ALT/SGPT 20 U/L (16-61); Albumin, Serum 3.2 g/dL (3.2-5.0); Alkaline Phosphatase 87 U/L (45-117); Anion Gap 7 (5-15); BUN 20 mg/dL (7-18); BUN/Creat Ratio 16.9 RATIO (10-20); Calcium,Total 8.7 mg/dL (8.5-10.1); Chloride 106 mmol/L (98-107); Cholesterol 151 mg/dL (200); Creatinine, Serum 1.18 mg/dL (0.70-1.30); EST Glomerular Filtration Rate 64 mL/min (>60); Est Glom Filt Rate - Afr Amer 78 mL/min (>60); Globulin 3.8 g/dL (2.2-4.2); Glucose 66 mg/dL (74-106); High Density Lipoprotein 41 mg/dL; Potassium 3.9 mmol/L (3.5-5.1); Sodium Level 139 mmol/L (136-145); Thyroid Stim Hormone (TSH) 3.43 uIU/mL (0.358-3.74); Triglycerides 184 mg/dL; Very Low Density Lipoprotein 37 mg/dL (5-40)
--- NOTE | 2019-05-27 14:05 | RAD_ITS ---
STUDY: X-RAY - ABDOMEN/PELVIS REASON FOR EXAM: Male, 73 years old. Fecal impaction TECHNIQUE: AP supine and upright views of the abdomen and pelvis. COMPARISON: 10/12/2018. FINDINGS: Normal visualized lung bases. There is a moderate amount of colonic fecal material. No dilated loops of bowel. No specific evidence for obstruction or fecal impaction. There is no demonstrated free abdominal air. The visualized liver, spleen and kidneys are grossly normal in size and morphology. Normal soft tissue structures. Normal visualized osseous structures. RAD/Abd Inc Decub and/or Erect IMPRESSION: Moderate fecal retention, otherwise negative. Electronically Signed: Clarke Rai MD at 16:59 EDT , Service support ,
== END ==
PROVIDERS: Family Provider Family Medicine Geriatric Medicine; PCP Family Medicine Geriatric Medicine; Referring Provider Family Medicine Geriatric Medicine; Visit Provider Family Medicine Geriatric Medicine
DX: E11.9 Type 2 diabetes mellitus without complications (principal); E55.9 Vitamin D deficiency, unspecified; F52.8 Other sexual dysfunction not due to a substance or known physiological condition; I10 Essential (primary) hypertension; K56.41 Fecal impaction
CPT/HCPCS: 36415; 74019; 80053; 80061; 82306; 84443; 85025

== ENCOUNTER → 2019-06-16 11:07 | Outpatient (CLI) | payer MEDICARE, SELFPAY ==
--- NOTE | 2019-06-16 11:10 | RAD_ITS ---
STUDY: X-RAY - ABDOMEN/PELVIS REASON FOR EXAM: Male, 73 years old. Right upper quadrant pain TECHNIQUE: Flat and upright COMPARISON: May 27, 2019 FINDINGS: Normal visualized lung bases. There is diffuse fecal retention seen within the colon. . There is no demonstrated free abdominal air. The visualized liver, spleen and kidneys are grossly normal in size and morphology. Postop change status post cholecystectomy Tiny calcification in left upper quadrant consistent with renal stone.. Lumbar spine demonstrates degenerative change RAD/Abd Inc Decub and/or Erect IMPRESSION: Left nephrolithiasis Nonspecific diffuse fecal retention. Electronically Signed: Armaan Kaur MD at 17:16 EDT , Service support ,
[2019-06-16 16:17] LABS: Absolute Lymphocyte Count 1.21 X10^3/uL (0.83-4.51); Absolute Neutrophil Count 4.5 X10^3/uL (2.0-7.7); Basophil# 0.06 X10^3/uL; Basophil% 0.9 % (0-1); Eosinophil# 0.06 X10^3/uL; Eosinophils% 0.9 % (0-5); Hematocrit 35.4 % (40-54); Hemoglobin 11.2 g/dL (13.0-16.5); Lymphocyte # 1.21 X10^3/ul (4.0); Lymphocyte % 18.9 % (19-41); Mean Corp Hgb Conc 31.6 g/dL (32-36); Mean Corpuscular Hgb 27.9 pg (27.0-32.0); Mean Corpuscular Volume 88.3 fL (80-94); Mean Platelet Vol. 9.4 fl (6.2-12.0); Monocyte# 0.55 X10^3/uL; Monocyte% 8.6 % (0-10); NRBC Flagged by Analyzer 0 % (0-5); Neutrophil % 70.4 % (47-70); Platelet Count 349 K/mm3 (150-450); RBC Distribution Width CV 15.5 % (11.6-14.6); RBC Distribution Width SD 49.8 fl (35.1-43.9); Red Blood Count 4.01 M/mm3 (4.6-6.2); White Blood Count 6.4 K/mm3 (4.4-11.0)
[2019-06-16 16:42] LABS: ALB/GLOB Ratio 0.7 RATIO (0.9-2.4); AST(SGOT) 25 U/L (15-37); Alanine Aminotransfer ALT/SGPT 19 U/L (16-61); Albumin, Serum 2.9 g/dL (3.2-5.0); Alkaline Phosphatase 99 U/L (45-117); Anion Gap 8 (5-15); BUN 13 mg/dL (7-18); BUN/Creat Ratio 9.4 RATIO (10-20); Chloride 106 mmol/L (98-107); Creatinine, Serum 1.39 mg/dL (0.70-1.30); EST Glomerular Filtration Rate 53 mL/min (>60); Est Glom Filt Rate - Afr Amer 64 mL/min (>60); Globulin 4.3 g/dL (2.2-4.2); Glucose 120 mg/dL (74-106); Potassium 4.4 mmol/L (3.5-5.1); Protein, Total 7.2 g/dL (6.4-8.2); Sodium Level 140 mmol/L (136-145); Thyroid Stim Hormone (TSH) 2.84 uIU/mL (0.358-3.74)
== END ==
PROVIDERS: Family Provider Family Medicine Geriatric Medicine; PCP Family Medicine Geriatric Medicine; Referring Provider Family Medicine Geriatric Medicine; Visit Provider Family Medicine Geriatric Medicine
DX: E86.0 Dehydration (principal); K56.41 Fecal impaction; R53.83 Other fatigue
CPT/HCPCS: 36415; 74019; 80053; 84443; 85025

== ENCOUNTER → 2019-06-20 11:17 | Outpatient (CLI) | payer MEDICARE, SELFPAY ==
--- NOTE | 2019-06-20 11:21 | RAD_ITS ---
STUDY: X-RAY - ABDOMEN/PELVIS REASON FOR EXAM: Male, 73 years old. Fecal impaction for 2 weeks TECHNIQUE: Flat and upright COMPARISON: None. FINDINGS: Normal visualized lung bases. Mild diffuse ileus. No evidence for small bowel obstruction. There is no demonstrated free abdominal air. The visualized liver, spleen and kidneys are grossly normal in size and morphology. Status post cholecystectomy. Lumbar spine demonstrates degenerative changes RAD/Abd Inc Decub and/or Erect IMPRESSION: Mild diffuse ileus Electronically Signed: Armaan Kaur MD at 19:44 EDT , Service support ,
== END ==
PROVIDERS: Family Provider Family Medicine Geriatric Medicine; PCP Family Medicine Geriatric Medicine; Referring Provider Family Medicine Geriatric Medicine; Visit Provider Family Medicine Geriatric Medicine
DX: K56.41 Fecal impaction (principal)
CPT/HCPCS: 74019

== ENCOUNTER 2019-07-03 20:08 | Emergency (ER) | payer MEDICARE, SELFPAY ==
[2019-07-03 20:09] VITALS: BP 107/57; PULSE 72; RESP 16; TEMP 36.8; O2SAT 92; BMI 26.4
--- NOTE | 2019-07-03 20:31 | RAD_ITS ---
STUDY: X-RAY - ACUTE ABDOMINAL SERIES REASON FOR EXAM: Male, 73 years old. Right abdominal pain and weakness TECHNIQUE: Single view of the chest. Supine, and upright view(s) of the abdomen were obtained. COMPARISON: June 20, 2019. FINDINGS: There is minor scarring in the left upper and bilateral lower lobes. Postop change status post median sternotomy and CABG. Normal size heart. Normal mediastinum and artemio. Normal visualized pulmonary arteries. Normal visualized aortic arch and descending thoracic aorta. Nonspecific ileus pattern. No evidence for small bowel obstruction or pneumoperitoneum.. Gallbladder has been removed surgically. There is diffuse groundglass opacity suggesting ascites. Lumbar spine demonstrates degenerative change. RAD/Acute Abdomen Inc Chest IMPRESSION: Nonspecific ileus and findings suggestive of ascites Ultrasound or CAT scan would be helpful for further evaluation if clinically warranted Electronically Signed: Armaan Kaur MD at 21:36 EDT , Service support ,
--- NOTE | 2019-07-03 20:52 | ED.VIS.GEN ---
History of Present Illness Chief Complaint: Abd Pain Detail of Chief Complaint: Abdominal distention, nausea and vomiting, decreased stool Informant: Patient, Family - Daughter primary informant who is a nurse practitioner Onset: Weeks Context: Gradual Onset Timing: Continuous Quality: Distention, discomfort, nausea and vomiting Location: GI/abdomen Current Severity: Mild Maximum Severity: Moderate Worsened by: Nothing Relieved by: Nothing Associated Symptoms: Orthostatic symptoms, dry mouth and thirst Narrative: Patient is 73-year-old male who was recently diagnosed with peritoneal carcinoma. He was seen by oncologist at [facility]. Oncologist informed daughter that Dr. Waters could perform the work-up at [place]. Daughter states she knows Dr. Waters from [facility]. Patient reports thirst, dry mouth and orthostatic symptoms. She reports nausea vomiting and unable to keep any liquids or solids down for 24 hours. He has had small hard stool. He has increased abdominal girth. Daughter states he has ascites. He has had decreased urine output. He has had chronic swelling of his lower extremities. He complains of malaise weakness and not feeling well. Prior similar symptoms: Yes Recent Illness/Hospitalization: Yes - Past Medical History (1) Primary cancer of peritoneum Status: Acute (2) History of bladder cancer Status: Acute (3) Bilateral lower extremity edema Status: Acute (4) CAD (coronary artery disease) Status: Chronic (5) Diabetes Status: Chronic (6) Hypertension Status: Chronic Past Medical History - Allergies and Home Meds Allergies/Adverse Reactions: Allergies ciprofloxacin HCl [From Cipro] Adverse Reaction (Verified 07/03/19 20:12) Pain in joints Primary Care Physician: Georgi Marquez Chi, MD [Primary Care Provider] - Prior records reviewed: Yes Surgical History: noncontributory Lives: Alone Smoking Status: Former smoker - Quit 1983 Alcohol: None Drugs: None - Family History Paternal Family History: Reports: Diabetes Maternal Family History: Reports: Heart Disease Review of Systems General: Reports: Malaise. Denies: Chills, Fever, Sweats Eyes: Denies: Visual changes - bilaterally, Blurred Vision - bilaterally ENT: Denies: Rhinorrhea, Sore throat Cardiovascular: Denies: Chest pain, Palpitations Respiratory: Denies: Dyspnea, Cough, Dyspnea on exertion Gastrointestinal: Reports: Abdominal pain, Nausea, Vomiting. Denies: Diarrhea, Constipation, Melena, Hematochezia Genitourinary: Reports: - - Increased urine output. Denies: Dysuria, Hematuria, Frequency Musculoskeletal: Reports: Swelling. Denies: Myalgias, Arthralgias, Back pain, Extremity Pain Skin: Denies: Rash, Wounds Neurological: Reports: Weakness. Denies: Parasthesia, Numbness Hematologic: Denies: Easy bruising, Easy bleeding Allergy: Denies: Uticaria, Swelling of the mouth Physical Exam Vital Signs/Narrative: Vital Signs Temp Pulse Resp BP Pulse Ox 07/03/19 20:09 98.2 F 72 16 107/57 L 92 Inital Vital Signs reviewed: Yes General: Well developed, Acute Distress Head: Normocephalic, Atraumatic Eyes: Perrl, EOMI. Negative for: Pale conjunctiva, Scleral icterus, - ENT: No rhinorrhea, TM's clear, Dry mucous membranes Neck: Supple, Nontender, No lymphadenopathy, No JVD, - Cardiovascular: Regular rate, Regular rhythm, No murmurs, Normal S1, Normal S2 Respiratory: No distress, CTA bilaterally, Chest nontender, Decreased Air Movement Abdomen: Soft, Nontender, No masses, Hypoactive bowel sounds, - - Abdomen is tympanitic to percussion. There is a fluid wave.. Negative for: Nondistended, Normal bowel sounds Rectal: Deferred Back: Nontender, Normal Inspection Extremities: Nontender, Edema - 1+ pitting bilaterally Skin: No rash, No Trauma, Pallor. Negative for: Cyanosis, Diaphoresis, Jaundice Neurological: Alert, Oriented x3, Cranial nerves II-XII grossly intact, Normal Strength, Normal Sensation Psychological: Depressed Diagnostic/Tx/Re-eval Chest X-Ray - ED: Read by ED Physician - Abdominal x-ray series was obtained. Chest portion reveals no acute process. There is a paucity of gas centrally which would suggest ascites. There are 2 air-fluid level noted however the small bowel wall is not edematous and there is no distention. Impressions Acute Abdomen Series 07/03/19 20:31 IMPRESSION: Nonspecific ileus and findings suggestive of ascites Ultrasound or CAT scan would be helpful for further evaluation if clinically warranted Electronically Signed: Armaan Kaur MD at 21:36 EDT , Service support , 07/03/19 20:31 Acute Abdomen Inc Chest [RAD] Stat 07/03/19 21:37 Abdomen/Pel W ORAL Cont Only [CT] Stat Laboratory Results 07/03/19 07/03/19 20:55 20:55 WBC 6.0 RBC 3.85 L Hgb 10.7 L Hct 32.7 L MCV 84.9 MCH 27.8 MCHC 32.7 RDW Std Deviation 48.2 H RDW Coeff of Ashley 15.8 H Plt Count 257 MPV 9.1 Immature Gran % (Auto) 0.200 Neut % (Auto) 62.4 Lymph % (Auto) 23.2 Garrard % (Auto) 11.7 H Eos % (Auto) 1.5 Baso % (Auto) 1.0 Absolute Neuts (auto) 3.8 Absolute Lymphs (auto) 1.39 Nucleated RBC % 0 Sodium 138 Potassium 4.1 Chloride 106 Carbon Dioxide 28.0 Anion Gap 4 L BUN 26 H Creatinine 1.35 H Estim Creat Clear Calc 51.13 Est GFR (MDRD) Af Amer 66 Est GFR (MDRD) Non-Af 55 L BUN/Creatinine Ratio 19.3 Glucose 115 H Calcium 8.5 Creatinine is slightly elevated from baseline. H&H is unchanged. CT/Abdomen/Pel W ORAL Cont Only IMPRESSION: Probable cirrhosis. Moderate ascites, likely malignant, with extensive peritoneal and omental seeding suggested. Nonobstructing renal stones. Probable stomach wall thickening, abnormal small bowel consistent with ileus or partial obstruction. Possible thickening of the santamaria of small bowel and large bowel. Case was discussed with Dr. Crane. He reviewed CAT scan and did not believe there was an obstruction. I reviewed the CAT scan and do not believe there is evidence of obstruction either. More importantly patient was able to drink a bottle of contrast has been here 3-1/2 hours without vomiting. - Medical Decision Making With history of peritoneal cancer, abdominal distention with nausea and vomiting and decreased stool abdominal series was obtained to assess for bowel obstruction. Blood work was also obtained to assess electrolytes, renal function and CO2/anion gap. He does appear pale CBC was obtained to assess H&H. He received 1 L of normal saline wide open. He was medicated with Zofran and morphine for his nausea and discomfort. Abdominal x-ray is inconclusive for obstruction. In light of patient's history will obtain CT of the abdomen with p.o. contrast to evaluate for obstruction. Since patient has been here 3-1/2 hours no vomiting passed p.o. challenge will discharge with pain medication and Zofran ODT tablets. ED Disposition - Plan for ED Patient: Disposition: Home or Assisted Living Diagnosis: Nausea and vomiting, Mild dehydration, Chronic renal insufficiency, Anemia, unspecified, Cancer of peritoneum, Ascites, malignant Instructions: VOMITING (5y-Adult), Renal Insufficiency Prescriptions: Oxycodone HCl/Acetaminophen [Percocet 5/325] 1 tab PO Q6H PRN PRN 5 Days #20 tab PRN Reason: Abdominal pain Prescription Printed Ondansetron [Zofran Odt] 4 mg PO Q8H PRN PRN #20 tab PRN Reason: Nausea vomiting Prescription Printed Referrals: Georgi Marquez Chi, MD [Primary Care Provider] - Additional Instructions: Scheduled admission an appointment for the [facility] to have EGD and diagnostic work-up scheduled for Sunday. If the pain medicine does not control your pain or the Zofran oral dissolvable tablets did not alleviate the nausea and vomiting do not hesitate to return.
[2019-07-03] MEDS: morphine 8 MG/ML Syringe IV (21:01)
[2019-07-03] MEDS: 0.9% Normal Saline 1,000 ML 1000 ML IV (21:02)
[2019-07-03] MEDS: Ondansetron 4 MG/2 ML Vial IV (21:02)
[2019-07-03 21:04] LABS: Absolute Lymphocyte Count 1.39 X10^3/uL (0.83-4.51); Absolute Neutrophil Count 3.8 X10^3/uL (2.0-7.7); Basophil# 0.06 X10^3/uL; Eosinophil# 0.09 X10^3/uL; Eosinophils% 1.5 % (0-5); Hematocrit 32.7 % (40-54); Hemoglobin 10.7 g/dL (13.0-16.5); Lymphocyte # 1.39 X10^3/ul (4.0); Lymphocyte % 23.2 % (19-41); Mean Corp Hgb Conc 32.7 g/dL (32-36); Mean Corpuscular Hgb 27.8 pg (27.0-32.0); Mean Corpuscular Volume 84.9 fL (80-94); Mean Platelet Vol. 9.1 fl (6.2-12.0); Monocyte% 11.7 % (0-10); NRBC Flagged by Analyzer 0 % (0-5); Neutrophil # 3.75 X10^3/uL (2.7-7.7); Neutrophil % 62.4 % (47-70); Platelet Count 257 K/mm3 (150-450); RBC Distribution Width CV 15.8 % (11.6-14.6); RBC Distribution Width SD 48.2 fl (35.1-43.9); Red Blood Count 3.85 M/mm3 (4.6-6.2)
[2019-07-03 21:22] LABS: Anion Gap 4 (5-15); BUN 26 mg/dL (7-18); BUN/Creat Ratio 19.3 RATIO (10-20); Calcium,Total 8.5 mg/dL (8.5-10.1); Chloride 106 mmol/L (98-107); Creatinine, Serum 1.35 mg/dL (0.70-1.30); EST Glomerular Filtration Rate 55 mL/min (>60); Est Glom Filt Rate - Afr Amer 66 mL/min (>60); Estimated Creatinine Clearance 51.13 ml/min; Glucose 115 mg/dL (74-106); Potassium 4.1 mmol/L (3.5-5.1); Sodium Level 138 mmol/L (136-145)
--- NOTE | 2019-07-03 21:37 | CT_ITS ---
STUDY: CT ABDOMEN AND PELVIS WITHOUT CONTRAST REASON FOR EXAM: Male, 73 years old. Abdominal distention nausea and vomiting. Recent bladder cancer. RADIATION DOSAGE (If Supplied By Facility): CTDIvol = ( 12.36 ) mGy, DLP = ( 707.36 ) mGycm TECHNIQUE: Transaxial images were obtained from the dome of the diaphragm to the symphysis pubis with oral contrast, and without intravenous contrast. Sagittal and coronal images were reconstructed. Individualized dose optimization techniques were used for this CT. COMPARISON: 05/23/2016. FINDINGS: There are chronic interstitial fibrotic changes of the lung bases. The visualized portions of the heart are within normal limits. There is a markedly small liver, which is new since prior study. Findings could represent development of cirrhosis. No focal liver abnormalities. Normal nonenlarged spleen. Gallbladder has been removed. Atrophy of the pancreas. Normal adrenal glands. Moderate ascites in all quadrants. No acute abnormalities of the kidneys. Tiny nonobstructing stones in the lower pole of the right kidney. 3 mm nonobstructing stone in the lower pole of the left kidney. No hydronephrosis. No definite masses. There is reflux of contrast into the esophagus. There appears to be stomach wall thickening. There are numerous abnormal small bowel loops, primarily jejunum, mildly distended and with a thickened wall consistent with enteritis. More distal bowel loops are normal in appearance and caliber. Poorly evaluated large bowel which is not opacified. Large bowel is normal caliber. Cannot exclude large bowel wall thickening. There is moderate fecal retention. Extensive and widespread nodularity seen throughout the peritoneal surfaces and especially the greater omentum most consistent with peritoneal metastatic disease. Calcified aorta with no evidence for aneurysm. No evidence for retroperitoneal adenopathy. In the pelvis, normal bladder contour. Normal prostate gland. Cannot exclude rectal wall thickening. Normal abdominal wall. There are diffuse degenerative changes of the visualized lumbar spine. CT/Abdomen/Pel W ORAL Cont Only IMPRESSION: Probable cirrhosis. Moderate ascites, likely malignant, with extensive peritoneal and omental seeding suggested. Nonobstructing renal stones. Probable stomach wall thickening, abnormal small bowel consistent with ileus or partial obstruction. Possible thickening of the [place] of small bowel and large bowel. Electronically Signed: Clarke Rai MD at 23:31 EDT , Service support ,
[2019-07-03 23:34] VITALS: BP 106/60; PULSE 71; RESP 16; O2SAT 95
[2019-07-03 23:44] VITALS: BP 106/60; PULSE 71; RESP 16; O2SAT 95
== END 2019-07-03 23:52 | disposition home or self-care (01) ==
PROVIDERS: Emergency Provider Emergency Medicine; Family Provider Family Medicine Geriatric Medicine; PCP Family Medicine Geriatric Medicine
DX: R11.2 Nausea with vomiting, unspecified (principal); E86.0 Dehydration; I12.9 Hypertensive chronic kidney disease with stage 1 through stage 4 chronic kidney disease, or unspecified chronic kidney disease; E11.22 Type 2 diabetes mellitus with diabetic chronic kidney disease; N18.9 Chronic kidney disease, unspecified; R18.0 Malignant ascites; D64.9 Anemia, unspecified; I25.10 Atherosclerotic heart disease of native coronary artery without angina pectoris; C48.2 Malignant neoplasm of peritoneum, unspecified; N20.0 Calculus of kidney; Z85.51 Personal history of malignant neoplasm of bladder; Z87.891 Personal history of nicotine dependence; Z88.1 Allergy status to other antibiotic agents
CPT/HCPCS: 74022; 74176; 80048; 85025; 99284; J7030; A4216; J2405

== ENCOUNTER 2019-07-05 19:21 | Inpatient (IN) | payer MEDICARE, SELFPAY ==
[2019-07-05 19:22] VITALS: BP 115/65; PULSE 70; RESP 18; TEMP 36.6; O2SAT 97; BMI 26.4
--- NOTE | 2019-07-05 20:25 | CT_ITS ---
STUDY: CT ABDOMEN AND PELVIS WITHOUT CONTRAST REASON FOR EXAM: Male, 73 years old. Abdominal pain, nausea vomiting. Bladder cancer, peritoneal cancer. RADIATION DOSAGE (If Supplied By Facility): CTDIvol = ( 13.09 ) mGy, DLP = ( 729.23 ) mGycm TECHNIQUE: Transaxial images were obtained from the dome of the diaphragm to the symphysis pubis without oral contrast, and without intravenous contrast. Sagittal and coronal images were reconstructed. Individualized dose optimization techniques were used for this CT. COMPARISON: 07/03/2019. FINDINGS: Mild fibrotic changes in the lung bases. Heart size is normal. The liver is unremarkable. The gallbladder is surgically absent. The spleen and pancreas are unremarkable. The adrenal glands are normal. 4 mm nonobstructing stone in the lower pole of the left kidney. The kidneys are otherwise unremarkable. No hydronephrosis. The aorta is normal in caliber. Moderate ascites. Nodular peritoneum is consistent with history of metastatic disease. No bowel obstruction. Urinary bladder is unremarkable. Normal abdominal wall. Normal osseous structures. CT/Abdomen/Pelvis without Cont IMPRESSION: 1. Moderate ascites. No change from the prior study. 2. Nodular peritoneum consistent with metastatic disease. No change. 3. Nonobstructing left renal stone. Electronically Signed: Lauren Cornell MD at 21:37 EDT Tel , Service support ,
[2019-07-05 20:26] LABS: Absolute Lymphocyte Count 1.24 X10^3/uL (0.83-4.51); Basophil# 0.05 X10^3/uL; Basophil% 0.7 % (0-1); Eosinophil# 0.05 X10^3/uL; Eosinophils% 0.7 % (0-5); Hematocrit 36.4 % (40-54); Hemoglobin 11.3 g/dL (13.0-16.5); Lymphocyte # 1.24 X10^3/ul (4.0); Lymphocyte % 17.1 % (19-41); Mean Corpuscular Hgb 27.2 pg (27.0-32.0); Mean Corpuscular Volume 87.7 fL (80-94); Mean Platelet Vol. 9.4 fl (6.2-12.0); Monocyte# 0.93 X10^3/uL; Monocyte% 12.8 % (0-10); NRBC Flagged by Analyzer 0 % (0-5); Neutrophil # 4.95 X10^3/uL (2.7-7.7); Neutrophil % 68.3 % (47-70); Platelet Count 324 K/mm3 (150-450); RBC Distribution Width CV 15.9 % (11.6-14.6); RBC Distribution Width SD 50.9 fl (35.1-43.9); Red Blood Count 4.15 M/mm3 (4.6-6.2); White Blood Count 7.3 K/mm3 (4.4-11.0)
--- NOTE | 2019-07-05 20:26 | ED.DCSUM_ITS ---
- ER Visit Summary Date of Service: 07/05/19 Chief Complaint: Abdominal pain with nausea and vomiting History of Present Illness: The patient is a 73 M history of peritoneal carcinomatosis. Diagnosed about 10 days ago. Pending paracentesis and biopsies. Currently he is on Plavix for cardiac stents that that is delayed his more definitive intervention. He also has a history of prior TIA, CABG, CAD with stents. Physical Examination: Older male vital signs are stable and afebrile. HEENT exam unremarkable extremities members. Neck nontender. Lungs clear to auscultation. Heart regular rhythm no murmur. Abdomen is distended. Diffusely tender but no peritoneal signs. Positive bowel sounds. This could be early obstruction or ascites or ileus. Patient is moving all 4 extremities. There is trace edema in his ankles. Neurologically is awake alert with no focal motor deficits. Test Results: CBC is a white count of 7. Hemoglobin 11 which is his baseline. Chemistries normal gap 2. Creatinine 1.26. Liver enzymes normal. Lipase normal. UA normal. Chest x-ray shows chronic changes prior sternotomy no acute abnormality. CT abdomen pelvis without contrast shows ascites. Nodular peritoneum secondary to metastases and a left renal stone. There was no signs of obstruction or perforation. There is also increased stool. Emergency Department Course and Treatment: Patient treated with IV fluids, mo rphine and Zofran. Imaging and labs to be obtained. Treatment Plan: Repeat exam patient's resting comfortably. He myself and his family discussed his test results. They said he just not doing well at home. They can control the pain. Due to his failure to thrive, pain control and overall condition and speak to the hospitalist about admission for further evaluation and social services coordinator consultation. I also discussed with Dr. Tello on- call for oncology is comfortable with the patient being admitted here and having further evaluation at this facility. Disposition: Admit Impression: Acute abdominal pain Nausea and vomiting Failure to thrive History of abdominal peritoneal carcinomatosis This note was generated with PlanStan dictation software. It may contain incorrect words, spelling, and punctuation that were not noted in review of the chart prior to signing ED Disposition - Plan for ED Patient: Referrals: Georgi Marquez Chi, MD [Primary Care Provider] -
--- NOTE | 2019-07-05 20:35 | RAD_ITS ---
STUDY: X-RAY CHEST REASON FOR EXAM: Male, 73 years old. Nausea and vomiting. TECHNIQUE: Single AP portable view of the chest. COMPARISON: 07/03/2019. FINDINGS: Lungs moderate lung volumes. No infiltrates are seen. Normal size heart. Median sternotomy sutures are seen. Normal mediastinum and artemio. Normal visualized pulmonary arteries. Normal visualized aortic arch and descending thoracic aorta. Normal visualized thoracic spine. Normal visualized ribs, clavicles, and shoulders. There is no demonstrated abnormality of the visualized soft tissue structures of the upper abdomen. RAD/Chest 1 View (Portable) IMPRESSION: Incomplete expansion of the lungs. No acute abnormalities. Electronically Signed: Clarke Rai MD at 21:42 EDT , Service support ,
[2019-07-05] MEDS: 0.9% Normal Saline 1,000 ML 1000 ML IV (20:41)
[2019-07-05] MEDS: Morphine 4 MG/ML Syringe IV ×3 (20:41→23:54)
[2019-07-05] MEDS: Ondansetron 4 MG/2 ML Vial IV (20:41)
[2019-07-05 20:49] LABS: Anion Gap 2 (5-15); BUN 19 mg/dL (7-18); BUN/Creat Ratio 15.1 RATIO (10-20); Chloride 107 mmol/L (98-107); Creatinine, Serum 1.26 mg/dL (0.70-1.30); EST Glomerular Filtration Rate 59 mL/min (>60); Est Glom Filt Rate - Afr Amer 72 mL/min (>60); Estimated Creatinine Clearance 54.78 ml/min; Glucose 92 mg/dL (74-106); Potassium 5.1 mmol/L (3.5-5.1); Sodium Level 138 mmol/L (136-145)
[2019-07-05 21:00] LABS: AST(SGOT) 25 U/L (15-37); Alanine Aminotransfer ALT/SGPT 18 U/L (16-61); Albumin, Serum 2.9 g/dL (3.2-5.0); Alkaline Phosphatase 113 U/L (45-117); Bilirubin, Direct 0.13 mg/dL (0.00-0.30); Globulin 4.2 g/dL (2.2-4.2); Lipase 48 U/L (73-393); Protein, Total 7.1 g/dL (6.4-8.2)
[2019-07-05 21:40] VITALS: BP 129/70; PULSE 69; RESP 20; O2SAT 94
[2019-07-05 23:02] LABS: Bacteria 0 SEEN /hpf (None Seen); Red Blood Cells-Urine 0 SEEN /hpf (0-5); Squamous Epithelial Cells - UA 0 SEEN /hpf (0-5)
[2019-07-05 23:04] LABS: Color, Urine Yellow (Yellow); Glucose, Dipstick Normal (Normal); Ketone-Dipstick 5 mg/dl (Negative); Leukocyte Esterase-Dipstick Negative /ul (Negative); Nitrite-Dipstick Negative (Negative); Occult Blood-Urine Negative /ul (Negative); Protein-Dipstick Negative (Negative); Specific Gravity, Urine 1.015 (1.002-1.030); Urine Bilirubin Dipstick Negative (Negative); Urine Clarity Clear (Clear); Urine Urobilinogen Normal (Normal)
[2019-07-05 23:10] LABS: Mucous, Urine RARE /hpf (<or=2+)
[2019-07-05 23:12] LABS: White Blood Cells 0-5 SEEN /hpf (0-5)
[2019-07-05 23:13] LABS: Transitional Epithelial - Ur 0-5 SEEN /hpf (0-5)
[2019-07-05 23:36] VITALS: BP 110/64; PULSE 75; RESP 18; O2SAT 92
--- NOTE | 2019-07-05 23:42 | PCM.HP.STD ---
Problem List (1) Intractable abdominal pain Status: Acute (2) Right shoulder pain Status: Acute Qualifiers: Chronicity: acute Qualified Code(s): M25.511 - Pain in right shoulder (3) Hyperlipidemia Status: Chronic Qualifiers: Hyperlipidemia type: unspecified Qualified Code(s): E78.5 - Hyperlipidemia, unspecified (4) Bilateral lower extremity edema Status: Chronic (5) Primary cancer of peritoneum Status: Chronic (6) History of bladder cancer Status: Chronic (7) Diabetes Status: Chronic Qualifiers: Diabetes mellitus type: type 2 Diabetes mellitus long term care phlebotomist insulin use: with long term care phlebotomist use Diabetes mellitus complication status: with other specified complication Qualified Code(s): E11.69 - Type 2 diabetes mellitus with other specified complication; 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 transplanted heart: unspecified whether [place] or transplanted heart Associated angina: angina presence unspecified Qualified Code(s): I25.10 - Atherosclerotic heart disease of [place] coronary artery without angina pectoris History of Present Illness Date of Admission: 07/05/19 Chief Complaint: Abdominal pain, N/V The patient is a 73 y/o M w/ PMHx: Hypothyroidism, peritoneal Carcinomatosis Dx 2 weeks prior to current presentation w/ pending paracentesis and Bx planned secondary to plavix usage, Hx Bladder CA, TIA, Chronic Anemia, CAD s/p CABG x4 and PCI, Diabetes mellitus type II, HTN, HLD, Chronic BL LE Lymphedmea with history of lower extremity ulcers recently evaluated in the ED on 07/03/19 with history at that time of abdominal distention, nausea, emesis with decreased stool output with increased malignant fatigue with CT imaging at that time with no evidence of obstruction with improvement of complaints with medications with discharge with planned [facility] evaluation for EGD and diagnostic the following Sunday who now re-presents to the [facility] ED on 07/05/19 with history of recurrent ongoing intractable abdominal pain described as mild to severe rating up to a 10 at times, sharp and dull with distention with associated nausea and emesis with failure to thrive with additional history of ongoing right shoulder pain more severe over the last 24 to 48 hours and 10 out of 10, sharp in nature, over the last hour in the ED, worse with palpation of certain regions and now in his right upper blade region as well into the left side of the neck. He notes that for many weeks he has been using a pain patch and occasionally he does put pressure on the region and this does help relieve some of the discomfort. He denies any paresthesias or focal weakness to this extremity.. In the ED included T 97.9, heart rate 70, BP 115/65, respiratory rate 18, 97% on room air, CBC with WBC 7.3, hemoglobin 11.3, platelets 324 without evidence left shift, CMP with BUN/creatinine 19/1.26, lipase 48, urinalysis unremarkable, specific gravity only mildly elevated 1.015, CT abdomen and pelvis with moderate ascites, nodular peritoneal peritoneum consistent with metastatic disease, nonobstructing left renal stone all unchanged from prior study, chest x-ray with no acute cardiopulmonary findings. In the ED patient ministered normal saline, Zofran, morphine. Dr. Arnold, oncology was consulted per ED physician and amenable to patient remaining at [facility] for his evaluation work-up. He requested that Plavix be held and family and patient actually confirms that the last dose he had taken was this prior Sunday and he has not since for planned upcoming intervention, general surgeon be consulted for EGD as well as planned upcoming paracentesis. Past Medical History Past Medical History (Chronic Problems): Chronic Problems Bilateral lower extremity edema (Chronic) Primary cancer of peritoneum (Chronic) History of bladder cancer (Chronic) Hyperlipidemia (Chronic) Diabetes (Chronic) Hypertension (Chronic) CAD (coronary artery disease) (Chronic) Allergies ciprofloxacin HCl [From Cipro] Adverse Reaction (Verified 07/05/19 19:24) Pain in joints Home Medications: Ambulatory Orders Medication Instructions Recorded Levothyroxine [Synthroid] 25 mcg PO DAILY 09/09/13 Metoprolol Tartrate [Lopressor 25 mg PO BID 09/09/13 (beta gary)] Rosuvastatin Calcium [Crestor] 20 mg PO QHS 09/09/13 Tamsulosin HCl [Flomax] 0.4 mg PO DAILY 09/09/13 ALPRAZolam [Xanax] 0.25 mg PO QHS PRN 04/12/16 Aspirin [Aspirin, Baby] 81 mg PO DAILY@0800 11/24/16 Clopidogrel Bisulfate [Plavix] 75 mg PO DAILY 11/24/16 Finasteride 1 mg PO DAILY 11/24/16 Insulin Degludec [Tresiba 60 unit SQ DAILY 11/24/16 Flextouch U-100] Pantoprazole Sodium [Protonix] 20 mg PO DAILY 11/24/16 Glimepiride [Amaryl] 4 mg PO BID 07/03/19 Lisinopril [Zestril] 20 mg PO BID 07/03/19 Ondansetron [Zofran Odt] 4 mg PO Q8H PRN PRN #20 tab 07/03/19 Oxycodone HCl/Acetaminophen 1 tab PO Q6H PRN PRN 5 Days #20 tab 07/03/19 [Percocet 5/325] Surgical History: - - CABG x4, PCI x 8-9, cholecystectomy, bladder cancer surgery, cystoscopy with lithotripsy. Psychiatric History: Anxiety Lives: Alone Smoking Status: Former smoker - Patient quit cigarette tobacco usage in 1983 with prior to this 1 pack/day cigarette tobacco usage. Tobacco Use: Non-smoker Alcohol: None Drugs: None - *Family History Paternal History Items: Diabetes Maternal History Items: Heart Disease Review of Systems Constitutional: Reports: Anorexia, Malaise, Weakness, Fatigue. Denies: Chills, Fever, Weight Change HEENT: Reports: Difficulty Swallowing. Denies: Head Aches, Sinus Congestion, Sinus Drainage Cardiovascular: Denies: Chest Pain, Palpitations Respiratory: Denies: Cough, Shortness of breath at rest, Sputum production Gastrointestinal: Reports: Abdominal Pain, Nausea, Vomiting, - - Abdominal distention and increasing girth. Genitourinary: Denies: Dysuria Musculoskeletal: Reports: Arm Pain, Back Pain, Neck Pain, Shoulder Pain. Denies: Joint Pain, Joint Tenderness Skin: Denies: Rash, Wounds Neurological: Denies: Numbness, Tingling, Focal weakness Psychiatric: Reports: Anxiety. Denies: Depression, Homicidal Ideations, Suicidal Ideations Hematologic/ Lymphatic: Reports: Anemia. Denies: Easy Bruising, Easy Bleeding VTE Information - Inpt Only VTE Present on Admission: No VTE Mechan Device Prophylaxis: SCD's VTE Pharm Prophylaxis ordered?: Yes Patient Problems: Active and Suspected Problems Intractable abdominal pain (Acute) Right shoulder pain (Acute) Subjective: Laying in the ED bed, uncomfortable appearing, fatigued. Objective: Physical Examination: General: awake, alert, oriented x 3 and cooperative, laying in the ED bed, in no apparent distress but does note ongoing right shoulder, constant, severe 10 out of 10 pain as well as ongoing abdominal discomfort. Skin: normal color, turgor, no icterus, cyanosis. HEENT: AT/NC, EOMI, PERRLA, dry MM, no carotid bruits or JVD noted. Lungs: CTA bilaterally, moderate effort, mild decrease BL bases, no rales, ronchi or wheezing. Heart: Regular rate and rhythm; no gallop, rub audible. Abdomen: soft, primarily right upper and lower quadrant discomfort with palpation, no rebound or guarding, notably distended with ascites evident, distant decreased bowel sounds, difficult to assess HSM secondary to acute presentation and distention with ascites and abdominal pain. Extremities: no cyanosis, clubbing, chronic bilateral lower extremity ankle to mid denis edema, discomfort with palpation of the right shoulder, primarily axilla. Neurological: patient awake, alert, oriented x 3; cognitive function intact; pupils equally reactive to light and accomodation; cranial nerves II-XII grossly normal, moving all 4 extremities, no focal deficits, strength severely global decrease secondary to acute presentation. Psychiatric: affect appears fatigued, mildly flat, no acute evidence of depressive or anxiety feelings. - Physical Exam Vital Signs Temp Pulse Resp BP Pulse Ox 97.9 F 75 18 110/64 92 07/05/19 19:22 07/05/19 23:36 07/05/19 23:36 07/05/19 23:36 07/05/19 23:36 Oxygen Delivery Method Room Air Weight: 190 lb Body Mass Index (BMI) 26.4 Finger Stick Blood Glucose 106 Intake and Output for Last 24 Hours 07/03/19 07/04/19 07/05/19 23:59 23:59 23:59 Intake Total 1000 / 1000 Balance 1000 / 1000 Laboratory Tests Past 24 Hrs 07/05/19 07/05/19 07/05/19 19:40 19:40 19:40 WBC 7.3 RBC 4.15 L Hgb 11.3 L Hct 36.4 L MCV 87.7 MCH 27.2 MCHC 31.0 L RDW Std Deviation 50.9 H RDW Coeff of Ashley 15.9 H Plt Count 324 MPV 9.4 Immature Gran % (Auto) 0.400 Neut % (Auto) 68.3 Lymph % (Auto) 17.1 L [place] % (Auto) 12.8 H Eos % (Auto) 0.7 Baso % (Auto) 0.7 Absolute Neuts (auto) 5.0 Absolute Lymphs (auto) 1.24 Nucleated RBC % 0 Sodium 138 Potassium 5.1 Chloride 107 Carbon Dioxide 29.0 Anion Gap 2 L BUN 19 H Creatinine 1.26 Estim Creat Clear Calc 54.78 Est GFR (MDRD) Af Amer 72 Est GFR (MDRD) Non-Af 59 L BUN/Creatinine Ratio 15.1 Glucose 92 Calcium 9.0 Total Bilirubin 0.50 Direct Bilirubin 0.13 AST 25 ALT 18 Alkaline Phosphatase 113 Total Protein 7.1 Albumin 2.9 L Globulin 4.2 Lipase 48 L Urine Color Urine Clarity Urine pH Ur Specific [place] Urine Protein Urine Glucose (UA) Urine Ketones Urine Occult Blood Urine Nitrite Urine Bilirubin Urine Urobilinogen Ur Leukocyte Esterase Urine RBC Urine WBC Ur Squamous Epith Cells Ur Transition Epith Cell Urine Bacteria Urine Mucus 07/05/19 22:55 WBC RBC Hgb Hct MCV MCH MCHC RDW Std Deviation RDW Coeff of Ashley Plt Count MPV Immature Gran % (Auto) Neut % (Auto) Lymph % (Auto) [place] % (Auto) Eos % (Auto) Baso % (Auto) Absolute Neuts (auto) Absolute Lymphs (auto) Nucleated RBC % Sodium Potassium Chloride Carbon Dioxide Anion Gap BUN Creatinine Estim Creat Clear Calc Est GFR (MDRD) Af Amer Est GFR (MDRD) Non-Af BUN/Creatinine Ratio Glucose Calcium Total Bilirubin Direct Bilirubin AST ALT Alkaline Phosphatase Total Protein Albumin Globulin Lipase Urine Color Yellow Urine Clarity Clear Urine pH 6.0 Ur Specific [place] 1.015 Urine Protein Negative Urine Glucose (UA) Normal Urine Ketones 5 H Urine Occult Blood Negative Urine Nitrite Negative Urine Bilirubin Negative Urine Urobilinogen Normal Ur Leukocyte Esterase Negative Urine RBC 0 SEEN Urine WBC 0-5 SEEN Ur Squamous Epith Cells 0 SEEN Ur Transition Epith Cell 0-5 SEEN Urine Bacteria 0 SEEN Urine Mucus RARE Assessment/Plan All Active Problems Ulcer of right lower extremity (Acute) Intractable abdominal pain (Acute) Right shoulder pain (Acute) The patient is a 73 y/o M w/ PMHx: Hypothyroidism, peritoneal Carcinomatosis Dx 2 weeks prior to current presentation w/ pending paracentesis and Bx planned secondary to plavix usage, Hx Bladder CA, TIA, Chronic Anemia, CAD s/p CABG x 4 and PCI, Diabetes mellitus type II, HTN, HLD, Chronic BL LE Lymphedmea, recent ED 07/03/19 evaluation w/ c/o abdominal distention, N/V with CT A/P w/ no evidence of obstruction w/ evident peritoneal cancer with initially improvement of complaints with medications w/ D/C who now re-presents to the [facility] ED on 07/05/19 with history of recurrent ongoing intractable abdominal pain, nausea, emesis, poor intake ability as well as ongoing right shoulder pain, worsened upon ED presentation. (1) Intractable abdominal pain, nausea and emesis secondary to peritoneal carcinomatosis: We will admit to the medical surgical floor, maintain on IV fluids, allow clear liquids trial with ADAT, aggressive antiemetic and pain regimen, scheduled toradol, add gabapentin, scheduled tylenol to encompass multiple modalities, will continue to hold Plavix therapy given Dr. Arnold willingness to have evaluation and diagnostic procedures performed here, request consultation with Dr. Kumar for EGD, will need to also consider upcoming biopsy and paracentesis on Sunday but will await Dr. Arnold, given debility will request CM, PT and OT evaluations for discharge planning, additionally speech therapy as patient alluding to vague dysphagia. Nutrition consulted for recommendations. Magnesium and phosphorus recommended with supplementation as needed. (2) Intractable R Shoulder Pain: Given ongoing for several weeks, reproducible with certain region palpation, improved w/ pressure by self unclear specific etiology, plain film chest with no overt finding, given #1 concern related, hold on further imaging to avoid duplication pending Oncology evaluation. Will obtain EKG, cardiac enzyme series given CAD history off plavix since Sunday. (3) CAD: Status post CABG prior, currently maintained on aspirin, will continue to hold Plavix for upcoming diagnostic procedures, continue metoprolol, statin, ELMA inhibitor therapies. (4) Hypertension: Continue home regimen including lisinopril, metoprolol with hold parameters, PRN hydralazine. (5) Hyperlipidemia: Continue home statin regimen. (6) Diabetes mellitus type II: Hold oral home regimen, continue home insulin regimen, allow clears once nausea and emesis improved if able to tolerate with transition once improved to ADA diet, accu checks w/ ISS. 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 (8) Hypothyroidism: Continue home synthroid regimen. (9) BPH: Continue home Flomax regimen. (10) DVT Prophylaxis: SCDs, lovenox. (11) CODE status: Daughter is present and healthcare power of assistant prosecuting attorney, patient does have living will. Discussed CODE status at length including difference between FULL code, DNR-CCA and DNR-CC status. Following discussions about the differences in these status, requested DNR-CCA, no intubation status. Patient does have a niece who lives locally as his daughter does live out of town, Vanessa Teran ([phone]). Advanced Care Planning Face to Face Time: 17 minutes. Code Visit Inpatient E&M: 05685 Init Hosp L3 Procedures: 78765 Advncd Care Plan 30 Min
[2019-07-06] VITALS (9 sets, daily range): BP systolic 110–118; BP diastolic 44–73; PULSE 71–88; RESP 14–20; TEMP 36.4–37.2; O2SAT 92–95; BMI 26.4
[2019-07-06] MEDS: 0.9% Normal Saline 1,000 ML 100 ML IV ×2 (01:34→10:22)
[2019-07-06] MEDS: Ketorolac 30 MG/ML Syringe IV ×4 (01:35→21:04)
[2019-07-06] MEDS: proMETHazine 25 MG/ML Syringe 6.25 MG IV ×2 (01:46→10:25)
[2019-07-06] MEDS: 0.9% NaCl Peripheral Flush Adult/Peds IV ×8 (02:06→21:06)
[2019-07-06 02:09] LABS: Glucose 64 mg/dL (74-106)
[2019-07-06 02:11] LABS: Bedside Glucose 61 mg/dL (70-110)
[2019-07-06 02:11] LABS: Bedside Glucose 42 mg/dL (70-110)
[2019-07-06 02:13] LABS: Magnesium 2.1 mg/dL (1.6-2.6); Phosphorus 2.6 mg/dL (2.5-4.9)
[2019-07-06] MEDS: Dextrose 50%-Water 25 GM/50 ML DISP.SYRIN IV (02:17)
[2019-07-06 04:40] LABS: Absolute Lymphocyte Count 1.22 X10^3/uL (0.83-4.51); Absolute Neutrophil Count 3.4 X10^3/uL (2.0-7.7); Basophil# 0.05 X10^3/uL; Basophil% 0.9 % (0-1); Eosinophil# 0.05 X10^3/uL; Eosinophils% 0.9 % (0-5); Hemoglobin 9.3 g/dL (13.0-16.5); Lymphocyte # 1.22 X10^3/ul (4.0); Lymphocyte % 22.6 % (19-41); Mean Corpuscular Hgb 27.4 pg (27.0-32.0); Mean Corpuscular Volume 88.5 fL (80-94); Mean Platelet Vol. 8.9 fl (6.2-12.0); Monocyte% 12.9 % (0-10); NRBC Flagged by Analyzer 0 % (0-5); Neutrophil # 3.37 X10^3/uL (2.7-7.7); Neutrophil % 62.3 % (47-70); Platelet Count 244 K/mm3 (150-450); RBC Distribution Width SD 52.1 fl (35.1-43.9); Red Blood Count 3.39 M/mm3 (4.6-6.2); White Blood Count 5.4 K/mm3 (4.4-11.0)
[2019-07-06 04:48] LABS: International Normalized Ratio 1.2
[2019-07-06 04:49] LABS: Partial Thromboplast Time 30.8 Seconds (24.1-36.2)
[2019-07-06 05:10] LABS: ALB/GLOB Ratio 0.6 RATIO (0.9-2.4); AST(SGOT) 24 U/L (15-37); Alanine Aminotransfer ALT/SGPT 15 U/L (16-61); Albumin, Serum 2.2 g/dL (3.2-5.0); Alkaline Phosphatase 93 U/L (45-117); Anion Gap 5 (5-15); BUN 18 mg/dL (7-18); BUN/Creat Ratio 15.4 RATIO (10-20); Calcium,Total 7.9 mg/dL (8.5-10.1); Chloride 110 mmol/L (98-107); Creatinine, Serum 1.17 mg/dL (0.70-1.30); EST Glomerular Filtration Rate 65 mL/min (>60); Est Glom Filt Rate - Afr Amer 78 mL/min (>60); Globulin 3.4 g/dL (2.2-4.2); Glucose 132 mg/dL (74-106); Potassium 4.7 mmol/L (3.5-5.1); Protein, Total 5.6 g/dL (6.4-8.2); Sodium Level 142 mmol/L (136-145)
--- NOTE | 2019-07-06 05:55 | EKG12_ITS ---
Test Reason : AM EKG Blood Pressure : / mmHG Vent. Rate : 069 BPM Atrial Rate : 069 BPM P-R Int : 174 ms QRS Dur : 096 ms QT Int : 424 ms P-R-T Axes : 031 025 002 degrees QTc Int : 454 ms Normal sinus rhythm Nonspecific T wave abnormality Abnormal ECG Confirmed by CRIS HARE, DEREK ([id number]), book editor SAIGE BEATTY ([id number]) on 07/09/2019 2:29:51 PM Referred By: BLAISE Confirmed By:DEREK LYNCH MD
[2019-07-06] MEDS: Levothyroxine 25 MCG TABLET PO (06:11)
[2019-07-06] MEDS: Acetaminophen 500 MG Tablet 1000 MG PO ×2 (06:11→21:04)
[2019-07-06 06:31] LABS: Bedside Glucose 98 mg/dL (70-110)
[2019-07-06] MEDS: Aspirin 81 MG TAB.CHEW PO (08:23)
[2019-07-06] MEDS: Gabapentin 100 MG Capsule PO ×2 (08:23→12:39)
[2019-07-06] MEDS: Ensure Clear 120 ML Liquid PO ×4 (08:23→21:03)
[2019-07-06] MEDS: HYDROmorphone 0.5 MG/0.5 ML SYRINGE IV ×2 (08:24→12:34)
--- NOTE | 2019-07-06 08:25 | PCM.CONS.B ---
Problem List (1) Primary cancer of peritoneum Status: Suspected (2) Intractable abdominal pain Status: Acute (3) Malignant ascites Status: Acute - Consult Date of Consult: 07/06/[address] Eunice Monson regarding patient with carcinomatosis, suspect metastatic disease with abdominal pain. My final recommendation will be communicated by electronic medical records and also to the patient. - Reason for Consult Chief complaints: Abdominal distention, abdominal pain, decreased appetite. History of Present Illness Date of Admission: 07/05/19 Chief Complaint: Abdominal pain, N/V The patient is a 73 y/o M w/ PMHx: Hypothyroidism, peritoneal Carcinomatosis Dx 2 weeks prior to current presentation w/ pending paracentesis and Bx planned secondary to plavix usage, Hx superficial bladder CA-additional treatment, followed by serial cystoscopy, TIA-a year ago, Chronic Anemia, CAD s/p CABG x4 and PCI, Diabetes mellitus type II, HTN, HLD, Chronic BL LE Lymphedmea with history of lower extremity ulcers recently evaluated in the ED on 07/03/19 with history at that time with history of 6 to 8 weeks of abdominal distention, nausea, emesis with decreased stool output with increased fatigue. Patient had abdominal distention and pain and a CT imaging at that time with no evidence of obstruction, but there were abdominal masses consistent with carcinomatosis and ascites. He discharge with planned [facility] evaluation for EGD /endoscopy and diagnostic the following Sunday who now re-presents to the [facility] ED on 07/05/19 with history of recurrent ongoing intractable abdominal pain described as mild to severe rating up to a 10 at times, sharp and dull with distention with associated nausea and emesis with failure to thrive with additional history of ongoing right shoulder pain more severe over the last 24 to 48 hours and 10 out of 10, sharp in nature, over the last hour in the ED, worse with palpation of certain regions. In the ED included T 97.9, heart rate 70, BP 115/65, respiratory rate 18, 97% on room air, CBC with WBC 7.3, hemoglobin 11.3, platelets 324 without evidence left shift, CMP with BUN/creatinine 19/1.26, lipase 48, urinalysis unremarkable, specific gravity only mildly elevated 1.015. Repeat CT abdomen and pelvis with moderate ascites, nodular peritoneal peritoneum consistent with metastatic disease, nonobstructing left renal stone all unchanged from prior study, chest x-ray with no acute cardiopulmonary findings. In the ED patient ministered normal saline, Zofran, morphine. He held his Plavix, and family and patient actually confirms that the last dose he had taken was this prior Sunday for planned upcoming intervention, general surgeon was consulted for EGD as well as planned upcoming paracentesis. Patient living independently, but he was having more difficulty in the last 4 weeks. Both his instrument of activity daily living, having more difficulty doing things independently. His daughter works at the [employer] lives in [facility] and recommend Dr. Waters to be his oncologist. Past Medical History Past Medical History (Chronic Problems): Chronic Problems Bilateral lower extremity edema (Chronic) Primary cancer of peritoneum (Chronic) History of bladder cancer (Chronic) Hyperlipidemia (Chronic) Diabetes (Chronic) Hypertension (Chronic) CAD (coronary artery disease) (Chronic) Allergies ciprofloxacin HCl [From Cipro] Adverse Reaction (Verified 07/05/19 19:24) Pain in joints Home Medications: Ambulatory Orders Medication Instructions Recorded Levothyroxine [Synthroid] 25 mcg PO DAILY 09/09/13 Metoprolol Tartrate [Lopressor 25 mg PO BID 09/09/13 (beta gary)] Rosuvastatin Calcium [Crestor] 20 mg PO QHS 09/09/13 Tamsulosin HCl [Flomax] 0.4 mg PO DAILY 09/09/13 ALPRAZolam [Xanax] 0.25 mg PO QHS PRN 04/12/16 Aspirin [Aspirin, Baby] 81 mg PO DAILY@0800 11/24/16 Clopidogrel Bisulfate [Plavix] 75 mg PO DAILY 11/24/16 Finasteride 1 mg PO DAILY 11/24/16 Insulin Degludec [Tresiba 60 unit SQ DAILY 11/24/16 Flextouch U-100] Pantoprazole Sodium [Protonix] 20 mg PO DAILY 11/24/16 Glimepiride [Amaryl] 4 mg PO BID 07/03/19 Lisinopril [Zestril] 20 mg PO BID 07/03/19 Ondansetron [Zofran Odt] 4 mg PO Q8H PRN PRN #20 tab 07/03/19 Oxycodone HCl/Acetaminophen 1 tab PO Q6H PRN PRN 5 Days #20 tab 07/03/19 [Percocet 5/325] Surgical History: - - CABG x4, PCI x 8-9, cholecystectomy, bladder cancer surgery, cystoscopy with lithotripsy. Psychiatric History: Anxiety Lives: Alone Smoking Status: Former smoker - Patient quit cigarette tobacco usage in 1983 with prior to this 1 pack/day cigarette tobacco usage. Tobacco Use: Non-smoker Alcohol: None Drugs: None - *Family History Paternal History Items: Diabetes Maternal History Items: Heart Disease Review of Systems Constitutional: Reports: Anorexia, Malaise, Weakness, Fatigue. Denies: Chills, Fever, Weight Change HEENT: Reports: Difficulty Swallowing. Denies: Head Aches, Sinus Congestion, Sinus Drainage Cardiovascular: Denies: Chest Pain, Palpitations Respiratory: Denies: Cough, Shortness of breath at rest, Sputum production Gastrointestinal: Reports: Abdominal Pain, Nausea, Vomiting, - - Abdominal distention and increasing girth. Genitourinary: Denies: Dysuria Musculoskeletal: Reports: Arm Pain, Back Pain, Neck Pain, Shoulder Pain. Denies: Joint Pain, Joint Tenderness Skin: Denies: Rash, Wounds Neurological: Denies: Numbness, Tingling, Focal weakness Psychiatric: Reports: Anxiety. Denies: Depression, Homicidal Ideations, Suicidal Ideations Hematologic/ Lymphatic: Reports: Anemia. Denies: Easy Bruising, Easy Bleeding VTE Information - Inpt Only VTE Present on Admission: No VTE Mechan Device Prophylaxis: SCD's VTE Pharm Prophylaxis ordered?: Yes Patient Problems: Active and Suspected Problems Intractable abdominal pain (Acute) Right shoulder pain (Acute) Subjective: Laying in the ED bed, uncomfortable appearing, fatigued. Objective: Physical Examination: General: awake, alert, oriented x 3 and cooperative, laying in the ED bed, in no apparent distress but does note ongoing right shoulder, constant, severe 10 out of 10 pain as well as ongoing abdominal discomfort. Skin: normal color, turgor, no icterus, cyanosis. HEENT: AT/NC, EOMI, PERRLA, dry MM, no carotid bruits or JVD noted. Lungs: CTA bilaterally, moderate effort, mild decrease BL bases, no rales, ronchi or wheezing. Heart: Regular rate and rhythm; no gallop, rub audible. Abdomen: soft, primarily right upper and lower quadrant discomfort with palpation, no rebound or guarding, notably distended with ascites evident, distant decreased bowel sounds, difficult to assess HSM secondary to acute presentation and distention with ascites and abdominal pain. Extremities: no cyanosis, clubbing, chronic bilateral lower extremity ankle to mid denis edema, discomfort with palpation of the right shoulder, primarily axilla. Neurological: patient awake, alert, oriented x 3; cognitive function intact; pupils equally reactive to light and accomodation; cranial nerves II-XII grossly normal, moving all 4 extremities, no focal deficits, strength severely global decrease secondary to acute presentation. Psychiatric: affect appears fatigued, mildly flat, no acute evidence of depressive or anxiety feelings. - Physical Exam Vital Signs Temp Pulse Resp BP Pulse Ox 97.9 F 75 18 110/64 92 07/05/19 19:22 07/05/19 23:36 07/05/19 23:36 07/05/19 23:36 07/05/19 23:36 Oxygen Delivery Method Room Air Weight: 190 lb Body Mass Index (BMI) 26.4 Finger Stick Blood Glucose 106 Intake and Output for Last 24 Hours 07/03/19 07/04/19 07/05/19 23:59 23:59 23:59 Intake Total 1000 / 1000 Balance 1000 / 1000 Laboratory Tests Past 24 Hrs 07/05/19 07/05/19 07/05/19 19:40 19:40 19:40 WBC 7.3 RBC 4.15 L Hgb 11.3 L Hct 36.4 L MCV 87.7 MCH 27.2 MCHC 31.0 L RDW Std Deviation 50.9 H RDW Coeff of Ashley 15.9 H Plt Count 324 MPV 9.4 Immature Gran % (Auto) 0.400 Neut % (Auto) 68.3 Lymph % (Auto) 17.1 L [place] % (Auto) 12.8 H Eos % (Auto) 0.7 Baso % (Auto) 0.7 Absolute Neuts (auto) 5.0 Absolute Lymphs (auto) 1.24 Nucleated RBC % 0 Sodium 138 Potassium 5.1 Chloride 107 Carbon Dioxide 29.0 Anion Gap 2 L BUN 19 H Creatinine 1.26 Estim Creat Clear Calc 54.78 Est GFR (MDRD) Af Amer 72 Est GFR (MDRD) Non-Af 59 L BUN/Creatinine Ratio 15.1 Glucose 92 Calcium 9.0 Total Bilirubin 0.50 Direct Bilirubin 0.13 AST 25 ALT 18 Alkaline Phosphatase 113 Total Protein 7.1 Albumin 2.9 L Globulin 4.2 Lipase 48 L Urine Color Urine Clarity Urine pH Ur Specific [place] Urine Protein Urine Glucose (UA) Urine Ketones Urine Occult Blood Urine Nitrite Urine Bilirubin Urine Urobilinogen Ur Leukocyte Esterase Urine RBC Urine WBC Ur Squamous Epith Cells Ur Transition Epith Cell Urine Bacteria Urine Mucus 07/05/19 22:55 WBC RBC Hgb Hct MCV MCH MCHC RDW Std Deviation RDW Coeff of Ashley Plt Count MPV Immature Gran % (Auto) Neut % (Auto) Lymph % (Auto) [place] % (Auto) Eos % (Auto) Baso % (Auto) Absolute Neuts (auto) Absolute Lymphs (auto) Nucleated RBC % Sodium Potassium Chloride Carbon Dioxide Anion Gap BUN Creatinine Estim Creat Clear Calc Est GFR (MDRD) Af Amer Est GFR (MDRD) Non-Af BUN/Creatinine Ratio Glucose Calcium Total Bilirubin Direct Bilirubin AST ALT Alkaline Phosphatase Total Protein Albumin Globulin Lipase Urine Color Yellow Urine Clarity Clear Urine pH 6.0 Ur Specific [place] 1.015 Urine Protein Negative Urine Glucose (UA) Normal Urine Ketones 5 H Urine Occult Blood Negative Urine Nitrite Negative Urine Bilirubin Negative Urine Urobilinogen Normal Ur Leukocyte Esterase Negative Urine RBC 0 SEEN Urine WBC 0-5 SEEN Ur Squamous Epith Cells 0 SEEN Ur Transition Epith Cell 0-5 SEEN Urine Bacteria 0 SEEN Urine Mucus RARE Assessment/Plan All Active Problems The patient is a 73 y/o M w/ PMHx: Hypothyroidism, peritoneal Carcinomatosis Dx 4-6 weeks prior to current presentation w/ pending paracentesis and Bx planned secondary to plavix usage, also has a Hx non- invasive bladder CA, TIA, Chronic Anemia, CAD s/p CABG x 4 and PCI, Diabetes mellitus type II, HTN, HLD, Chronic BL LE Lymphedmea. (1) Intractable abdominal pain, nausea and emesis secondary to peritoneal carcinomatosis: -Likely primary include: upper GI, small bowel and appendix -Agree with current pain and symptom management. Plan: -CEA level and CA-19-9 level today. -Hold aspirin and Plavix for diagnostic paracentesis and biopsy of omental mass next week. -Consult Dr. Shah for upper and lower endoscopy -CT chest for complete staging. -Once his diagnosis is confirmed, then Dr. Waters will discuss palliative chemotherapy with possible FOLFOX regimen. (2) significant comorbidity, severe malnutrition & decreased iADL from above: Plan: -Consult palliative care for pain and symptoms management ( nausea, anorexia, fatigue ) from peritoneal carcinomatosis cc: Dr. Jamie Waters; Dr. Georgi Marquez; Dr. Eunice Monson
[2019-07-06] MEDS: Lisinopril 20 MG Tablet PO ×2 (08:56→21:03)
[2019-07-06] MEDS: Metoprolol Tartrate 25 MG Tablet PO ×2 (08:56→21:03)
[2019-07-06] MEDS: Finasteride 5 MG Tablet PO (08:56)
[2019-07-06] MEDS: Tamsulosin HCl 0.4 MG Capsule PO (08:56)
[2019-07-06] MEDS: Enoxaparin 40 MG/0.4 ML Syringe SC (08:57)
--- NOTE | 2019-07-06 09:09 | PCM.PN.HOSP ---
Patient Problems: Active and Suspected Problems Intractable abdominal pain (Acute) Right shoulder pain (Acute) Malignant ascites (Acute) Subjective: Patient was admitted with a complaint of abdominal pain, nausea and vomiting. He was recently diagnosed with peritoneal carcinomatosis 2 weeks ago, and is awaiting paracentesis. The pain has persisted and worsened and vomiting as well as failure to thrive. Repeat CT abdomen done in the ED on admission showed moderate ascites with nodular peritoneum consistent with metastatic disease which was unchanged from previous imaging. He was admitted and is being managed for intractable pain due to peritoneal carcinomatosis. Patient seen and examined. Still complains of pain and states only morphine works for the pain. Nausea and vomiting of improved he denies any fever or chills. Review of systems otherwise negative. Patient last took Plavix last Sunday, about 5 days ago in preparation for paracentesis and possible EGD. Patient is however tearful and states that he would not want any chemotherapy for comes to that and is mainly interested in just being comfortable. Vitals/I&O's: Vital Signs Temp Pulse Resp BP Pulse Ox 97.6 F L 82 18 118/55 L 92 07/06/19 06:02 07/06/19 08:56 07/06/19 06:02 07/06/19 06:02 07/06/19 07:31 Oxygen Delivery Method Room Air Weight: 191 lb 2.252 oz Body Mass Index (BMI) 26.4 Finger Stick Blood Glucose 106 Intake and Output for Last 24 Hours 07/04/19 07/05/19 07/06/19 23:59 23:59 23:59 Intake Total 1000 / 1000 250 / 250 Balance 1000 / 1000 250 / 250 General: Alert, Oriented x3, Cooperative, - - mild distress due to pain HEENT: Atraumatic, PERRLA, EOMI, Normocephalic Oral: Dry Mucosa Neck: Supple, No JVD, Negative Carotid Bruits Lungs: Clear to auscultation, Normal air movement, No rhonchi, No wheeze, No rales Cardiovascular: Regular rate, Regular Rhythm, Normal S1, Normal S2, No murmurs Abdomen: Bowel Sounds Present, Soft, - - moderately distended abdomen with mild generalised tenderness, no guarding or rebound tenderness. positive fluid thrill Extremities: No clubbing, No cyanosis, No edema, Capillary Refill Less than 3 Seconds Skin: No rashes, No breakdown Musculoskeletal: No Tenderness to Palpation of Joints or Extremities Lymphatic: No Cervical, Supraclavicular, or Inguinal Adenopathy Neurological: Cranial nerves II-XII grossly intact, Neuro grossly intact, Motor Exam 5/5 strength throughout Psych/Mental Status: Anxious, Alert and oriented to time, place, person, mood and affect Laboratory Results 07/05/19 19:40: WBC 7.3, RBC 4.15 L, Hgb 11.3 L, Hct 36.4 L, MCV 87.7, MCH 27.2, MCHC 31.0 L, RDW Std Deviation 50.9 H, RDW Coeff of Ashley 15.9 H, Plt Count 324, MPV 9.4, Immature Gran % (Auto) 0.400, Neut % (Auto) 68.3, Lymph % (Auto) 17.1 L, [place] % (Auto) 12.8 H, Eos % (Auto) 0.7, Baso % (Auto) 0.7, Absolute Neuts (auto) 5.0, Absolute Lymphs (auto) 1.24, Nucleated RBC % 0 07/05/19 19:40: Sodium 138, Potassium 5.1, Chloride 107, Carbon Dioxide 29.0, Anion Gap 2 L, BUN 19 H, Creatinine 1.26, Estim Creat Clear Calc 54.78, Est GFR (MDRD) Af Amer 72, Est GFR (MDRD) Non-Af 59 L, BUN/Creatinine Ratio 15.1, Glucose 92, Calcium 9.0 07/05/19 19:40: Total Bilirubin 0.50, Direct Bilirubin 0.13, AST 25, ALT 18, Alkaline Phosphatase 113, Total Protein 7.1, Albumin 2.9 L, Globulin 4.2, Lipase 48 L 07/05/19 22:55: Urine Color Yellow, Urine Clarity Clear, Urine pH 6.0, Ur Specific [place] 1.015, Urine Protein Negative, Urine Glucose (UA) Normal, Urine Ketones 5 H, Urine Occult Blood Negative, Urine Nitrite Negative, Urine Bilirubin Negative, Urine Urobilinogen Normal, Ur Leukocyte Esterase Negative, Urine RBC 0 SEEN, Urine WBC 0-5 SEEN, Ur Squamous Epith Cells 0 SEEN, Ur Transition Epith Cell 0-5 SEEN, Urine Bacteria 0 SEEN, Urine Mucus RARE 07/06/19 01:27: POC Glucose 42 L* 07/06/19 01:44: Phosphorus 2.6, Magnesium 2.1, Troponin I < 0.015 07/06/19 01:44: Glucose 64 L 07/06/19 01:56: POC Glucose 61 L 07/06/19 04:29: WBC 5.4, RBC 3.39 L, Hgb 9.3 L, Hct 30.0 L, MCV 88.5, MCH 27.4, MCHC 31.0 L, RDW Std Deviation 52.1 H, RDW Coeff of Ashley 16.0 H, Plt Count 244, MPV 8.9, Immature Gran % (Auto) 0.400, Neut % (Auto) 62.3, Lymph % (Auto) 22.6, [place] % (Auto) 12.9 H, Eos % (Auto) 0.9, Baso % (Auto) 0.9, Absolute Neuts (auto) 3.4, Absolute Lymphs (auto) 1.22, Nucleated RBC % 0 07/06/19 04:29: PT 15.0 H, INR 1.2, APTT 30.8 07/06/19 04:29: Sodium 142, Potassium 4.7, Chloride 110 H, Carbon Dioxide 27.0, Anion Gap 5, BUN 18, Creatinine 1.17, Estim Creat Clear Calc 59.00, Est GFR (MDRD) Af Amer 78, Est GFR (MDRD) Non-Af 65, BUN/Creatinine Ratio 15.4, Glucose 132 H, Calcium 7.9 L, Total Bilirubin 0.50, AST 24, ALT 15 L, Alkaline Phosphatase 93, Total Protein 5.6 L, Albumin 2.2 L, Globulin 3.4, Albumin/Globulin Ratio 0.6 L 07/06/19 04:29: Troponin I < 0.015 07/06/19 06:08: POC Glucose 98 07/06/19 07:30: Troponin I < 0.015 Diagnostic Data Abdomen/Pelvis CT 07/05/19 20:25 IMPRESSION: 1. Moderate ascites. No change from the prior study. 2. Nodular peritoneum consistent with metastatic disease. No change. 3. Nonobstructing left renal stone. Electronically Signed: Lauren Cornell MD at 21:37 EDT Tel , Service support , Chest X-Ray 07/05/19 20:35 IMPRESSION: Incomplete expansion of the lungs. No acute abnormalities. Electronically Signed: Clarke Rai MD at 21:42 EDT , Service support , Current Medications Acetaminophen (Tylenol) 650 mg PO Q6H PRN PRN PRN Reason: Non-cardiac pain (mod-severe) Acetaminophen (Tylenol) 1,000 mg PO Q8 [facility] Last Admin: 07/06/19 06:11 Dose: 1,000 mg Documented by: Al Hydroxide/Mg Hydroxide (Mylanta Ii) 15 - 30 ml PO Q4H PRN PRN PRN Reason: INDIGESTION Albuterol Sulfate (Ventolin Aerosols) 2.5 mg INHALATION Q2H PRN PRN PRN Reason: dyspnea, wheezing Alprazolam (Xanax) 0.25 mg PO QHS PRN PRN PRN Reason: SLEEP Aspirin (Aspirin, Baby) 81 mg PO DAILY@0800 [facility] Last Admin: 07/06/19 08:23 Dose: 81 mg Documented by: Atorvastatin Calcium (Lipitor) 40 mg PO QHS [facility] Dextrose (D50w Syringe) 0 gm IV X1 PRN; Protocol PRN Reason: Hypoglycemia Enoxaparin Sodium (Lovenox) 40 mg SC DAILY@1000 [facility] Last Admin: 07/06/19 08:57 Dose: 40 mg Documented by: Finasteride (Proscar) 5 mg PO DAILY [facility] Last Admin: 07/06/19 08:56 Dose: 5 mg Documented by: Gabapentin (Neurontin) 100 mg PO TIDCM [facility] Last Admin: 07/06/19 08:23 Dose: 100 mg Documented by: Glucagon () 1 mg IM .X1 PRN PRN Reason: Hypoglycemia Hydralazine HCl (Apresoline Iv) 10 mg IV Q4H PRN PRN PRN Reason: SBP > 160 Hydromorphone HCl (Dilaudid Inj) 0.5 mg IV Q4H PRN PRN PRN Reason: Severe pain (7-10/10) Last Admin: 07/06/19 08:24 Dose: 0.5 mg Documented by: Famotidine 20 mg/ Sodium (Chloride) 10 mls @ 300 mls/hr IV Q12 [facility] Last Admin: 07/06/19 08:57 Dose: 0.1 mls/hr Documented by: Sodium Chloride () 1,000 mls @ 100 mls/hr IV .Q10H [facility] Last Admin: 07/06/19 01:34 Dose: 100 mls/hr Documented by: Insulin Glargine (Lantus (Bk)) 60 units SC DAILY [facility] Insulin Human Lispro (Humalog Kwikpen (Bk)) 0 unit SC Q6 [facility]; Protocol Last Admin: 07/06/19 06:09 Dose: Not Given Documented by: Ketorolac Tromethamine (Toradol) 30 mg IV Q8 [facility] Stop: 07/07/19 06:01 Last Admin: 07/06/19 06:11 Dose: 30 mg Documented by: Levothyroxine Sodium (Synthroid) 25 mcg PO DAILY@0600 [facility] Last Admin: 07/06/19 06:11 Dose: 25 mcg Documented by: Lisinopril (Zestril) 20 mg PO BID [facility] Last Admin: 07/06/19 08:56 Dose: 10 mg Documented by: Magnesium Hydroxide (Milk Of Magnesia) 30 ml PO DAILY PRN PRN Reason: Constipation Metoprolol Tartrate (Lopressor (Beta David)) 25 mg PO BID [facility] Last Admin: 07/06/19 08:56 Dose: 25 mg Documented by: Nitroglycerin (Nitrostat) 0.4 mg SUBLINGUAL Q5M PRN PRN Reason: CARDIAC/CHEST PAIN Nutritional Formula (Lactose Free) (Ensure Clear) 120 ml PO 4X/DAY [facility] Last Admin: 07/06/19 08:23 Dose: 120 ml Documented by: Ondansetron HCl (Zofran) 4 mg IV Q8H PRN PRN PRN Reason: NAUSEA/VOMITING Oxycodone HCl (Oxyir) 10 mg PO Q4H PRN PRN PRN Reason: Moderate Pain (4-6/10) Prochlorperazine Edisylate (Compazine Iv) 5 mg IV Q4H PRN PRN PRN Reason: Breakthrough nausea/vomiting Promethazine HCl (Phenergan) 6.25 mg IV Q4H PRN PRN PRN Reason: NAUSEA/VOMITING Last Admin: 07/06/19 01:46 Dose: 6.25 mg Documented by: Sodium Chloride () 10 - 40 ml IV UD PRN PRN Reason: SALINE FLUSH Last Admin: 07/06/19 09:00 Dose: 10 ml Documented by: Tamsulosin HCl (Flomax) 0.4 mg PO DAILY [facility] Last Admin: 07/06/19 08:56 Dose: 0.4 mg Documented by: Temazepam (Restoril) 15 mg PO QHS PRN PRN PRN Reason: INSOMNIA Medical Necessity - Tobacco Use Smoking Status: Former smoker Tobacco Use: Non-smoker Assessment/Plan All Active Problems Ulcer of right lower extremity (Acute) Intractable abdominal pain (Acute) Right shoulder pain (Acute) Malignant ascites (Acute) 1. Intractable abdominal pain due to peritoneal carcinomatosis recently diagnosed with peritoneal carcinomatosis; awaiting further workup to diagnose primary still complaining of severe abdominal pain on IV morphine for pain oncology consulted-think likely primary may be from upper GI, small bowel or appendix aspirin and plavix on hold. last took plavix last sunday CEA and CA 19-9 levels ordered general surgery consulted for upper and lower endoscopy CT chest ordered for complete staging once diagnosis confirmed, he will follow up with oncology for palliative chemotherapy 2. Right shoulder pain has been ongoing for several weeeks EKG showed no acute ST changes and troponins x 3 were negative. will hold off on any further workup for now 3. CAD s/p CABG: hold aspirin and plavix o/a of upcoming paracentesis and possible EGD and colonoscopy. metoprolol, statin and lisinopril 4. Hypertension: on lisinopril and metoprolol. 5. Hyperlipidemia: On statin. 6. Type 2 diabetes mellitus: oral meds currently on hold on account of nausea and vomiting. on insulin lantus 60IU daily. Insulin sliding scale. accuchecks ACHS 7. History of CVA: Aspirin and Plavix on hold as under 1. Stable 8. Hypothyroidism: on synthroid 9. BOH: on flomax DVT prophylaxis: lovenox Code Visit Inpatient E&M: 25584 Subs Hosp L3
--- NOTE | 2019-07-06 09:21 | CON.PCM_ITS ---
Reason for Consult Date of Consultation: 07/06/19 Reason for Consultation: abdominal carcinomatosis-unknown origin History of Present Illness: The patient is a 73 year old M who is noted increasing abdominal distention for the last few months and now increasing abdominal pain for the last 4 weeks. The patient is followed by his primary care physician who felt this is likely constipation. the patient's daughter is a nurse practitioner in cardiology in the [facility]. She had the patient presents to [facility] emergency department. A CT scan of the abdomen and pelvis was obtained there which returned as ascites with significant peritoneal nodules. my review the CT scan without contrast demonstrates significant ascites, no obvious liver lesions with post cholecystectomy changes in the gallbladder fossa. there is contrast in his colon from his previous CT scan performed at [facility]. Otherwise difficult to assess for any GI tract abnormalities. He definitely has what appears to be studding of his omentum. upon further questioning, the patient noted decreased appetite for at least the last few months and has been likely losing weight throughout that time. He was referred to Dr. Soria, oncology clinic clinic [facility]. There were plans for the patient to hold his Plavix and then undergo a paracentesis with biopsy/ascites analysis and upper endoscopy. The patient recalls he had a colonoscopy with single polypectomy early in 2018 performed at the [facility] [place] by Dr. Marko Johnson. I see records of a pathology report for colonoscopy from May 21, 2017. the patient states that he does not wish to undergo repeat colonoscopy but would be amenable to upper endoscopy. The patient had upper endoscopy performed by Dr. Fransisco Florez at the [facility] endoscopy Center on April 20, 2016 for a complaint of heartburn/reflux. he was found to have bile reflux and otherwise an unremarkable upper endoscopy at that time. The patient has a history of significant coronary disease having undergone coronary bypass grafting ?4 along with PTCA after being judged to be poorly reconstructable with poor conduits available at his last attempt at reconstruction. he had a TIA in July 2018. His first VT was in 1992. He has a history of a hiatal hernia, insulin-dependent diabetes, he had a previous finding of a kidney stone and had an subtle finding of a small bladder cancer at that time. He states he has been followed with intermittent cystoscopies and there've been no residual abnormalities in his bladder. his previous abdominal surgeries as well as a cholecystectomy in 1997. He notes an allergy to ciprofloxacin. he has been holding his Plavix since Sunday. Past Medical History Past Medical History (Chronic Problems): Chronic Problems Bilateral lower extremity edema (Chronic) History of bladder cancer (Chronic) Hyperlipidemia (Chronic) Diabetes (Chronic) Hypertension (Chronic) CAD (coronary artery disease) (Chronic) Allergies ciprofloxacin HCl [From Cipro] Adverse Reaction (Verified 07/05/19 19:24) Pain in joints Home Medications: Ambulatory Orders Medication Instructions Recorded Levothyroxine [Synthroid] 25 mcg PO DAILY 09/09/13 Metoprolol Tartrate [Lopressor 25 mg PO BID 09/09/13 (beta gary)] Rosuvastatin Calcium [Crestor] 20 mg PO QHS 09/09/13 Tamsulosin HCl [Flomax] 0.4 mg PO DAILY 09/09/13 ALPRAZolam [Xanax] 0.25 mg PO QHS PRN 04/12/16 Aspirin [Aspirin, Baby] 81 mg PO DAILY@0800 11/24/16 Clopidogrel Bisulfate [Plavix] 75 mg PO DAILY 11/24/16 Finasteride 5 mg PO QHS 11/24/16 Insulin Degludec [Tresiba 60 unit SQ DAILY 11/24/16 Flextouch U-100] Pantoprazole Sodium [Protonix] 20 mg PO DAILY 11/24/16 Glimepiride [Amaryl] 4 mg PO BID 07/03/19 Lisinopril [Zestril] 10 mg PO BID 07/03/19 Ondansetron [Zofran Odt] 4 mg PO Q8H PRN PRN #20 tab 07/03/19 Surgical History: - - CABG x4, PCI x 8-9, cholecystectomy, bladder cancer surgery, cystoscopy with lithotripsy. Psychiatric History: Anxiety Lives: Alone Smoking Status: Former smoker Tobacco Use: Non-smoker Alcohol: None Drugs: None - *Family History Paternal History Items: Diabetes Maternal History Items: Heart Disease Review of Systems Constitutional: Reports: Anorexia, Weakness, Fatigue HEENT: Denies: Head Aches, Sinus Congestion, Sinus Drainage Cardiovascular: Denies: Chest Pain, Palpitations Respiratory: Denies: Cough, Shortness of breath at rest, Sputum production Gastrointestinal: Reports: Abdominal Pain. Denies: Nausea, Vomiting Genitourinary: Denies: Dysuria Musculoskeletal: Denies: Joint Pain, Joint Tenderness Skin: Denies: Rash, Wounds Neurological: Denies: Numbness, Tingling, Focal weakness Psychiatric: Denies: Anxiety, Depression, Homicidal Ideations, Suicidal Ideations Hematologic/ Lymphatic: Denies: Easy Bruising, Easy Bleeding Patient Problems: Active and Suspected Problems Intractable abdominal pain (Acute) Right shoulder pain (Acute) Malignant ascites (Acute) - Physical Exam General: Alert, Oriented x3, Cooperative Lungs: Clear to auscultation, Normal air movement Cardiovascular: Regular rate, Regular Rhythm Abdomen: Bowel Sounds Present, Soft, Distended, Tender - mild diffusely tender without peritoneal signs Vital Signs Temp Pulse Resp BP Pulse Ox 97.6 F L 82 18 118/55 L 92 07/06/19 06:02 07/06/19 08:56 07/06/19 06:02 07/06/19 06:02 07/06/19 07:31 Oxygen Delivery Method Room Air Weight: 86.7 kg Body Mass Index (BMI) 26.4 Finger Stick Blood Glucose 106 Intake and Output for Last 24 Hours 07/04/19 07/05/19 07/06/19 23:59 23:59 23:59 Intake Total 1000 / 1000 250 / 250 Balance 1000 / 1000 250 / 250 Laboratory Tests Past 24 Hrs 07/05/19 07/05/19 07/05/19 19:40 19:40 19:40 WBC 7.3 RBC 4.15 L Hgb 11.3 L Hct 36.4 L MCV 87.7 MCH 27.2 MCHC 31.0 L RDW Std Deviation 50.9 H RDW Coeff of Ashley 15.9 H Plt Count 324 MPV 9.4 Immature Gran % (Auto) 0.400 Neut % (Auto) 68.3 Lymph % (Auto) 17.1 L [place] % (Auto) 12.8 H Eos % (Auto) 0.7 Baso % (Auto) 0.7 Absolute Neuts (auto) 5.0 Absolute Lymphs (auto) 1.24 Nucleated RBC % 0 PT INR APTT Sodium 138 Potassium 5.1 Chloride 107 Carbon Dioxide 29.0 Anion Gap 2 L BUN 19 H Creatinine 1.26 Estim Creat Clear Calc 54.78 Est GFR (MDRD) Af Amer 72 Est GFR (MDRD) Non-Af 59 L BUN/Creatinine Ratio 15.1 Glucose 92 Calcium 9.0 Phosphorus Magnesium Total Bilirubin 0.50 Direct Bilirubin 0.13 AST 25 ALT 18 Alkaline Phosphatase 113 Troponin I Total Protein 7.1 Albumin 2.9 L Globulin 4.2 Albumin/Globulin Ratio Lipase 48 L Urine Color Urine Clarity Urine pH Ur Specific [place] Urine Protein Urine Glucose (UA) Urine Ketones Urine Occult Blood Urine Nitrite Urine Bilirubin Urine Urobilinogen Ur Leukocyte Esterase Urine RBC Urine WBC Ur Squamous Epith Cells Ur Transition Epith Cell Urine Bacteria Urine Mucus 07/05/19 07/06/19 07/06/19 22:55 01:44 01:44 WBC RBC Hgb Hct MCV MCH MCHC RDW Std Deviation RDW Coeff of Ashley Plt Count MPV Immature Gran % (Auto) Neut % (Auto) Lymph % (Auto) [place] % (Auto) Eos % (Auto) Baso % (Auto) Absolute Neuts (auto) Absolute Lymphs (auto) Nucleated RBC % PT INR APTT Sodium Potassium Chloride Carbon Dioxide Anion Gap BUN Creatinine Estim Creat Clear Calc Est GFR (MDRD) Af Amer Est GFR (MDRD) Non-Af BUN/Creatinine Ratio Glucose 64 L Calcium Phosphorus 2.6 Magnesium 2.1 Total Bilirubin Direct Bilirubin AST ALT Alkaline Phosphatase Troponin I < 0.015 Total Protein Albumin Globulin Albumin/Globulin Ratio Lipase Urine Color Yellow Urine Clarity Clear Urine pH 6.0 Ur Specific [place] 1.015 Urine Protein Negative Urine Glucose (UA) Normal Urine Ketones 5 H Urine Occult Blood Negative Urine Nitrite Negative Urine Bilirubin Negative Urine Urobilinogen Normal Ur Leukocyte Esterase Negative Urine RBC 0 SEEN Urine WBC 0-5 SEEN Ur Squamous Epith Cells 0 SEEN Ur Transition Epith Cell 0-5 SEEN Urine Bacteria 0 SEEN Urine Mucus RARE 07/06/19 07/06/19 07/06/19 04:29 04:29 04:29 WBC 5.4 RBC 3.39 L Hgb 9.3 L Hct 30.0 L MCV 88.5 MCH 27.4 MCHC 31.0 L RDW Std Deviation 52.1 H RDW Coeff of Ashley 16.0 H Plt Count 244 MPV 8.9 Immature Gran % (Auto) 0.400 Neut % (Auto) 62.3 Lymph % (Auto) 22.6 [place] % (Auto) 12.9 H Eos % (Auto) 0.9 Baso % (Auto) 0.9 Absolute Neuts (auto) 3.4 Absolute Lymphs (auto) 1.22 Nucleated RBC % 0 PT 15.0 H INR 1.2 APTT 30.8 Sodium 142 Potassium 4.7 Chloride 110 H Carbon Dioxide 27.0 Anion Gap 5 BUN 18 Creatinine 1.17 Estim Creat Clear Calc 59.00 Est GFR (MDRD) Af Amer 78 Est GFR (MDRD) Non-Af 65 BUN/Creatinine Ratio 15.4 Glucose 132 H Calcium 7.9 L Phosphorus Magnesium Total Bilirubin 0.50 Direct Bilirubin AST 24 ALT 15 L Alkaline Phosphatase 93 Troponin I Total Protein 5.6 L Albumin 2.2 L Globulin 3.4 Albumin/Globulin Ratio 0.6 L Lipase Urine Color Urine Clarity Urine pH Ur Specific [place] Urine Protein Urine Glucose (UA) Urine Ketones Urine Occult Blood Urine Nitrite Urine Bilirubin Urine Urobilinogen Ur Leukocyte Esterase Urine RBC Urine WBC Ur Squamous Epith Cells Ur Transition Epith Cell Urine Bacteria Urine Mucus 07/06/19 07/06/19 04:29 07:30 WBC RBC Hgb Hct MCV MCH MCHC RDW Std Deviation RDW Coeff of Ashley Plt Count MPV Immature Gran % (Auto) Neut % (Auto) Lymph % (Auto) [place] % (Auto) Eos % (Auto) Baso % (Auto) Absolute Neuts (auto) Absolute Lymphs (auto) Nucleated RBC % PT INR APTT Sodium Potassium Chloride Carbon Dioxide Anion Gap BUN Creatinine Estim Creat Clear Calc Est GFR (MDRD) Af Amer Est GFR (MDRD) Non-Af BUN/Creatinine Ratio Glucose Calcium Phosphorus Magnesium Total Bilirubin Direct Bilirubin AST ALT Alkaline Phosphatase Troponin I < 0.015 < 0.015 Total Protein Albumin Globulin Albumin/Globulin Ratio Lipase Urine Color Urine Clarity Urine pH Ur Specific [place] Urine Protein Urine Glucose (UA) Urine Ketones Urine Occult Blood Urine Nitrite Urine Bilirubin Urine Urobilinogen Ur Leukocyte Esterase Urine RBC Urine WBC Ur Squamous Epith Cells Ur Transition Epith Cell Urine Bacteria Urine Mucus POC Glucose 07/06/19 07/06/19 07/06/19 06:08 01:56 01:27 POC Glucose 98 61 L 42 L* Assessment/Plan All Active Problems Ulcer of right lower extremity (Acute) Intractable abdominal pain (Acute) Right shoulder pain (Acute) Malignant ascites (Acute) malignant ascites with apparent carcinomatosis-unknown etiology patient was also seen today by Dr. Leonard. The patient apparently perforated was worked performed locally then travel to [place]. He should be undergoing paracentesis both for therapeutic and diagnostic purposes tomorrow. Again is held his Plavix now for 5 days. according to my review of the records, he had upper endoscopy performed 3 years previously and colonoscopy performed 2 years previously. The patient says he is opposed to repeat colonoscopy. I will attempt to contact his daughter to see if she has records of a more recent endoscopy and have my office contact Dr. Johnson's office tomorrow to assure he has not had a more recent colonoscopy. We'll discuss with Dr. Arnold and Dr. Waters the necessity of the colonoscopy if the patient would otherwise decline. I plan to perform upper endoscopy possibly with colonoscopy. The patient stands the risks, benefits, alternatives, complications and consents to the upper endoscopy currently. Will discuss with the patient after paracentesis to see if his abdominal discomfort and symptoms are improved if he is willing to consent to colonoscopy and whether we feel he could tolerate the bowel prep for colonoscopy after paracentesis. The patient's laboratory parameters demonstrated significant malnutrition with low protein and albumin levels a 2.2. Would recommend nutrition consult and nutritional support
--- NOTE | 2019-07-06 10:32 | NURSING ---
c/o pain but refusing the oxyir. explained that the dilaudid is only q4h and there is nothing else available at this time. he wants to wait. insistent on returning to bed, unable to wait until this nurse finishes what she is currently doing. assisted to bed, then pt requesting warm blanket, again, not wanting to wait until this nurse finishes current job(trying to medicate for nausea). suggested pt reach down and pull the covers up that he already has until this nurse is finsished and then will gladly grab a heated blanket. pt would not, i dont want to make this thing (indicating iv) start beeping. why would they put it right here anyway. offered to look for another iv site when finished rounding, pt then said he didnt want another iv site.
--- NOTE | 2019-07-06 11:07 | CPS ---
started by nursing
[2019-07-06 12:26] LABS: Bedside Glucose 59 mg/dL (70-110)
[2019-07-06] MEDS: proCHLORPERazine 10 MG/2 ML Vial 5 MG IV (12:35)
[2019-07-06] MEDS: Dextrose 5%/0.9% NaCl 1,000 ML 75 ML IV (13:37)
[2019-07-06 14:36] LABS: Bedside Glucose 87 mg/dL (70-110)
[2019-07-06] MEDS: Insulin Lispro 100 UNIT/ML INSULN.PEN SC (17:34)
[2019-07-06 17:41] LABS: Bedside Glucose 204 mg/dL (70-110)
[2019-07-06] MEDS: Atorvastatin Calcium 40 MG Tablet PO (21:03)
[2019-07-07] VITALS (12 sets, daily range): BP systolic 98–131; BP diastolic 37–63; PULSE 63–96; RESP 14–18; TEMP 36.8–37.7; O2SAT 88–99
[2019-07-07] MEDS: Insulin Lispro 100 UNIT/ML INSULN.PEN SC ×3 (00:11→17:08)
[2019-07-07 00:20] LABS: Bedside Glucose 209 mg/dL (70-110)
[2019-07-07] MEDS: Magnesium Oxide 400 MG Tablet PO ×2 (01:33→22:13)
[2019-07-07] MEDS: HYDROmorphone 0.5 MG/0.5 ML SYRINGE IV ×3 (01:40→09:36)
[2019-07-07] MEDS: Dextrose 5%/0.9% NaCl 1,000 ML 75 ML IV ×2 (03:15→15:57)
[2019-07-07 05:34] LABS: Absolute Lymphocyte Count 1.35 X10^3/uL (0.83-4.51); Absolute Neutrophil Count 7.8 X10^3/uL (2.0-7.7); Basophil# 0.05 X10^3/uL; Basophil% 0.5 % (0-1); Eosinophil# 0.13 X10^3/uL; Eosinophils% 1.3 % (0-5); Hematocrit 28.5 % (40-54); Hemoglobin 8.9 g/dL (13.0-16.5); Lymphocyte # 1.35 X10^3/ul (4.0); Lymphocyte % 13.5 % (19-41); Mean Corp Hgb Conc 31.2 g/dL (32-36); Mean Corpuscular Hgb 27.6 pg (27.0-32.0); Mean Corpuscular Volume 88.2 fL (80-94); Mean Platelet Vol. 9.2 fl (6.2-12.0); Monocyte# 0.63 X10^3/uL; Monocyte% 6.3 % (0-10); NRBC Flagged by Analyzer 0 % (0-5); Neutrophil # 7.77 X10^3/uL (2.7-7.7); Platelet Count 233 K/mm3 (150-450); RBC Distribution Width CV 16.1 % (11.6-14.6); RBC Distribution Width SD 52.1 fl (35.1-43.9); Red Blood Count 3.23 M/mm3 (4.6-6.2)
--- NOTE | 2019-07-07 05:55 | EKG12_ITS ---
Test Reason : AM Blood Pressure : / mmHG Vent. Rate : 071 BPM Atrial Rate : 071 BPM P-R Int : 162 ms QRS Dur : 094 ms QT Int : 402 ms P-R-T Axes : 036 011 043 degrees QTc Int : 436 ms Normal sinus rhythm Nonspecific T wave abnormality Abnormal ECG Confirmed by CRIS HARE, DEREK ([id number]), restaurant expeditor SAIGE BEATTY ([id number]) on 07/09/2019 2:30:04 PM Referred By: BLAISE Confirmed By:DEREK LYNCH MD
[2019-07-07 05:56] LABS: International Normalized Ratio 1.3; Prothrombin Time (Protime)PT. 16.1 SECONDS (11.7-14.9)
[2019-07-07 06:12] LABS: ALB/GLOB Ratio 0.5 RATIO (0.9-2.4); AST(SGOT) 22 U/L (15-37); Alanine Aminotransfer ALT/SGPT 13 U/L (16-61); Albumin, Serum 1.8 g/dL (3.2-5.0); Alkaline Phosphatase 97 U/L (45-117); Anion Gap 6 (5-15); BUN 19 mg/dL (7-18); BUN/Creat Ratio 15.8 RATIO (10-20); Calcium,Total 7.7 mg/dL (8.5-10.1); Chloride 111 mmol/L (98-107); EST Glomerular Filtration Rate 63 mL/min (>60); Est Glom Filt Rate - Afr Amer 76 mL/min (>60); Estimated Creatinine Clearance 57.52 ml/min; Globulin 3.3 g/dL (2.2-4.2); Glucose 151 mg/dL (74-106); Potassium 4.4 mmol/L (3.5-5.1); Protein, Total 5.1 g/dL (6.4-8.2); Sodium Level 142 mmol/L (136-145)
[2019-07-07] MEDS: Levothyroxine 25 MCG TABLET PO (06:35)
--- NOTE | 2019-07-07 07:00 | US_ITS ---
PROCEDURE: Ultrasound guided paracentesis. DATE OF EXAMINATION: July 07, 2019. INDICATION: Male, 73 years old. Ascites. PHYSICIAN: Joshua Hurt M.D. TECHNIQUE: The risks, benefits, and alternatives to the procedure were explained to the patient. The specific risks of bleeding, infection, and damage to bowel were detailed and accepted. Witnessed informed consent was obtained. The abdomen was ultrasonographically surveyed. An appropriate pocket of fluid was identified at the right lower quadrant. The skin were cleaned and prepped in the usual sterile fashion. Using ultrasound guidance, the peritoneal cavity was accessed with a 5-Kazakh paracentesis needle/catheter system. The trocar was removed. A total of 5220 ml of blood-tinged fluid were removed from the peritoneal cavity. A 120 mL sample of fluid was sent to the laboratory for analysis. The catheter was removed and a sterile dressing was applied. The procedure was well tolerated. US/Paracentesis with US IMPRESSION: Ultrasound guided paracentesis. Electronically Signed: Joshua Hurt, at 15:06 EDT , Service support ,
[2019-07-07 07:11] LABS: Bedside Glucose 164 mg/dL (70-110)
[2019-07-07] MEDS: HYDROmorphone 1 MG/ML Syringe IV (10:45)
[2019-07-07] MEDS: 0.9% NaCl Peripheral Flush Adult/Peds IV (10:45)
--- NOTE | 2019-07-07 10:59 | PCM.PN.HOSP ---
Patient Problems: Active and Suspected Problems Intractable abdominal pain (Acute) Right shoulder pain (Acute) Malignant ascites (Acute) Subjective: No acute events overnight, feels okay today denies any significant amount of abdominal pain. Vitals/I&O's: Vital Signs Temp Pulse Resp BP Pulse Ox 98.6 F 78 18 129/63 H 93 07/07/19 10:30 07/07/19 10:30 07/07/19 10:30 07/07/19 10:30 07/07/19 10:30 Oxygen Delivery Method Room Air Weight: 196 lb 8 oz Body Mass Index (BMI) 26.4 Finger Stick Blood Glucose 106 Intake and Output for Last 24 Hours 07/05/19 07/06/19 07/07/19 23:59 23:59 23:59 Intake Total 1000 / 1000 2525.42 / 2925.42 1677.50 / 1677.50 Output Total 200 / 200 Balance 1000 / 1000 2325.42 / 2725.42 1677.50 / 1677.50 General: Alert, Oriented x3, Cooperative, No apparent distress HEENT: Atraumatic, PERRLA, EOMI, Normocephalic Oral: Dry Mucosa Neck: Supple, No JVD Lungs: Clear to auscultation, Normal air movement, No rhonchi, No wheeze, No rales Cardiovascular: Regular rate, Regular Rhythm, Normal S1, Normal S2, No murmurs Abdomen: Soft, Non Tender, Distended - With dullness to percussion Extremities: No edema, Capillary Refill Less than 3 Seconds Skin: No rashes, No breakdown Neurological: Neuro grossly intact, Sensory exam intact to light touch and pain Psych/Mental Status: Normal Affect, Appropriate Laboratory Results 07/06/19 12:22: POC Glucose 59 L 07/06/19 13:00: POC Glucose 87 07/06/19 17:28: POC Glucose 204 H 07/07/19 00:08: POC Glucose 209 H 07/07/19 05:20: PT 16.1 H, INR 1.3 07/07/19 05:20: WBC 10.0, RBC 3.23 L, Hgb 8.9 L, Hct 28.5 L, MCV 88.2, MCH 27.6, MCHC 31.2 L, RDW Std Deviation 52.1 H, RDW Coeff of Ashley 16.1 H, Plt Count 233, MPV 9.2, Immature Gran % (Auto) 0.400, Neut % (Auto) 78.0 H, Lymph % (Auto) 13.5 L, Armstrong % (Auto) 6.3, Eos % (Auto) 1.3, Baso % (Auto) 0.5, Absolute Neuts (auto) 7.8 H, Absolute Lymphs (auto) 1.35, Nucleated RBC % 0 07/07/19 05:20: Sodium 142, Potassium 4.4, Chloride 111 H, Carbon Dioxide 25.0, Anion Gap 6, BUN 19 H, Creatinine 1.20, Estim Creat Clear Calc 57.52, Est GFR (MDRD) Af Amer 76, Est GFR (MDRD) Non-Af 63, BUN/Creatinine Ratio 15.8, Glucose 151 H, Calcium 7.7 L, Total Bilirubin 0.50, AST 22, ALT 13 L, Alkaline Phosphatase 97, Total Protein 5.1 L, Albumin 1.8 L, Globulin 3.3, Albumin/Globulin Ratio 0.5 L, TSH 2.50 07/07/19 06:24: POC Glucose 164 H Current Medications Acetaminophen (Tylenol) 650 mg PO Q6H PRN PRN PRN Reason: Non-cardiac pain (mod-severe) Acetaminophen (Tylenol) 1,000 mg PO Q8 [facility] Last Admin: 07/07/19 06:46 Dose: Not Given Documented by: Al Hydroxide/Mg Hydroxide (Mylanta Ii) 15 - 30 ml PO Q4H PRN PRN PRN Reason: INDIGESTION Albuterol Sulfate (Ventolin Aerosols) 2.5 mg INHALATION Q2H PRN PRN PRN Reason: dyspnea, wheezing Alprazolam (Xanax) 0.25 mg PO QHS PRN PRN PRN Reason: SLEEP Atorvastatin Calcium (Lipitor) 40 mg PO QHS [facility] Last Admin: 07/06/19 21:03 Dose: 40 mg Documented by: Dextrose (D50w Syringe) 0 gm IV X1 PRN; Protocol PRN Reason: Hypoglycemia Enoxaparin Sodium (Lovenox) 40 mg SC DAILY@1000 SALLY Last Admin: 07/07/19 09:05 Dose: Not Given Documented by: Finasteride (Proscar) 5 mg PO DAILY [facility] Last Admin: 07/06/19 08:56 Dose: 5 mg Documented by: Gabapentin (Neurontin) 100 mg PO TIDCM [facility] Last Admin: 07/07/19 09:04 Dose: Not Given Documented by: Glucagon () 1 mg IM .X1 PRN PRN Reason: Hypoglycemia Hydralazine HCl (Apresoline Iv) 10 mg IV Q4H PRN PRN PRN Reason: SBP > 160 Hydromorphone HCl (Dilaudid Inj) 0.5 mg IV Q4H PRN PRN PRN Reason: Severe pain (7-07/31) Last Admin: 07/07/19 09:36 Dose: 0.5 mg Documented by: Famotidine 20 mg/ Sodium (Chloride) 10 mls @ 300 mls/hr IV Q12 [facility] Last Infusion: 07/07/19 09:38 Dose: Infused Documented by: Dextrose/Sodium Chloride (Dextrose 5%/0.9% Nacl) 1,000 mls @ 75 mls/hr IV .[id number] [facility] Last Infusion: 07/07/19 10:48 Dose: 0 mls/hr Documented by: Insulin Glargine (Lantus (Bkc)) 60 units SC DAILY [facility] Last Admin: 07/06/19 12:36 Dose: Not Given Documented by: Insulin Human Lispro (Humalog Kwikpen (Bk)) 0 unit SC Q6 [facility]; Protocol Last Admin: 07/07/19 06:35 Dose: 1 units Documented by: Levothyroxine Sodium (Synthroid) 25 mcg PO DAILY@0600 [facility] Last Admin: 07/07/19 06:35 Dose: 25 mcg Documented by: Lisinopril (Zestril) 20 mg PO BID [facility] Last Admin: 07/06/19 21:03 Dose: 20 mg Documented by: Magnesium Hydroxide (Milk Of Magnesia) 30 ml PO DAILY PRN PRN Reason: Constipation Magnesium Oxide (Mag-Ox 400) 400 mg PO QHS [facility] Last Admin: 07/07/19 01:33 Dose: 400 mg Documented by: Metoprolol Tartrate (Lopressor (Beta David)) 25 mg PO BID [facility] Last Admin: 07/06/19 21:03 Dose: 25 mg Documented by: Nitroglycerin (Nitrostat) 0.4 mg SUBLINGUAL Q5M PRN PRN Reason: CARDIAC/CHEST PAIN Nutritional Formula (Lactose Free) (Ensure Clear) 120 ml PO 4X/DAY [facility] Last Admin: 07/07/19 09:04 Dose: Not Given Documented by: Ondansetron HCl (Zofran) 4 mg IV Q8H PRN PRN PRN Reason: NAUSEA/VOMITING Oxycodone HCl (Oxyir) 10 mg PO Q4H PRN PRN PRN Reason: Moderate Pain (4-6/10) Prochlorperazine Edisylate (Compazine Iv) 5 mg IV Q4H PRN PRN PRN Reason: Breakthrough nausea/vomiting Last Admin: 07/06/19 12:35 Dose: 5 mg Documented by: Promethazine HCl (Phenergan) 6.25 mg IV Q4H PRN PRN PRN Reason: NAUSEA/VOMITING Last Admin: 07/06/19 10:25 Dose: 6.25 mg Documented by: Sodium Chloride () 10 - 40 ml IV UD PRN PRN Reason: SALINE FLUSH Last Admin: 07/07/19 10:45 Dose: 10 ml Documented by: Tamsulosin HCl (Flomax) 0.4 mg PO DAILY [facility] Last Admin: 07/06/19 08:56 Dose: 0.4 mg Documented by: Temazepam (Restoril) 15 mg PO QHS PRN PRN PRN Reason: INSOMNIA Medical Necessity - Tobacco Use Smoking Status: Former smoker Tobacco Use: Non-smoker Assessment/Plan All Active Problems Ulcer of right lower extremity (Acute) Intractable abdominal pain (Acute) Right shoulder pain (Acute) Malignant ascites (Acute) 1. Intractable abdominal pain secondary to peritoneal carcinomatosis -Discovered about 2 weeks ago and the original source has not been found though he states that his oncologist in [place] thinks that it may be from his appendix. -Continue with Dilaudid and proceed with paracentesis today -Plan for EGD tomorrow by Dr. Shah -Continue to hold aspirin and Plavix -CEA and CA-19-9 have been ordered -CT of the chest to be ordered for completeness, will attempt to have done today after his paracentesis otherwise tomorrow 2. Right shoulder pain -This has been subacute for the last several weeks -EKG was negative for any ST changes and troponins were normal -This could be referred pain from the ascites 3. CAD status post CABG/HTN/HLD/history of CVA -He is on aspirin and Plavix as an outpatient which is been held since last Sunday -We will continue with his metoprolol, statin, lisinopril 4. DM 2 -We will hold his oral medications and continue with Lantus 60 units daily -Continue with Accu-Cheks AC at bedtime 5. Hypothyroidism -Stable -Continue with Synthroid 6. BPH -Stable -Continue with Flomax DVT: Lovenox Code Visit Inpatient E&M: 06629 Subs Hosp L2
--- NOTE | 2019-07-07 11:05 | FLU_PTH ---
PATIENT: DEBI FAIRCHILD LOC: [facility] U#:[id number] AGE/SX: 73/M ROOM: OK322 RE07/05/[address]: Dr. Brandon Munoz MD : [id number] BED: 1 DIS: 07/08/2019 SPEC #: [id number] RECD: 07/07/19 12:04 STATUS: MARISA RELorena #: [id number] ZOE: 07/07/19 11:[address]: Fransisco Wooten DEPT: CYTOLOGY RECD BY: Zac Juarez ENTERED: 07/07/19 12:04 SP TYPE: Fluid OTHR DR: MD Dr. Timothy Blandon MD Dr. Richard Guttman, MD Dr. Tai Chi Kwok, MD Tissues: PARACENTESIS FLUID Procedures: Special Stain Group II Mucicarmine Stain (control) Surgery Specimen Level IV Cytospin Fluid HEADER OPERATION: Ultrasound-guided paracentesis PRE-OP DIAGNOSIS: Intractable back pain, nausea, vomiting TISSUE SUBMITTED: Paracentesis fluid for cytology DIAGNOSIS CYTOLOGY Paracentesis fluid for cytology (cytospin and cell blocks): Rare atypical epithelioid cells suspicious for malignancy. See comment. AM:dana 07/09/19 COMMENT Mucin stain with matched control supports the above diagnosis. This case was discussed with Dr. Kumar on 07/08/19. Case has been reviewed in consultation with Dr. Aragon who concurs with the above diagnosis. IDC:[facility] CYTOLOGY STUDY Slides are reviewed. CYTOLOGY GROSS Received is 120 ml of red cloudy fluid labeled with the patient's name and and designated per the requisition as paracentesis. Submitted for cytology preparation including cell block. / dana 07/07/19 TC:? CPT: 07842, 85441
--- NOTE | 2019-07-07 11:27 | CT_ITS ---
STUDY: CT CHEST/THORAX WITH CONTRAST REASON FOR EXAM: Male, 73 years old. Staging secondary to peritoneal carcinomatosis and malignant ascites. History of hypertension, diabetes, CABG. RADIATION DOSAGE (If Supplied By Facility): CTDIvol = ( 11.41 ) mGy, DLP = ( 428.71 ) mGycm TECHNIQUE: Transaxial imaging was performed following intravenous administration of IV Isovue 300 100mL. Multiplanar coronal and sagittal images were reformatted. Individualized dose optimization techniques were used for this CT. COMPARISON: Portable AP upright chest x-ray July 05, 2019. FINDINGS: There are small bilateral pleural effusions with subsegmental airspace disease with probable atelectasis in the adjacent posterior lung bases. Infection not excluded. Minor subsegmental airspace disease consistent with focal atelectasis also noted in the posterior right upper lobe. There are occasional centrilobular emphysematous changes in the lung apices. There is a 4 mm nodule in the superolateral right middle lobe just below the minor fissure (series 4 image 67, series 602 image 98). A sessile 8.5 x 4 x 1.5 mm density also seen in the superolateral right middle lobe abutting the minor fissure on series 465, series 602 image 119. Irregular shaped focal density of probable scarring seen in the posterior medial left apex on series 4 image 26, series 602 image 195. Normal heart and pericardium. There are calcifications of the coronary arteries. Sternal cerclage wires and vascular clips are present from a prior sternotomy and coronary artery bypass graft procedure (CABG). There is a 2.15 x 0.9 x 0.55 cm low pretracheal lymph node and another 10.5 mm right lower pretracheal lymph node nearby. Normal hilar regions. Normal enhanced pulmonary arteries. There is atherosclerotic calcification of the aortic arch and descending thoracic aorta. There are multi-level degenerative changes of the thoracic spine. There is small volume ascites in the upper abdomen. Surgical clips of prior cholecystectomy noted at the gallbladder fossa. CT/Chest WITH Contrast IMPRESSION: 1. Small bilateral pleural effusions with probable atelectasis in the adjacent posterior lung bases. Infection not excluded. 2. Two small nodule seen in the right middle lobe, as described, and there is focal irregular scarring in the posterior medial left upper lobe. None of these require specific radiographic follow-up. 3. Atherosclerotic vascular calcifications present. The patient has undergone prior median sternotomy and CABG. 4. Small volume ascites noted in the upper abdomen. Patient also has undergone prior cholecystectomy. Electronically Signed: Jacob Elias MD at 16:33 EDT , Service support ,
[2019-07-07 11:42] LABS: Cytology, Body Fluid / CSF SEE PATHOLOGY REPORT
[2019-07-07 12:08] LABS: Body Fluid Mononuclear WBC # 0.447 10^3/uL; Body Fluid Mononuclear WBC % 89.7 %; Body Fluid Polynuclear WBC # 0.051 10^3/uL; Body Fluid Polynuclear WBC % 10.3 %; Body Fluid Total Cells Counted 0.685 10^3/ul; Red Cell Count/Body Fluid 0.051 10^6/ul; White Blood Count/Body Fluid 0.498 10^3/uL
[2019-07-07 12:11] LABS: Auto B Fluid Analyzer BKGD Ct COUNTS W/IN LIMITS (W/IN LIMITS)
[2019-07-07 12:12] LABS: Appearance/Body Fluid CLOUDY; Color/Body Fluid RED; Source- Body Fluid OTHER
[2019-07-07 12:20] LABS: Bedside Glucose 144 mg/dL (70-110)
[2019-07-07 12:26] LABS: LDH,Body Fluid 310 Units/l (Not Establ.)
[2019-07-07 12:33] LABS: Lymphocytes 25 %; Macrophages 32 %; Mesothelial Cells 3 %; Monocytes 37 %; Neutrophil (Segs) 2 %
[2019-07-07 12:34] LABS: Body Fluid QC Type(s) BF4Q; Other Cell Type/BF 1 %
[2019-07-07 13:32] LABS: Glucose, Body Fluid 147 mg/dL (40-70); Protein, Body Fluid 3.7 g/dL (Not Establ.)
--- NOTE | 2019-07-07 14:05 | CASEMGMT ---
CHELE PINEDA Face to Face with patient for initial transition planning/care coordination assessment. RN CM introduced self and role at [facility]. Patient sitting in chair, alert and oriented daughter at bedside. Patient willing to participate in assessment and is able to answer all questions appropriately. Care providers, pharmacy, and demographics verified. Patient wishes to discharge home and will monitor for need for HHC. Patient is interested in Palliative information. Patient states he has no further needs or concerns at this time. PEDRO Greene updated regarding referral for Palliative Care. CM to follow for discharge planning needs that may arise. PCP: Jimmy Specialists:Jaden, urologist; Julio podiatry; DENILSON Johnson Preferred Pharmacy: [facility] Insurance: [employer] PPO Prescription Benefit: yes Living Will/HPOA: yes, daughter Sangita Camacho LNOK: daughter Living Arrangements: Patient lives alone with his dog in an apartment with no steps to enter. Patient states that he is independent at home. Daughter states that patient has been declining this last week and unable to drive and care for self. Transportation: self DME/HHC: Patient denies any DME. No previous HHC or SNF. Disposition Plan: Patient to discharge home with family support and follow-up plans in place. Will monitor for need for HHC. Vicky POSEY, RN, CM
--- NOTE | 2019-07-07 15:16 | NURSING ---
reviewed vital signs taken by Too [place] professional nursing tutor
[2019-07-07] MEDS: Gabapentin 100 MG Capsule PO (15:51)
[2019-07-07] MEDS: Tamsulosin HCl 0.4 MG Capsule PO (15:51)
[2019-07-07] MEDS: Lisinopril 20 MG Tablet PO ×2 (15:52→22:13)
[2019-07-07] MEDS: Metoprolol Tartrate 25 MG Tablet PO ×2 (15:52→22:13)
[2019-07-07] MEDS: Finasteride 5 MG Tablet PO (15:53)
--- NOTE | 2019-07-07 16:39 | CASEMGMT ---
Addendum entered by Eriac Jimenez 07/08/19 14:15: Followed up with patient about discharge plans and conversation with daughter. Pt and family agreed to DC back to his home with family support. Daughter will be with patient very other pay, per pt. Physician ordered Palliative Radiation upon DC to assist with pain management. Pt understands he can elect hospice at any time or to pursue treatment. Plan: DC home with family support and Palliative Radiation today. Original Note: Social Work Spoke with patient about cancer dx, possible referral to Palliative Medicine. Patient spoke freely about terminal diagnoses. Pt is close with his daughter and brother whom both offered to assist at discharge. Brother lives in [place] and has a suite for him, but works during the day. Daughter is a [employer] and would like pt to discharge to a facility near her in [place]. Pt inquired about hospice services and inpatient hospice. Educated pt on Palliative, Hospice and Inpatient Hospice. Pt is leaning more toward hospice services. Pt has appt tomorrow morning which daughter will be attending. After appt, pt and daughter to discuss the DC plan. Offered for social work to speak with daughter as well. SW will continue to follow. DEMETRIA BhatiaW
[2019-07-07 17:00] LABS: Bedside Glucose 317 mg/dL (70-110)
--- NOTE | 2019-07-07 17:00 | PCM.PN.SRG ---
Patient Problems: Active and Suspected Problems Intractable abdominal pain (Acute) Right shoulder pain (Acute) Malignant ascites (Acute) Subjective: feeling better after paracentesis - 5L removed - Physical Exam General: Alert, Oriented x3, Cooperative Lungs: Clear to auscultation, Normal air movement Cardiovascular: Regular rate, Regular Rhythm Abdomen: Bowel Sounds Present, Soft, - - less distended Vital Signs Temp Pulse Resp BP Pulse Ox 98.9 F 96 14 117/58 L 92 07/07/19 14:20 07/07/19 15:52 07/07/19 14:20 07/07/19 14:20 07/07/19 14:20 Oxygen Delivery Method [3] Room Air Oxygen Delivery Method [2] Room Air Oxygen Delivery Method [1 ( Room Air Initial Baseline)] Oxygen Delivery Method Room Air Weight: 89.131 kg Body Mass Index (BMI) 26.4 Finger Stick Blood Glucose 106 Intake and Output for Last 24 Hours 07/05/19 07/06/19 07/07/19 23:59 23:59 23:59 Intake Total 1000 / 1000 2525.42 / 2925.42 Output Total 200 / 200 Balance 1000 / 1000 2325.42 / 2725.42 Laboratory Tests Past 24 Hrs 07/07/19 07/07/19 07/07/19 05:20 05:20 05:20 WBC 10.0 RBC 3.23 L Hgb 8.9 L Hct 28.5 L MCV 88.2 MCH 27.6 MCHC 31.2 L RDW Std Deviation 52.1 H RDW Coeff of Ashley 16.1 H Plt Count 233 MPV 9.2 Immature Gran % (Auto) 0.400 Neut % (Auto) 78.0 H Lymph % (Auto) 13.5 L [place] % (Auto) 6.3 Eos % (Auto) 1.3 Baso % (Auto) 0.5 Absolute Neuts (auto) 7.8 H Absolute Lymphs (auto) 1.35 Nucleated RBC % 0 PT 16.1 H INR 1.3 Sodium 142 Potassium 4.4 Chloride 111 H Carbon Dioxide 25.0 Anion Gap 6 BUN 19 H Creatinine 1.20 Estim Creat Clear Calc 57.52 Est GFR (MDRD) Af Amer 76 Est GFR (MDRD) Non-Af 63 BUN/Creatinine Ratio 15.8 Glucose 151 H Calcium 7.7 L Total Bilirubin 0.50 AST 22 ALT 13 L Alkaline Phosphatase 97 Total Protein 5.1 L Albumin 1.8 L Globulin 3.3 Albumin/Globulin Ratio 0.5 L TSH 2.50 Fluid Source Fluid Color Fluid Appearance Fluid WBC Fluid RBC Fluid Tot Cell Count Fld Polynuclear WBCs # Fld Polynuclear WBCs % Fluid Mononuclear WBCs Fld Mononuclear WBCs % Fluid Neutrophils Fluid Lymphocytes Fluid Monocytes Fluid Macrophages Fld Mesothelial Cells Fluid Other Cells Fl Pathologist Comment Fluid Glucose Fluid Total Protein Fluid LDH Fluid Comment 2 Miscellaneous Cytology 07/07/19 07/07/19 07/07/19 11:05 11:05 11:05 WBC RBC Hgb Hct MCV MCH MCHC RDW Std Deviation RDW Coeff of Ashley Plt Count MPV Immature Gran % (Auto) Neut % (Auto) Lymph % (Auto) [place] % (Auto) Eos % (Auto) Baso % (Auto) Absolute Neuts (auto) Absolute Lymphs (auto) Nucleated RBC % PT INR Sodium Potassium Chloride Carbon Dioxide Anion Gap BUN Creatinine Estim Creat Clear Calc Est GFR (MDRD) Af Amer Est GFR (MDRD) Non-Af BUN/Creatinine Ratio Glucose Calcium Total Bilirubin AST ALT Alkaline Phosphatase Total Protein Albumin Globulin Albumin/Globulin Ratio TSH Fluid Source OTHER Fluid Color RED Fluid Appearance CLOUDY Fluid WBC 0.498 Fluid RBC 0.051 Fluid Tot Cell Count 0.685 Fld Polynuclear WBCs # 0.051 Fld Polynuclear WBCs % 10.3 Fluid Mononuclear WBCs 0.447 Fld Mononuclear WBCs % 89.7 Fluid Neutrophils 2 Fluid Lymphocytes 25 Fluid Monocytes 37 Fluid Macrophages 32 Fld Mesothelial Cells 3 Fluid Other Cells 1 Fl Pathologist Comment May follow Fluid Glucose 147 H Fluid Total Protein 3.7 Fluid LDH 310 Fluid Comment 2 TNP Miscellaneous Cytology 07/07/19 11:05 WBC RBC Hgb Hct MCV MCH MCHC RDW Std Deviation RDW Coeff of Ashley Plt Count MPV Immature Gran % (Auto) Neut % (Auto) Lymph % (Auto) [place] % (Auto) Eos % (Auto) Baso % (Auto) Absolute Neuts (auto) Absolute Lymphs (auto) Nucleated RBC % PT INR Sodium Potassium Chloride Carbon Dioxide Anion Gap BUN Creatinine Estim Creat Clear Calc Est GFR (MDRD) Af Amer Est GFR (MDRD) Non-Af BUN/Creatinine Ratio Glucose Calcium Total Bilirubin AST ALT Alkaline Phosphatase Total Protein Albumin Globulin Albumin/Globulin Ratio TSH Fluid Source Fluid Color Fluid Appearance Fluid WBC Fluid RBC Fluid Tot Cell Count Fld Polynuclear WBCs # Fld Polynuclear WBCs % Fluid Mononuclear WBCs Fld Mononuclear WBCs % Fluid Neutrophils Fluid Lymphocytes Fluid Monocytes Fluid Macrophages Fld Mesothelial Cells Fluid Other Cells Fl Pathologist Comment Fluid Glucose Fluid Total Protein Fluid LDH Fluid Comment 2 Miscellaneous Cytology Pending POC Glucose 07/07/19 07/07/19 07/07/19 12:10 06:24 00:08 POC Glucose 144 H 164 H 209 H 07/06/19 17:28 POC Glucose 204 H Medical Necessity - Tobacco Use Smoking Status: Former smoker Tobacco Use: Non-smoker Assessment/Plan All Active Problems Ulcer of right lower extremity (Acute) Intractable abdominal pain (Acute) Right shoulder pain (Acute) Malignant ascites (Acute) malignant ascites with apparent carcinomatosis-unknown etiology patient was seen yesterday by Dr. Arnold. I did speak to Dr. Waters. The patient apparently preferred to havce his procedures performed locally then travel to [place]. He underwent paracentesis yeilding 5 L removed. he notes he is much more comfortable. initial smear did not demonstrate malignant cells, we are awaiting the cell block tomorrow. If negative, Dr. Hurt will perform omental biopsy. He is holding his Plavix. Review of the records, he had upper endoscopy performed 3 years previously and colonoscopy performed 2 years previously. The patient says he is opposed to repeat colonoscopy. Dr. Waters and I agreed to proceed with upper endoscopy and not currently the colonoscopy. I plan to perform upper endoscopy. This is scheduled at 11AM tomorrow. The patient stands the risks, benefits, alternatives, complications and consents to the upper endoscopy. The patient's laboratory parameters demonstrated significant malnutrition with low protein and albumin levels a 2.2. Would recommend nutrition consult and nutritional support
[2019-07-07] MEDS: Ondansetron 4 MG/2 ML Vial IV (18:50)
[2019-07-07] MEDS: Acetaminophen 500 MG Tablet 1000 MG PO (22:12)
[2019-07-07] MEDS: Atorvastatin Calcium 40 MG Tablet PO (22:13)
[2019-07-08] VITALS (9 sets, daily range): BP systolic 107–140; BP diastolic 39–63; PULSE 63–69; RESP 14–18; TEMP 36.2–37; O2SAT 94–96; BMI 25.9
[2019-07-08 01:45] LABS: Bedside Glucose 103 mg/dL (70-110)
[2019-07-08] MEDS: Dextrose 5%/0.9% NaCl 1,000 ML 75 ML IV (05:46)
[2019-07-08 05:54] LABS: Absolute Lymphocyte Count 1.34 X10^3/uL (0.83-4.51); Absolute Neutrophil Count 6.9 X10^3/uL (2.0-7.7); Basophil# 0.05 X10^3/uL; Basophil% 0.5 % (0-1); Eosinophil# 0.15 X10^3/uL; Eosinophils% 1.6 % (0-5); Hematocrit 27.7 % (40-54); Hemoglobin 8.7 g/dL (13.0-16.5); Lymphocyte # 1.34 X10^3/ul (4.0); Lymphocyte % 14.7 % (19-41); Mean Corp Hgb Conc 31.4 g/dL (32-36); Mean Corpuscular Hgb 27.7 pg (27.0-32.0); Mean Corpuscular Volume 88.2 fL (80-94); Mean Platelet Vol. 9.4 fl (6.2-12.0); Monocyte# 0.68 X10^3/uL; Monocyte% 7.5 % (0-10); NRBC Flagged by Analyzer 0 % (0-5); Neutrophil # 6.85 X10^3/uL (2.7-7.7); Neutrophil % 75.4 % (47-70); Platelet Count 229 K/mm3 (150-450); RBC Distribution Width CV 16.1 % (11.6-14.6); Red Blood Count 3.14 M/mm3 (4.6-6.2); White Blood Count 9.1 K/mm3 (4.4-11.0)
[2019-07-08] MEDS: Acetaminophen 500 MG Tablet 1000 MG PO ×2 (06:08→15:29)
[2019-07-08] MEDS: Levothyroxine 25 MCG TABLET PO (06:08)
[2019-07-08 06:12] LABS: ALB/GLOB Ratio 0.5 RATIO (0.9-2.4); AST(SGOT) 24 U/L (15-37); Alanine Aminotransfer ALT/SGPT 13 U/L (16-61); Albumin, Serum 1.7 g/dL (3.2-5.0); Alkaline Phosphatase 105 U/L (45-117); Anion Gap 5 (5-15); BUN 15 mg/dL (7-18); BUN/Creat Ratio 15.1 RATIO (10-20); Calcium,Total 7.6 mg/dL (8.5-10.1); Chloride 113 mmol/L (98-107); EST Glomerular Filtration Rate 78 mL/min (>60); Est Glom Filt Rate - Afr Amer 94 mL/min (>60); Estimated Creatinine Clearance 69.03 ml/min; Globulin 3.1 g/dL (2.2-4.2); Glucose 120 mg/dL (74-106); Protein, Total 4.8 g/dL (6.4-8.2); Sodium Level 143 mmol/L (136-145)
[2019-07-08 06:51] LABS: Bedside Glucose 100 mg/dL (70-110)
--- NOTE | 2019-07-08 07:13 | PN_ITS ---
Progress Note Oncology progress note: Patient is feeling much better after paracentesis. CT chest showed no suspicious lesions or primary cancer in his chest. Abdominal pain as well as right shoulder pain improved suggesting refer pain to the shoulder from diaphragmatic irritation. Fluid cytology pending, but appeared to be exudative consistent with malignant ascites. Impression: 1) carcinomatosis from unknown primary 2) abdominal and shoulder pain secondary to malignant ascites - improved 3) severe caloric and protein malnutrition. Plan: 1) scheduled for EGD today with Dr. Kumar -CEA and CA-19-9 level pending -Possible additional biopsy of the omental mass at [facility] (for MSI/MMR and genomics study ) -Follow-up with Dr. Waters to discuss palliative chemotherapy options with FOLFOX next week. -Discharge planning 2) continue MS or Tylenol as needed for pain 3) nutrition consult. cc: Dr. Jamie Waters, Dr. Triston Kumar
[2019-07-08] MEDS: Ondansetron 4 MG/2 ML Vial IV (09:35)
[2019-07-08 09:46] LABS: Bedside Glucose 81 mg/dL (70-110)
--- NOTE | 2019-07-08 09:53 | NURSING ---
report called to CHELE Espinosa in [place] for pre-op EGD.
--- NOTE | 2019-07-08 11:00 | EGD_PTH ---
PATIENT: DEBI FAIRCHILD LOC: MS3 U#:[id number] AGE/SX: 73/M ROOM: [facility] [place] RE07/05/[address]: Dr. Brandon Munoz MD : 1945 BED: 1 DIS: 07/08/2019 SPEC #: [id number] RECD: 07/08/19 12:37 STATUS: MARISA REQ #: [id number] ZOE: 07/08/19 11:[address]: Triston Kumar DEPT: SURGICAL PATHOLOGY RECD BY: Zac Juarez ENTERED: 07/08/19 13:17 SP TYPE: EGD BIOPSY OTHR DR: MD Dr. Brandon Blandon MD Dr. Lapman Lun, MD Dr. Richard Guttman, MD Dr. Tai Chi Kwok, MD Tissues: Gastric mucous membrane Procedures: Surgery Specimen Level IV Comments: @ Ordering doctor for SUIV edited from to DR.RGUTTM Burgos by MYRA at 07/08/19 1420 @ Submitting doctor edited from to @ by RGOOD at 07/08/19 1420 HEADER OPERATION: EGD ([facility] [place]) PRE-OP DIAGNOSIS: Ascites, carcinomatosis TISSUE SUBMITTED: Antral biopsy for H. pylori and pathology MICROSCOPIC DIAGNOSIS Gastric antrum, biopsy: Mild chronic gastritis. See comment. AM:dana 07/09/19 COMMENT The results of immunohistochemistry for Helicobacter pylori will be reported separately ([id number]). MICROSCOPIC DESCRIPTION Slides are reviewed. GROSS DESCRIPTION Received in fixative is one container labeled with the patient's name and designated antral biopsy. The specimen consists of one irregular fragment of light brumfield soft tissue that measures 0.3 x 0.3 x 0.1 cm. The specimen is totally submitted in one cassette. / SJ:dana 07/08/19 TC:3 CPT: 04759
--- NOTE | 2019-07-08 11:00 | IMM_PTH ---
PATIENT: DEBI FAIRCHILD LOC: MS3 U#:[id number] AGE/SX: 73/M ROOM: [facility] [place] RE07/05/[address]: Dr. Brandon Munoz MD : 1945 BED: 1 DIS: 07/08/2019 SPEC #: [id number] RECD: 07/08/19 14:20 STATUS: SOUOriana REQ #: [id number] ZOE: 07/08/19 11:[address]: Triston Kumar DEPT: IMMUNOHISTOCHEMISTRY RECD BY: Maria Teresa Mckinney ENTERED: 07/08/19 14:20 SP TYPE: IMMUNO OTHR DR: MD Dr. Brandon Blandon MD Dr. Lapman Lun, MD Dr. Tai Chi Kwok, MD Tissues: Stomach, NOS Procedures: H Pylori (initial) PHYSICIAN & INSTITUTION [place] [address] SPECIMEN INFORMATION: Tissue Source: Antral biopsy Clinical Info: Ascites, carcinomatosis Specimen Number: [id number] CPT code: 15894 METHODOLOGY: Deparaffinized sections of prefer/formalin-fixed tissue or PAP/DQ stained slides are incubated with monoclonal/polyclonal antibodies/oligonucleotide probes. Localization is made via biotin free immunoperoxidase method. Appropriate controls are performed and reacted as expected. Results on target cell population are indicated in the following table: RESULTS: ANTIBODY / CLONE RESULT H Pylori (polyclonal) negative These tests were developed and their performance characteristics determined by [facility]. They may not have been cleared or approved by the U.S. Food and Drug Administration. The FDA has determined that such clearance or approval is not necessary. INTERPRETATION: Antral biopsy: Negative for Helicobacter pylori organisms. AM:dana 07/09/19
--- NOTE | 2019-07-08 12:22 | PCM.DC ---
- Discharge Diagnoses Current Active Problems: Current Active and Chronic Problems Hyperlipidemia (Chronic) Intractable abdominal pain (Acute) Right shoulder pain (Acute) Malignant ascites (Acute) You will use the following diet at home:: Calorie/Carbohydrate Controlled (specify 1200, 1400, etc) - 1800 dae, Cardiac Your food should be the consistency of: Regular Discharge Activity: Return to Normal Activity Weight Bearing Status: Weight bearing as tolerated Call your doctor if you observe: Fever of 101 or Higher, Shortness of breath, Dizziness, Fainting spells, Chest pain, Increased palpitations (irregular heartbeat), Uncontrolled pain Allergies/Adverse Reactions: Allergies ciprofloxacin HCl [From Cipro] Adverse Reaction (Verified 07/05/19 19:24) Pain in joints Medications to take at Discharge Levothyroxine [Synthroid] 25 mcg PO DAILY 09/09/13 Metoprolol Tartrate [Lopressor (beta gary)] 25 mg PO BID 09/09/13 Rosuvastatin Calcium [Crestor] 20 mg PO QHS 09/09/13 Tamsulosin HCl [Flomax] 0.4 mg PO DAILY 09/09/13 ALPRAZolam [Xanax] 0.25 mg PO QHS PRN 04/12/16 Aspirin [Aspirin, Baby] 81 mg PO DAILY@0800 11/24/16 Finasteride 5 mg PO QHS 11/24/16 Insulin Degludec [Tresiba Flextouch U-100] 60 unit SQ DAILY 11/24/16 Glimepiride [Amaryl] 4 mg PO BID 07/03/19 Lisinopril [Zestril] 10 mg PO BID 07/03/19 Ondansetron [Zofran Odt] 4 mg PO Q8H PRN PRN #20 tab 07/03/19 Pantoprazole Sodium [Protonix] 40 mg PO DAILY #90 tab 07/08/19 The following prescriptions were given: Pantoprazole Sodium [Protonix] 40 mg PO DAILY #90 tab Transmission Status: Pending to [id number] Primary Care Physician: Georgi Marquez Chi, MD [Primary Care Provider] - Please follow up with your Primary Care Physician in: 1-2 weeks. Test Results: Test results from this visit will be discussed in further detail at your follow-up appointment, if applicable. Please Follow Up With: Jamie Waters DO When: next week.
--- NOTE | 2019-07-08 12:55 | PCM.DC.SUM ---
Discharge Date and Diagnosis - Problem List Patient Problems: Active and Suspected Problems Intractable abdominal pain (Acute) Right shoulder pain (Acute) Malignant ascites (Acute) Date of Admission: 07/05/19 Date of Discharge: 07/08/19 - Primary Discharge Diagnosis Active and Suspected Problems #1 intractable abdominal pain/nausea/vomiting, secondary to peritoneal carcinomatosis. #2 moderate ascites, probably malignant, status post paracentesis. #3 gastritis - Secondary Discharge Diagnosis Chronic Problems Bilateral lower extremity edema (Chronic) History of bladder cancer (Chronic) Hyperlipidemia (Chronic) Diabetes (Chronic) Hypertension (Chronic) CAD (coronary artery disease) (Chronic) Hospital Course and Treatment Imaging Results: Clinical Impression(s) from Imaging Studies Abdomen/Pelvis CT 07/05/19 20:25 IMPRESSION: 1. Moderate ascites. No change from the prior study. 2. Nodular peritoneum consistent with metastatic disease. No change. 3. Nonobstructing left renal stone. Electronically Signed: Lauren Cornell MD at 21:37 EDT Tel , Service support , Chest X-Ray 07/05/19 20:35 IMPRESSION: Incomplete expansion of the lungs. No acute abnormalities. Electronically Signed: Clarke Rai MD at 21:42 EDT , Service support , Paracentesis Ultrasound 07/07/19 07:00 IMPRESSION: Ultrasound guided paracentesis. Electronically Signed: Joshua Hurt, at 15:06 EDT , Service support , Chest CT 07/07/19 11:27 IMPRESSION: 1. Small bilateral pleural effusions with probable atelectasis in the adjacent posterior lung bases. Infection not excluded. 2. Two small nodule seen in the right middle lobe, as described, and there is focal irregular scarring in the posterior medial left upper lobe. None of these require specific radiographic follow-up. 3. Atherosclerotic vascular calcifications present. The patient has undergone prior median sternotomy and CABG. 4. Small volume ascites noted in the upper abdomen. Patient also has undergone prior cholecystectomy. Electronically Signed: Jacob Elias MD at 16:33 EDT , Service support , Dr. Arnold, oncology. Dr. Shah, general surgery. Operations: None Procedures: EGD, Paracentesis Summary of Care Provided: Patient seen and examined on the day of discharge and appeared to be stable to be discharged home. He denies any more dental pain, nausea or vomiting. After paracentesis, patient felt significantly better. His vital signs are stable. The patient is a 73 year old M admitted because of abdominal pain, nausea and vomiting. He had CT scan abdomen and pelvis without contrast that revealed moderate ascites, nodular peritoneum consistent with metastatic disease and nonobstructing left kidney stone. Patient underwent paracentesis and 5220 mL of blood-tinged fluid was removed. Ascitic fluid sent for analysis and appeared to be probably exudative ascites and probably due to malignancy. Patient was treated with IV fluids, IV antiemetics and IV morphine PRN for pain. After paracentesis, patient symptoms improved including abdominal pain, nausea and vomiting. Ascitic fluid cytology was pending at the time of discharge. Oncology consulted and stated that this is likely peritoneal carcinomatosis with unknown primary source of malignancy. Oncology recommended to have omental biopsy done at [facility]. Routine blood work was remarkable for chronic anemia, otherwise unremarkable. Patient underwent upper EGD by general surgery that revealed mild gastritis and small hiatal hernia. Patient discharged home in a stable medical condition, discharged on Protonix 40 mg p.o. daily, aspirin and Plavix was discontinued as patient is going for omental biopsy at [facility] in the near future, continued on his previous home medications, started on Black Diamond PRN for pain, plan to follow-up with oncology this coming week and according to Dr. Waters, omental biopsy will be done soon in the next few days at [facility], recommended follow-up with PCP in 1 to 2 weeks. Patient Problems: Active and Suspected Problems Intractable abdominal pain (Acute) Right shoulder pain (Acute) Malignant ascites (Acute) - Physical Exam General: Alert, Oriented x3, Cooperative, No apparent distress HEENT: Atraumatic, PERRLA, EOMI, Normocephalic Oral: Moist Mucosa, No Gingival or Mucosal Lesions/ Ulcerations Neck: Supple, No JVD, Negative Carotid Bruits, Trachea Midline, Thyroid Normal Size and Texture Lungs: Clear to auscultation, Normal air movement, No rhonchi, No wheeze, No rales, Diminished Cardiovascular: Regular rate, Regular Rhythm, Normal S1, Normal S2, PMI Normal Abdomen: Bowel Sounds Present, Soft, Non Tender, Non-Distended, No Hepato-splenomegaly Extremities: No clubbing, No cyanosis, Edema Skin: No rashes, No breakdown Lymphatic: No Cervical, Supraclavicular, or Inguinal Adenopathy Neurological: Cranial nerves II-XII grossly intact, Neuro grossly intact Psych/Mental Status: Normal Affect, Appropriate, Alert and oriented to time, place, person, mood and affect Vital Signs Temp Pulse Resp BP Pulse Ox 97.4 F L 66 14 130/46 H 96 07/08/19 12:27 07/08/19 12:27 07/08/19 12:27 07/08/19 12:27 07/08/19 12:27 Oxygen Delivery Method [3] Room Air Oxygen Delivery Method [2] Room Air Oxygen Delivery Method [1 ( Room Air Initial Baseline)] Oxygen Delivery Method Room Air Weight: 186 lb 8.177 oz Body Mass Index (BMI) 25.9 Finger Stick Blood Glucose 106 Intake and Output for Last 24 Hours 07/06/19 07/07/19 07/08/19 23:59 23:59 23:59 Intake Total 2525.42 / 2925.42 2370.00 / 2670.00 1550 / 1550 Output Total 200 / 200 650 / 650 Balance 2325.42 / 2725.42 2370.00 / 2345.00 900 / 900 Laboratory Tests Past 24 Hrs 07/07/19 07/08/19 07/08/19 11:05 05:30 05:30 WBC 9.1 RBC 3.14 L Hgb 8.7 L Hct 27.7 L MCV 88.2 MCH 27.7 MCHC 31.4 L RDW Std Deviation 52.0 H RDW Coeff of Ashley 16.1 H Plt Count 229 MPV 9.4 Immature Gran % (Auto) 0.300 Neut % (Auto) 75.4 H Lymph % (Auto) 14.7 L [place] % (Auto) 7.5 Eos % (Auto) 1.6 Baso % (Auto) 0.5 Absolute Neuts (auto) 6.9 Absolute Lymphs (auto) 1.34 Nucleated RBC % 0 Sodium 143 Potassium 4.0 Chloride 113 H Carbon Dioxide 25.0 Anion Gap 5 BUN 15 Creatinine 1.00 Estim Creat Clear Calc 69.03 Est GFR (MDRD) Af Amer 94 Est GFR (MDRD) Non-Af 78 BUN/Creatinine Ratio 15.1 Glucose 120 H Calcium 7.6 L Total Bilirubin 0.20 AST 24 ALT 13 L Alkaline Phosphatase 105 Total Protein 4.8 L Albumin 1.7 L Globulin 3.1 Albumin/Globulin Ratio 0.5 L Fluid Glucose 147 H Fluid Total Protein 3.7 POC Glucose 07/08/19 07/08/19 07/07/19 09:40 06:17 22:04 POC Glucose 81 100 103 07/07/19 16:51 POC Glucose 317 H Discharge Activity: Return to Normal Activity Weight Bearing Status: Weight bearing as tolerated Call your doctor if you observe: Fever of 101 or Higher, Shortness of breath, Dizziness, Fainting spells, Chest pain, Increased palpitations (irregular heartbeat), Uncontrolled pain Home Medications: Medications to take at Discharge Levothyroxine [Synthroid] 25 mcg PO DAILY 09/09/13 Metoprolol Tartrate [Lopressor (beta gary)] 25 mg PO BID 09/09/13 Rosuvastatin Calcium [Crestor] 20 mg PO QHS 09/09/13 Tamsulosin HCl [Flomax] 0.4 mg PO DAILY 09/09/13 ALPRAZolam [Xanax] 0.25 mg PO QHS PRN 04/12/16 Finasteride 5 mg PO QHS 11/24/16 Insulin Degludec [Tresiba Flextouch U-100] 60 unit SQ DAILY 11/24/16 Glimepiride [Amaryl] 4 mg PO BID 07/03/19 Lisinopril [Zestril] 10 mg PO BID 07/03/19 Ondansetron [Zofran Odt] 4 mg PO Q8H PRN PRN #20 tab 07/03/19 Hydrocodone/Acetaminophen [Black Diamond 5-325 Tablet] 1 tab PO Q8H PRN PRN 5 Days #14 tab 07/08/19 Pantoprazole Sodium [Protonix] 40 mg PO DAILY #90 tab 07/08/19 Following Prescrptions Were Given to Patient: Hydrocodone/Acetaminophen [Black Diamond 5-325 Tablet] 1 tab PO Q8H PRN PRN 5 Days #14 tab PRN Reason: Severe Pain (-07/31) Prescription Printed Pantoprazole Sodium [Protonix] 40 mg PO DAILY #90 tab Transmission Status: Received by [id number] Primary Care Physician: Georgi Marquez Chi, MD [Primary Care Provider] - Please follow up with your Primary Care Physician in: 1-2 weeks. Please Follow Up With: Jamie Waters DO When: next week. Disposition: Home Minutes spent on discharge:: 32 Patient Condition:: Stable Medical Necessity - Tobacco Use Smoking Status: Former smoker Tobacco Use: Non-smoker Meaningful Use Info Meaningful Use Diagnoses (Choose all that apply): None applicable Code Visit Inpatient E&M: 19904 Disch Hosp
--- NOTE | 2019-07-08 13:53 | PCA ---
appointment was already made for doctor masci office. lisa cannot get ahold of the office keep getting voicemail.
[2019-07-08] MEDS: Finasteride 5 MG Tablet PO (14:11)
[2019-07-08] MEDS: Metoprolol Tartrate 25 MG Tablet PO (14:11)
[2019-07-08] MEDS: Gabapentin 100 MG Capsule PO (14:12)
[2019-07-08] MEDS: Tamsulosin HCl 0.4 MG Capsule PO (14:12)
[2019-07-08] MEDS: Lisinopril 20 MG Tablet PO (14:12)
--- NOTE | 2019-07-08 18:38 | PCM.PN.SRG ---
Subjective: much improved abdominal discomfort following paracentesis - Physical Exam General: Alert, Oriented x3, Cooperative Lungs: Clear to auscultation, Normal air movement Cardiovascular: Regular rate, No murmurs Abdomen: Bowel Sounds Present, Soft, Non Tender Vital Signs Temp Pulse Resp BP Pulse Ox 98.6 F 63 18 127/51 H 95 07/08/19 12:55 07/08/19 14:11 07/08/19 12:55 07/08/19 12:55 07/08/19 12:55 Oxygen Delivery Method [3] Room Air Oxygen Delivery Method [2] Room Air Oxygen Delivery Method [1 ( Room Air Initial Baseline)] Oxygen Delivery Method Room Air Weight: 84.6 kg Body Mass Index (BMI) 25.9 Finger Stick Blood Glucose 106 Intake and Output for Last 24 Hours 07/06/19 07/07/19 07/08/19 23:59 23:59 23:59 Intake Total 2525.42 / 2925.42 2370.00 / 2670.00 2326.25 / 2326.25 Output Total 200 / 200 650 / 650 Balance 2325.42 / 2725.42 2370.00 / 2345.00 1676.25 / 1676.25 Laboratory Tests Past 24 Hrs 07/08/19 07/08/19 05:30 05:30 WBC 9.1 RBC 3.14 L Hgb 8.7 L Hct 27.7 L MCV 88.2 MCH 27.7 MCHC 31.4 L RDW Std Deviation 52.0 H RDW Coeff of Ashley 16.1 H Plt Count 229 MPV 9.4 Immature Gran % (Auto) 0.300 Neut % (Auto) 75.4 H Lymph % (Auto) 14.7 L [place] % (Auto) 7.5 Eos % (Auto) 1.6 Baso % (Auto) 0.5 Absolute Neuts (auto) 6.9 Absolute Lymphs (auto) 1.34 Nucleated RBC % 0 Sodium 143 Potassium 4.0 Chloride 113 H Carbon Dioxide 25.0 Anion Gap 5 BUN 15 Creatinine 1.00 Estim Creat Clear Calc 69.03 Est GFR (MDRD) Af Amer 94 Est GFR (MDRD) Non-Af 78 BUN/Creatinine Ratio 15.1 Glucose 120 H Calcium 7.6 L Total Bilirubin 0.20 AST 24 ALT 13 L Alkaline Phosphatase 105 Total Protein 4.8 L Albumin 1.7 L Globulin 3.1 Albumin/Globulin Ratio 0.5 L POC Glucose 07/08/19 07/08/19 07/07/19 09:40 06:17 22:04 POC Glucose 81 100 103 Medical Necessity - Tobacco Use Smoking Status: Former smoker Tobacco Use: Non-smoker Assessment/Plan All Active Problems Ulcer of right lower extremity (Acute) Intractable abdominal pain (Acute) Right shoulder pain (Acute) Malignant ascites (Acute) malignant ascites with apparent carcinomatosis-unknown etiology patient was seen by Dr. Arnold. I did speak to Dr. Waters. The patient apparently preferred to have his procedures performed locally then travel to [place]. He underwent paracentesis yielding 5 L removed. he notes he is much more comfortable. initial smear did not demonstrate malignant cells, cell block suggested atypical versus malignant cells but was not obvious enough to be called by our pathologist. He is planning for additional several blocks and possibly administered. He is not certain he will call this malignant Review of the records, he had upper endoscopy performed 3 years previously and colonoscopy performed 2 years previously. The patient says he is opposed to repeat colonoscopy. Dr. Waters and I agreed to proceed with upper endoscopy and not currently the colonoscopy. Upper endoscopy demonstrated a small hiatal hernia and mild to moderate gastritis and distal esophagitis. There were no signs of malignancy. The patient's laboratory parameters demonstrated significant malnutrition with low protein and albumin levels a 2.2. Would recommend nutrition consult and nutritional support. in discussions with Dr. Waters, the hospitalist and the family, since his pain is improved tremendously and he is tolerating a diet he can be discharged from the hospital with plans for follow-up of omental biopsy if the cell block returns is negative
[2019-07-09 11:12] LABS: Pathologist Comment/Body Fluid Reviewed
--- NOTE | 2019-07-09 11:45 | OP.ENDO_ITS ---
07/09/2019 Georgi Marquez MD [address] [place] [address] Re : Upper GI endoscopy procedure for Zana Clayton Dear Dr. Marquez This procedure was performed on Monday, July 08, 2019. My impressions and recommendations are as follows: Impressions : - Normal examined jejunum. - Normal examined duodenum. - Gastritis. Biopsied. - Small hiatal hernia. - Non-severe reflux esophagitis. Recommendations : - Put patient on a clear liquid diet starting today. - Continue present medications. My findings are described in the full procedure note, which is enclosed. If I can be of further assistance, please feel free to contact me at Doctor phone number(s): , Work: . Sincerely, Triston Kumar MD 07/09/2019 11:44:32 AM This report has been signed electronically.
--- NOTE | 2019-07-09 13:20 | CASEMGMT ---
CHELE PINEDA Discharge Follow-Up Phone Call. Lace: 12 Strata: 4 Discharge Date: 07/08/19 Adm Dx: Intractable Abdominal Pain, N/V Attempted discharge follow-up phone call. No answer. Message left for pt to return call to MS3 Vicky ELAINE CM, if he has any questions/concerns about the discharge instructions, medications, or follow-up appts. Phone number provided. Mike POSEY RN, CM
[2019-07-11 15:16] LABS: Hemoglobin A1c 8.6 % (4.2-6.3)
== END 2019-07-08 16:17 | disposition home or self-care (01) | DRG 375 ==
LOC: ED 20:24 → MS3 07-06 00:14
PROVIDERS: Family Medicine; Student in an Organized Health Care Education/Training Program; Surgery; Admitting Provider Family Medicine; Emergency Provider Emergency Medicine; Family Provider Family Medicine Geriatric Medicine; PCP Family Medicine Geriatric Medicine; Visit Provider Hospitalist
PROC: 0DJ08ZZ Inspection of Upper Intestinal Tract, Via Natural or Artificial Opening Endoscopic (ICD-10-PCS; CPT 43235; principal; 2019-07-08 10:55)
DX: C78.6 Secondary malignant neoplasm of retroperitoneum and peritoneum (principal); R18.0 Malignant ascites; I25.10 Atherosclerotic heart disease of native coronary artery without angina pectoris; E03.9 Hypothyroidism, unspecified; I10 Essential (primary) hypertension; E11.9 Type 2 diabetes mellitus without complications; N40.0 Benign prostatic hyperplasia without lower urinary tract symptoms; E78.5 Hyperlipidemia, unspecified; Z79.82 Long term (current) use of aspirin; Z95.1 Presence of aortocoronary bypass graft; Z87.891 Personal history of nicotine dependence; Z79.4 Long term (current) use of insulin; Z86.73 Personal history of transient ischemic attack (TIA), and cerebral infarction without residual deficits; Z66 Do not resuscitate; K29.70 Gastritis, unspecified, without bleeding; K44.9 Diaphragmatic hernia without obstruction or gangrene; N20.0 Calculus of kidney; Z85.51 Personal history of malignant neoplasm of bladder; Z79.02 Long term (current) use of antithrombotics/antiplatelets; Z88.1 Allergy status to other antibiotic agents; Z95.5 Presence of coronary angioplasty implant and graft; Z90.49 Acquired absence of other specified parts of digestive tract; Z83.3 Family history of diabetes mellitus
CPT/HCPCS: 36415; 49083; 71045; 71260; 74022; 74176; 80048; 80053; 80076; 81001; 82945; 82947; 82962; 83036; 83615; 83690; 83735; 84100; 84157; 84443; 84484; 85025; 85610; 85730; 88108; 88305; 88313; 88342; 89050; 92610; 93005; 96361; 96374; 96375; 97110; 97116; 97162; 97166; 97530; 97802; 99284; 99406; J7030; Q9967; A4216; J2405; J3490

== ENCOUNTER 2019-07-15 13:53 | Observation (INO) | payer MEDICARE, SELFPAY ==
[2019-07-08 09:37] VITALS: BMI 25.9
--- NOTE | 2019-07-12 16:59 | HP.PCM_ITS ---
History and Physical Date of Admission: 07/14/19 Reason for Consult Date of Consultation: 07/06/19 Reason for Consultation: abdominal carcinomatosis-unknown origin History of Present Illness: The patient is a 73 year old M who is noted increasing abdominal distention for the last few months and now increasing abdominal pain for the last 4 weeks. The patient is followed by his primary care physician who felt this is likely constipation. the patient's daughter is a nurse practitioner in cardiology in the [facility]. She had the patient presents to [facility] emergency department. A CT scan of the abdomen and pelvis was obtained there which returned as ascites with significant peritoneal nodules. my review the CT scan without contrast demonstrates significant ascites, no obvious liver lesions with post cholecystectomy changes in the gallbladder fossa. there is contrast in his colon from his previous CT scan performed at [facility]. Otherwise difficult to assess for any GI tract abnormalities. He definitely has what appears to be studding of his omentum. upon further questioning, the patient noted decreased appetite for at least the last few months and has been likely losing weight throughout that time. He was referred to Dr. Soria, oncology clinic clinic [facility]. There were plans for the patient to hold his Plavix and then undergo a paracentesis with biopsy/ascites analysis and upper endoscopy. The patient recalls he had a colonoscopy with single polypectomy early in 2018 performed at the [facility] surgery [place] by Dr. Marko Johnson. I see records of a pathology report for colonoscopy from May 21, 2017. the patient states that he does not wish to undergo repeat colonoscopy but would be amenable to upper endoscopy. The patient had upper endoscopy performed by Dr. Fransisco Florez at the [facility] endoscopy Center on April 20, 2016 for a complaint of heartburn/reflux. he was found to have bile reflux and otherwise an unremarkable upper endoscopy at that time. The patient has a history of significant coronary disease having undergone coronary bypass grafting ?4 along with PTCA after being judged to be poorly reconstructable with poor conduits available at his last attempt at reconstruction. he had a TIA in July 2018. His first RI was in 1992. He has a history of a hiatal hernia, insulin-dependent diabetes, he had a previous finding of a kidney stone and had an subtle finding of a small bladder cancer at that time. He states he has been followed with intermittent cystoscopies and there've been no residual abnormalities in his bladder. his previous abdominal surgeries as well as a cholecystectomy in 1997. He notes an allergy to ciprofloxacin. he has been holding his Plavix since Sunday. I performed upper endoscopy which was negative. The patient had a paracentesis which returned as bloody fluid but was not able to be conclusively positive for malignant cells. Additional cellblock samples will be obtained. In discussions with Dr. Waters and the fact that the patient's ascites and to returning, we have elected to perform diagnostic laparoscopy with visually directed omental biopsy and tunneled abdominal paracentesis/Pleurx catheter. Past Medical History Past Medical History (Chronic Problems): Chronic Problems Bilateral lower extremity edema (Chronic) History of bladder cancer (Chronic) Hyperlipidemia (Chronic) Diabetes (Chronic) Hypertension (Chronic) CAD (coronary artery disease) (Chronic) Allergies ciprofloxacin HCl [From Cipro] Adverse Reaction (Verified 07/05/19 19:24) Pain in joints Home Medications: Ambulatory Orders Medication Instructions Recorded Levothyroxine [Synthroid] 25 mcg PO DAILY 09/09/13 Metoprolol Tartrate [Lopressor 25 mg PO BID 09/09/13 (beta gary)] Rosuvastatin Calcium [Crestor] 20 mg PO QHS 09/09/13 Tamsulosin HCl [Flomax] 0.4 mg PO DAILY 09/09/13 ALPRAZolam [Xanax] 0.25 mg PO QHS PRN 04/12/16 Aspirin [Aspirin, Baby] 81 mg PO DAILY@0800 11/24/16 Clopidogrel Bisulfate [Plavix] 75 mg PO DAILY 11/24/16 Finasteride 5 mg PO QHS 11/24/16 Insulin Degludec [Tresiba 60 unit SQ DAILY 11/24/16 Flextouch U-100] Pantoprazole Sodium [Protonix] 20 mg PO DAILY 11/24/16 Glimepiride [Amaryl] 4 mg PO BID 07/03/19 Lisinopril [Zestril] 10 mg PO BID 07/03/19 Ondansetron [Zofran Odt] 4 mg PO Q8H PRN PRN #20 tab 07/03/19 Surgical History: - - CABG x4, PCI x 8-9, cholecystectomy, bladder cancer surgery, cystoscopy with lithotripsy. Psychiatric History: Anxiety Lives: Alone Smoking Status: Former smoker Tobacco Use: Non-smoker Alcohol: None Drugs: None - *Family History Paternal History Items: Diabetes Maternal History Items: Heart Disease Review of Systems Constitutional: Reports: Anorexia, Weakness, Fatigue HEENT: Denies: Head Aches, Sinus Congestion, Sinus Drainage Cardiovascular: Denies: Chest Pain, Palpitations Respiratory: Denies: Cough, Shortness of breath at rest, Sputum production Gastrointestinal: Reports: Abdominal Pain. Denies: Nausea, Vomiting Genitourinary: Denies: Dysuria Musculoskeletal: Denies: Joint Pain, Joint Tenderness Skin: Denies: Rash, Wounds Neurological: Denies: Numbness, Tingling, Focal weakness Psychiatric: Denies: Anxiety, Depression, Homicidal Ideations, Suicidal Ideations Hematologic/ Lymphatic: Denies: Easy Bruising, Easy Bleeding Patient Problems: Active and Suspected Problems Intractable abdominal pain (Acute) Right shoulder pain (Acute) Malignant ascites (Acute) - Physical Exam General: Alert, Oriented x3, Cooperative Lungs: Clear to auscultation, Normal air movement Cardiovascular: Regular rate, Regular Rhythm Abdomen: Bowel Sounds Present, Soft, Distended, Tender - mild diffusely tender without peritoneal signs Vital Signs Temp Pulse Resp BP Pulse Ox 97.6 F L 82 18 118/55 L 92 07/06/19 06:02 07/06/19 08:56 07/06/19 06:02 07/06/19 06:02 07/06/19 07:31 Oxygen Delivery Method Room Air Weight: 86.7 kg Body Mass Index (BMI) 26.4 Finger Stick Blood Glucose 106 Intake and Output for Last 24 Hours 07/04/19 07/05/19 07/06/19 23:59 23:59 23:59 Intake Total 1000 / 1000 250 / 250 Balance 1000 / 1000 250 / 250 Laboratory Tests Past 24 Hrs 07/05/19 07/05/19 07/05/19 19:40 19:40 19:40 WBC 7.3 RBC 4.15 L Hgb 11.3 L Hct 36.4 L MCV 87.7 MCH 27.2 MCHC 31.0 L RDW Std Deviation 50.9 H RDW Coeff of Ashley 15.9 H Plt Count 324 MPV 9.4 Immature Gran % (Auto) 0.400 Neut % (Auto) 68.3 Lymph % (Auto) 17.1 L [place] % (Auto) 12.8 H Eos % (Auto) 0.7 Baso % (Auto) 0.7 Absolute Neuts (auto) 5.0 Absolute Lymphs (auto) 1.24 Nucleated RBC % 0 PT INR APTT Sodium 138 Potassium 5.1 Chloride 107 Carbon Dioxide 29.0 Anion Gap 2 L BUN 19 H Creatinine 1.26 Estim Creat Clear Calc 54.78 Est GFR (MDRD) Af Amer 72 Est GFR (MDRD) Non-Af 59 L BUN/Creatinine Ratio 15.1 Glucose 92 Calcium 9.0 Phosphorus Magnesium Total Bilirubin 0.50 Direct Bilirubin 0.13 AST 25 ALT 18 Alkaline Phosphatase 113 Troponin I Total Protein 7.1 Albumin 2.9 L Globulin 4.2 Albumin/Globulin Ratio Lipase 48 L Urine Color Urine Clarity Urine pH Ur Specific [place] Urine Protein Urine Glucose (UA) Urine Ketones Urine Occult Blood Urine Nitrite Urine Bilirubin Urine Urobilinogen Ur Leukocyte Esterase Urine RBC Urine WBC Ur Squamous Epith Cells Ur Transition Epith Cell Urine Bacteria Urine Mucus 07/05/19 07/06/19 07/06/19 22:55 01:44 01:44 WBC RBC Hgb Hct MCV MCH MCHC RDW Std Deviation RDW Coeff of [place] Plt Count MPV Immature Gran % (Auto) Neut % (Auto) Lymph % (Auto) [place] % (Auto) Eos % (Auto) Baso % (Auto) Absolute Neuts (auto) Absolute Lymphs (auto) Nucleated RBC % PT INR APTT Sodium Potassium Chloride Carbon Dioxide Anion Gap BUN Creatinine Estim Creat Clear Calc Est GFR (MDRD) Af Amer Est GFR (MDRD) Non-Af BUN/Creatinine Ratio Glucose 64 L Calcium Phosphorus 2.6 Magnesium 2.1 Total Bilirubin Direct Bilirubin AST ALT Alkaline Phosphatase Troponin I < 0.015 Total Protein Albumin Globulin Albumin/Globulin Ratio Lipase Urine Color Yellow Urine Clarity Clear Urine pH 6.0 Ur Specific [place] 1.015 Urine Protein Negative Urine Glucose (UA) Normal Urine Ketones 5 H Urine Occult Blood Negative Urine Nitrite Negative Urine Bilirubin Negative Urine Urobilinogen Normal Ur Leukocyte Esterase Negative Urine RBC 0 SEEN Urine WBC 0-5 SEEN Ur Squamous Epith Cells 0 SEEN Ur Transition Epith Cell 0-5 SEEN Urine Bacteria 0 SEEN Urine Mucus RARE 07/06/19 07/06/19 07/06/19 04:29 04:29 04:29 WBC 5.4 RBC 3.39 L Hgb 9.3 L Hct 30.0 L MCV 88.5 MCH 27.4 MCHC 31.0 L RDW Std Deviation 52.1 H RDW Coeff of Ashley 16.0 H Plt Count 244 MPV 8.9 Immature Gran % (Auto) 0.400 Neut % (Auto) 62.3 Lymph % (Auto) 22.6 [place] % (Auto) 12.9 H Eos % (Auto) 0.9 Baso % (Auto) 0.9 Absolute Neuts (auto) 3.4 Absolute Lymphs (auto) 1.22 Nucleated RBC % 0 PT 15.0 H INR 1.2 APTT 30.8 Sodium 142 Potassium 4.7 Chloride 110 H Carbon Dioxide 27.0 Anion Gap 5 BUN 18 Creatinine 1.17 Estim Creat Clear Calc 59.00 Est GFR (MDRD) Af Amer 78 Est GFR (MDRD) Non-Af 65 BUN/Creatinine Ratio 15.4 Glucose 132 H Calcium 7.9 L Phosphorus Magnesium Total Bilirubin 0.50 Direct Bilirubin AST 24 ALT 15 L Alkaline Phosphatase 93 Troponin I Total Protein 5.6 L Albumin 2.2 L Globulin 3.4 Albumin/Globulin Ratio 0.6 L Lipase Urine Color Urine Clarity Urine pH Ur Specific [place] Urine Protein Urine Glucose (UA) Urine Ketones Urine Occult Blood Urine Nitrite Urine Bilirubin Urine Urobilinogen Ur Leukocyte Esterase Urine RBC Urine WBC Ur Squamous Epith Cells Ur Transition Epith Cell Urine Bacteria Urine Mucus 07/06/19 07/06/19 04:29 07:30 WBC RBC Hgb Hct MCV MCH MCHC RDW Std Deviation RDW Coeff of [place] Plt Count MPV Immature Gran % (Auto) Neut % (Auto) Lymph % (Auto) [place] % (Auto) Eos % (Auto) Baso % (Auto) Absolute Neuts (auto) Absolute Lymphs (auto) Nucleated RBC % PT INR APTT Sodium Potassium Chloride Carbon Dioxide Anion Gap BUN Creatinine Estim Creat Clear Calc Est GFR (MDRD) Af Amer Est GFR (MDRD) Non-Af BUN/Creatinine Ratio Glucose Calcium Phosphorus Magnesium Total Bilirubin Direct Bilirubin AST ALT Alkaline Phosphatase Troponin I < 0.015 < 0.015 Total Protein Albumin Globulin Albumin/Globulin Ratio Lipase Urine Color Urine Clarity Urine pH Ur Specific [place] Urine Protein Urine Glucose (UA) Urine Ketones Urine Occult Blood Urine Nitrite Urine Bilirubin Urine Urobilinogen Ur Leukocyte Esterase Urine RBC Urine WBC Ur Squamous Epith Cells Ur Transition Epith Cell Urine Bacteria Urine Mucus POC Glucose 07/06/19 07/06/19 07/06/19 06:08 01:56 01:27 POC Glucose 98 61 L 42 L* Assessment/Plan All Active Problems Ulcer of right lower extremity (Acute) Intractable abdominal pain (Acute) Right shoulder pain (Acute) Malignant ascites (Acute) I plan to perform diagnostic laparoscopy with visually directed omental biopsy and tunneled abdominal paracentesis/Pleurx catheter. The patient understands in the risks, benefits, possible competition alternatives and consents to the planned procedure. we'll plan for 2 g of Ancef perioperatively and sequential compression devices. 07/06/19 0937 <Electronically signed by Triston noyola MD> Date _ Triston Kumar MD
[2019-07-14] VITALS (16 sets, daily range): BP systolic 111–145; BP diastolic 50–70; PULSE 55–76; RESP 15–18; TEMP 36.1–37.4; O2SAT 92–100; BMI 25.5
--- NOTE | 2019-07-14 | IMM_PTH ---
PATIENT: DEBI FAIRCHILD LOC: MS3 U#:[id number] AGE/SX: 73/M ROOM: AK313 RE07/15/[address]: Dr. Triston Kumar MD : 1945 BED: 1 DIS: 07/15/2019 SPEC #: [id number] RECD: 07/15/19 11:32 STATUS: MARISA REQ #: [id number] ZOE: 07/14/19 00:[address]: Triston Kumar DEPT: IMMUNOHISTOCHEMISTRY RECD BY: Maria Teresa Mckinney ENTERED: 07/15/19 11:38 SP TYPE: IMMUNO OTHR DR: Dr. Georgi Marquez MD Tissues: A - Abdomen, NOS CY - Abdomen, NOS Procedures: RCC (add) MSH2 (add) MLH-1 (add) MSH6 (add) Anti-PMS2 (add) NAPSIN A (add) CK20 (add) CK5-6 (add) CK8 (add) SWIFT-2 (add) HEP PAR (add) KI-67 (add) P53 (add) TTF1 (add) Pankeratin (add) P40 (add) CDX2 (add) PSAP (add) CK7 (initial) PHYSICIAN & [place] [id number] SPECIMEN INFORMATION: Tissue Source: A - Falciform ligament with multiple tumors Clinical Info: Intractable abdominal pain; right shoulder pain; malignant ascites Specimen Number: [id number] CPT code: 03678, 24715 x18 METHODOLOGY: Deparaffinized sections of prefer/formalin-fixed tissue or PAP/DQ stained slides are incubated with monoclonal/polyclonal antibodies/oligonucleotide probes. Localization is made via biotin free immunoperoxidase method. Appropriate controls are performed and reacted as expected. Results on target cell population are indicated in the following table: RESULTS: ANTIBODY / CLONE RESULT Block A2 AE1-3 (AE1/AE3/PCK26) positive CK7 (OV-TL12/30) negative CK8 (91mbqtH33) positive CK20 (KS20.8) positive TTF-1 (8G7G3/1) negative Napsin A (Rabbit Polyclonal) positive HepPar (OCh1E5) negative RCC (PN-15) negative PSAP (PASE/4LJ) negative CK5-6 (D5 & 1684) negative P40 (BC28) negative (high background staining) These tests were developed and their performance characteristics determined by [facility]. They may not have been cleared or approved by the U.S. Food and Drug Administration. The FDA has determined that such clearance or approval is not necessary. INTERPRETATION: A. 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 See comment. SJ:dana 07/16/19 Comment: IHC profile favors lower gastrointestinal tract primary (colon/appendix). Clinical correlation is necessary. Case has been reviewed in consultation with Dr. Barboza who concurs with the above diagnosis. IDC:AM ADDENDUM ADDENDUM ADDENDUM ADDENDUM ADDENDUM ADDENDUM ADDENDUM ADDENDUM ADDENDUM ADDENDUM ADDENDUM ADDENDUM ADDENDUM ADDENDUM ADDENDUM ADDENDUM 07/23/2019 10:33 ADDENDUM 07/23/2019 10:33 ADDENDUM 07/23/2019 10:33 ADDENDUM 07/23/2019 10:33 ADDENDUM 07/23/2019 10:33 ANTIBODY / CLONE RESULT Block A2 MLH1 (M1) positive MSH2 (25D12) positive MSH6 (44) positive PMS2 (JNK5787) positive P53 (DO-7) negative Ki-67 (30-9) positive, high SWIFT-2 (SP21) positive CDX2 ([id number]) positive Result of Microsatellite Instability Study: Negative (no loss of mismatch protein; no microsatellite instability detected). SJ:dana 07/23/19
--- NOTE | 2019-07-14 | IMM_PTH ---
PATIENT: DEBI FAIRCHILD LOC: MS3 U#:[id number] AGE/SX: 73/M ROOM: MS313 RE07/15/[address]: Dr. Triston Kumar MD : 1945 BED: 1 DIS: 07/15/2019 SPEC #: [id number] RECD: 07/15/19 10:25 STATUS: MARISA REQ #: [id number] ZOE: 07/14/19 00:[address]: Triston Kumar DEPT: IMMUNOHISTOCHEMISTRY RECD BY: Maria Teresa Mckinney ENTERED: 07/16/19 10:29 SP TYPE: IMMUNO OTHR DR: Dr. Georgi Marquez MD Tissues: Abdomen, NOS Procedures: [place] Ret (add) CK20 (add) CK8 (add) MACRO (add) Vimentin (add) CK7 (initial) PHYSICIAN & INSTITUTION [place] [id number] SPECIMEN INFORMATION: Tissue Source: Ascites fluid Clinical Info: Intractable abdominal pain, right shoulder pain; malignant ascites Specimen Number: [id number] CPT code: 60779, 33692 x5 METHODOLOGY: Deparaffinized sections of prefer/formalin-fixed tissue or PAP/DQ stained slides are incubated with monoclonal/polyclonal antibodies/oligonucleotide probes. Localization is made via biotin free immunoperoxidase method. Appropriate controls are performed and reacted as expected. Results on target cell population are indicated in the following table: RESULTS: ANTIBODY / CLONE RESULT CK7 (OV-TL12/30) negative CK8 (99uxykP31) positive CK20 (KS20.8) positive, rare cells Vimentin (V9) negative Macro (HAM-56) negative CALRET (polyclonal) negative These tests were developed and their performance characteristics determined by [facility]. They may not have been cleared or approved by the U.S. Food and Drug Administration. The FDA has determined that such clearance or approval is not necessary. INTERPRETATION: Ascites fluid: A few atypical cells are noted, suspicious for malignancy. SJ:dana 07/16/19 Case has been reviewed in consultation with Dr. Barboza who concurs with the above diagnosis. IDC:AM
--- NOTE | 2019-07-14 | MASS_PTH ---
PATIENT: DEBI FAIRCHILD LOC: MS3 U#:[id number] AGE/SX: 73/M ROOM: OK313 RE07/15/[address]: Dr. Triston Kumar MD : 1945 BED: 1 DIS: 07/15/2019 SPEC #: [id number] RECD: 07/14/19 08:08 STATUS: MARISA REQ #: [id number] ZOE: 07/14/19 00:[address]: Triston Kumar DEPT: SURGICAL PATHOLOGY RECD BY: Maria Teresa Mckinney ENTERED: 07/14/19 09:37 SP TYPE: Mass OTHR DR: Dr. Georgi Marquez MD Tissues: A - Liver, NOS B - Peritoneal cavity, NOS Procedures: Frozen Section (charge) Surgery Specimen Level IV Surgery Specimen Level V HEADER OPERATION: Diagnostic laparoscopy, omental and falciform ligament biopsy PRE-OP DIAGNOSIS: Intractable abdominal pain; right shoulder pain; malignant ascites TISSUE SUBMITTED: A - Falciform ligament with multiple tumors, frozen section; B - Omental biopsy FROZEN SECTION DIAGNOSIS A. 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 SJ:dana 07/14/19 MICROSCOPIC DIAGNOSIS A. 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 See comment. B. 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 SJ:dana 07/15/19 COMMENT A. Immunohistochemistry ([id number]) supports the above diagnosis and favors lower gastrointestinal tract primary (colon/appendix). Mucin stain with matched control is used in the evaluation of the specimen and tumor cell are positive for mucin. Extracellular mucin is also noted. B. Mucin stain with matched control is used in the evaluation of the specimen and tumor cell are positive for mucin. Extracellular mucin is also noted. Correlation with clinical findings and appropriate follow up are necessary. Please make reference to previous specimen ([id number]) paracentesis fluid for cytology with diagnosis of rare atypical epithelioid cells suspicious for malignancy. Case has been reviewed in consultation with Dr. Barboza who concurs with the above diagnosis. IDC:AM MICROSCOPIC DESCRIPTION Slides are reviewed. GROSS DESCRIPTION A - Received fresh for frozen section diagnosis labeled with the patient's name is a specimen designated falciform ligament with multiple tumors. The specimen consists of a piece of adipose tissue measuring 8 x 4 x 1 cm. Multiple brumfield-white indurated nodules are noted measuring 0.2 to 0.3 cm in greatest dimension. Two sections are submitted for frozen section diagnosis. Chief Radiology sections are submitted in five cassettes as follows: 1 - frozen section, 2-5 - more sections. / LAUREL:dana 07/14/19 B - Received in fixative is one container labeled with the patient's name and designated omental biopsy. The specimen consists of a piece of brumfield, indurated tissue measuring 3.5 x 1.5 x 0.5 cm. The specimen is serially sectioned and submitted entirely in two cassettes. / LAUREL:dana 07/14/19 TC:0 CPT: 94827 x2, 73304, 33654 x2
[2019-07-14 05:56] LABS: Bedside Glucose 304 mg/dL (70-110)
[2019-07-14] MEDS: Lactated Ringers 1,000 ML 100 ML IV ×3 (06:14→21:01)
--- NOTE | 2019-07-14 07:15 | FLU_PTH ---
PATIENT: DEBI FAIRCHILD LOC: MS3 U#:[id number] AGE/SX: 73/M ROOM: MS313 RE07/15/[address]: Dr. Triston Kumar MD : 1945 BED: 1 DIS: 07/15/2019 SPEC #: [id number] RECD: 07/14/19 12:04 STATUS: MARISA RELorena #: [id number] ZOE: 07/14/19 07:[address]: Triston Kumar DEPT: CYTOLOGY RECD BY: Zac Juarez ENTERED: 07/14/19 12:05 SP TYPE: Fluid OTHR DR: Dr. Georgi Marquez MD Tissues: Abdomen, NOS Procedures: Special Stain Group II Surgery Specimen Level IV Cytospin Fluid HEADER OPERATION: Diagnostic laparoscopy, omental and falciform ligament biopsy PRE-OP DIAGNOSIS: Intractable abdominal pain; right shoulder pain; malignant ascites TISSUE SUBMITTED: Ascites fluid for cytology DIAGNOSIS CYTOLOGY Ascites fluid for cytology (cytospin and cell block): Atypical cells noted suspicious for malignancy. See comment. SJ:dana 07/15/19 COMMENT Mucin stain with matched control is used in the evaluation of the specimen, Extracelluar mucin is noted. Rare cells are positive for mucin. Immunohistochemistry ([id number]) supports the above diagnosis, rare CK20 positive cells are noted.. Pleases also made reference to corresponding surgical specimen ([id number]) falciform ligament with multiple tumor and omental biopsy with diagnosis of metastatic carcinoma with signet ring cell features. Correlation with clinical findings and appropriate follow up are necessary. Case has been reviewed in consultation with Dr. Barboza who concurs with the above diagnosis. IDC:AM CYTOLOGY STUDY Slides are reviewed. CYTOLOGY GROSS Received is 2000 ml of red cloudy fluid labeled with the patient's name and and designated per the requisition as ascites. Submitted for cytology preparation including cell block. / dana 07/14/19 TC:5 CPT: 42266, 72555, 95029
[2019-07-14] MEDS: Cefazolin 2 GM in 0.9% Normal Saline 100 ML IV (07:16)
[2019-07-14] MEDS: Bupivacaine Mpf 0.5% 30 ML VIAL (07:39)
--- NOTE | 2019-07-14 08:39 | OP.PCM_ITS ---
Report of Operation Date of Procedure: 07/14/19 Pre-Operative Diagnosis: intraabdominal malignancy of unknown primary, malignant ascites Post-Operative Diagnosis: intraabdominal malignancy of unknown primary, malignant ascites - advanced carcinomatosis, successful peritoneal catheter placement Surgery/Procedure Performed:: diagnostic laparoscopy, laparoscopic biopsy of falciform and omentum, aspiration of ascites, tunneled peritoneal catheter/pleurex catheter drain government affairs fellow: None government affairs fellow: Matthew Hodgson Type of Anesthesia:: General Anesthesiologist: Ervin Fernandez - ASA3 Specimen's removed: ascites, falicform, omental biopsy Drains: pleurex catheter placed - 4.8 liters ascites removed Estimated Blood Loss (mL): minimal - Fluids Replaced: 800 Description of Procedure: The patient was brought to the operating suite. Sign in was performed verifying patient, site, procedure, position, and DVT prophylaxis with SCDs. Patient received 2 g of Ancef. Following induction of general anesthetic. and evaluation with ultrasound again demonstrated significant reaccumulation of his abdominal ascites. The area of the right inferior epigastric vessels was marked on the skin to avoid injury during tunneled catheter placement. The patient?s abdomen was prepped and draped in the usual fashion. Timeout was performed verifying patient, site, position. Local anesthetic was injected below the umbilicus. Incision made and dissection carried down to the umbilical root fascia. 2 stay sutures were placed. Incision made in the fascia, the peritoneum entered under direct visualization. A 10 mm Martinez trocar was inserted and secured with the stay sutures. Pneumoperitoneum to 15 mmHg was insufflated. 5mm ports were placed in the right lower and left lower paramedian positions. Visual inspection revealed extensive bloody ascites again. This was aspirated and 4 L of the total of 4.8 L of ascitic fluid was sent for cytology in the event that this was felt necessary by the pathologist. Visual inspection reveal ed multiple tumor nodules throughout the peritoneum encompassing the diaphragm, falciform, anterior peritoneum and lateral peritoneal areas area did nodules were also present down in the midline near the bladder some of which coalesced together to perform larger masses. The liver and stomach appeared uninvolved. The omentum was caked and extensively replaced with tumor appearing masses. The sigmoid colon was mobile. The cecum was collapsed but the base of the cecum where the appendix was expected to be seen was densely adherent to the lateral peritoneal reflection. This suggested that the appendix was the site of origin of his potential problems versus encased in tumor. At this point, Harmonic scalpel was used to divide the falciform ligament from just above the umbilicus up to the edge of the liver with multiple nodules along the falciform being sent as the simplest safest way to obtain expected biopsy. Once this was completed this was sent for evaluation and asked to have frozen section performed on one of these nodules. While we're waiting for frozen section results, a portion of inferior aspect of the right lower quadrant omentum was dissected off the remaining omentum using Harmonic scalpel and sent for permanent evaluation. 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 this point a guidewire was placed through the right lower quadrant 5 manner port site and the 5 port removed. The Pleurx catheter was measured for the anticipated exit from the skin site incision made and the catheter tunneled from that site the wire site. Pneumoperitoneum was reestablished. the catheter was noted to sit nicely in the pelvis and was adjusted so was the deepest portion of the pelvis. the remaining 5 mm 5mm port was removed under direct visualization with no signs of bleeding. Pneumoperitoneum was released. The Martinez trocar was removed. The umbilical fascial suture was secured. The skin was closed with interrupted 4-0 Monocryl subcuticular sutures. the Pleurx catheter was secured with 3-0 silk suture. Steri-Strips and bandages were applied. The patient was brought to recovery room in stable condition.
--- NOTE | 2019-07-14 08:51 | SUR.PHASEI ---
blood glucose 287, will call anesthesia to advise
[2019-07-14 08:55] LABS: Bedside Glucose 287 mg/dL (70-110)
--- NOTE | 2019-07-14 08:56 | SUR.PHASEI ---
8 units insulin ordered by anesthesia
[2019-07-14] MEDS: Insulin Lispro 100 UNIT/ML INSULN.PEN 8 UNIT SC (09:00)
[2019-07-14 11:36] LABS: Bedside Glucose 300 mg/dL (70-110)
[2019-07-14] MEDS: Clopidogrel Bisulfate 75 MG Tablet PO (12:04)
[2019-07-14] MEDS: Cefazolin 1 GM/50 ML BAG IV ×2 (15:03→23:03)
[2019-07-14] MEDS: Morphine 2 MG/ML Syringe IV ×2 (15:03→16:53)
[2019-07-14] MEDS: Ondansetron 4 MG/2 ML Vial IV (15:23)
[2019-07-14 16:40] LABS: Bedside Glucose 251 mg/dL (70-110)
[2019-07-14] MEDS: 0.9% NaCl Peripheral Flush Adult/Peds IV (16:53)
--- NOTE | 2019-07-14 17:05 | CASEMGMT ---
Social Work Note RN updated this worker that pt's daughter Sangita called in stating Hospice services will need to be arranged. RN states she will speak with Dr. Kumar. SW in to speak with pt. SW introduced self and role at [facility]. Pt is alert and orientated x3. SW educated pt on Palliative Care and Hospice. Pt states that he was living at home and was independent with ADLs. Pt states that originally he had planed to stay at his brother's house as his brother as an on suite for pt. Pt states I will need to talk to George again about that. Pt states that he saw Dr. Waters last week and he has another appointment to see Dr. Waters on Sunday the results. Pt states just two weeks ago they thought I had a bowel blockage and now I have stage 4 cancer. SW offered support to pt. RN informed this worker and pt that Dr. Kumar will be talking with pt and pt's daughter tomorrow in regards to Hospice. SW informed pt that this worker will be available tomorrow as well to confirm discharge plans in regards to Hospice. Pt states understanding, denied additional needs or concerns at this time. Vicky Greene DIVER'S TENDER, ELEVATOR SERVICE TECHNICIAN
[2019-07-14] MEDS: Insulin Lispro 100 UNIT/ML INSULN.PEN SC ×2 (17:28→21:50)
[2019-07-14] MEDS: Glimepiride 4 MG Tablet PO (17:29)
[2019-07-14] MEDS: Glucerna Shake 120 ML LIQUID PO (17:29)
[2019-07-14] MEDS: Metoprolol Tartrate 25 MG Tablet PO (21:49)
[2019-07-14] MEDS: Finasteride 5 MG Tablet PO (21:49)
[2019-07-14 22:05] LABS: Bedside Glucose 216 mg/dL (70-110)
[2019-07-14] MEDS: ALPRAZolam 0.25 MG Tablet PO (23:17)
--- NOTE | 2019-07-15 01:48 | NURSING ---
Continuous SpO2 alarming 83% on RA. Pt placed on 2L O2 via nasal cannula and SpO2 increased to 97%. Pt laying in bed resting with eyes closed. No distress noted.
[2019-07-15 03:39] VITALS: BP 146/68; PULSE 69; RESP 16; TEMP 37.1; O2SAT 94
[2019-07-15] MEDS: 0.9% NaCl Peripheral Flush Adult/Peds IV (03:41)
[2019-07-15] MEDS: Morphine 2 MG/ML Syringe IV (03:41)
[2019-07-15] MEDS: Levothyroxine 25 MCG TABLET PO (06:59)
[2019-07-15] MEDS: Insulin Lispro 100 UNIT/ML INSULN.PEN SC ×2 (06:59→11:34)
[2019-07-15] MEDS: Lactated Ringers 1,000 ML 100 ML IV (07:00)
[2019-07-15 07:10] LABS: Bedside Glucose 205 mg/dL (70-110)
[2019-07-15 08:18] VITALS: BP 133/62; PULSE 65; RESP 18; TEMP 36.4; O2SAT 95
[2019-07-15] MEDS: Glimepiride 4 MG Tablet PO (08:19)
[2019-07-15 08:20] VITALS: PULSE 65
[2019-07-15] MEDS: Pantoprazole Sodium 40 MG Tablet 80 MG PO (08:20)
[2019-07-15] MEDS: Metoprolol Tartrate 25 MG Tablet PO (08:20)
[2019-07-15] MEDS: Aspirin E.C. 81 MG Tablet PO (08:20)
[2019-07-15] MEDS: Clopidogrel Bisulfate 75 MG Tablet PO (08:20)
[2019-07-15] MEDS: Tamsulosin HCl 0.4 MG Capsule PO (08:20)
[2019-07-15] MEDS: Ondansetron ODT 4 MG Tablet PO (11:21)
[2019-07-15 12:15] LABS: Bedside Glucose 235 mg/dL (70-110)
[2019-07-15] MEDS: oxyCODONE 5 MG Tablet PO (13:54)
[2019-07-15 13:58] VITALS: BP 103/56; PULSE 70; RESP 18; TEMP 36.4; O2SAT 94
--- NOTE | 2019-07-15 15:16 | CASEMGMT ---
Social Work Note RN updated this worker that Dr. Kumar is requesting Hospice referral. Pt's daughter Vanessa present in room. SW met with pt and pt's daughter Vanessa. Pt and Vanessa confirm that they would like a hospice referral. SW asked pt about Hospice agencies and pt is agreeable to [facility]. SW explained that this worker will initiate referral to Hospice and they will call to arrange meeting time. Vanessa states she would like to be called ([phone]). SW placed a call to [facility] and provided referral to CHELE Benitez. SW faxed referral. Plan: [facility] to meet with pt and pt's family Vicky Greene BAKER DOUGHNUT, AGRONOMY LOCATION MANAGER
--- NOTE | 2019-07-15 17:04 | NURSING ---
pt refused meds and blood sugar check at this time, pt is being admitted to inpatient hospice
--- NOTE | 2019-07-15 17:16 | PCM.DC ---
You will use the following diet at home:: No restrictions Discharge Activity: Return to Normal Activity, May Not Shower - while drain is fixed but may sponge bath Call your doctor if your incision/area has: Continuous Slow Oozing, Sudden Increased Bleeding, Increased Pain/ Swelling, Increased Redness Call your doctor if you observe: Fever of 101 or Higher, Coldness, Increased Pain Additional Instructions: peritoneal catheter to gravity drainage for now. will transition to intermittent drainage in a few days Allergies/Adverse Reactions: Allergies ciprofloxacin HCl [From Cipro] Adverse Reaction (Verified 07/14/19 05:44) Pain in joints Medications to take at Discharge Levothyroxine [Synthroid] 25 mcg PO DAILY 09/09/13 Metoprolol Tartrate [Lopressor (beta gary)] 25 mg PO BID 09/09/13 Tamsulosin HCl [Flomax] 0.4 mg PO DAILY 09/09/13 ALPRAZolam [Xanax] 0.25 mg PO QHS PRN 04/12/16 Finasteride 5 mg PO QHS 11/24/16 Insulin Degludec [Tresiba Flextouch U-100] 60 unit SQ DAILY 11/24/16 Glimepiride [Amaryl] 4 mg PO BID 07/03/19 Lisinopril [Zestril] 10 mg PO BID 07/03/19 Ondansetron [Zofran Odt] 4 mg PO Q8H PRN PRN #20 tab 07/03/19 Aspirin [Aspir 81] 81 mg PO DAILY 07/11/19 Clopidogrel Bisulfate [Plavix] 75 mg PO DAILY 07/11/19 Pantoprazole Sodium [Protonix] 80 mg PO DAILY 07/11/19 Oxycodone [Oxyir] 5 mg PO Q4H PRN PRN tablet 07/15/19 Orders to be completed after discharge: Hemoglobin A1c Time Frame: 07/11/19, Facility: [facility], Location: Laboratory Primary Care Physician: Georgi Marquez Chi, MD [Primary Care Provider] - Test Results: Test results from this visit will be discussed in further detail at your follow-up appointment, if applicable.
--- NOTE | 2019-07-15 17:19 | DS.PCM_ITS ---
Discharge Date and Diagnosis Date of Admission: 07/14/19 Date of Discharge: 07/15/19 - Primary Discharge Diagnosis signet ring cell carcinomatosis, malignant ascites - Secondary Discharge Diagnosis Chronic Problems Bilateral lower extremity edema (Chronic) History of bladder cancer (Chronic) Hyperlipidemia (Chronic) Diabetes (Chronic) Hypertension (Chronic) CAD (coronary artery disease) (Chronic) Hospital Course and Treatment Operations: None, - - diagnostic laparoscopy, laparoscopic biopsy, Pleurx peritoneal drainage catheter placement Summary of Care Provided: The patient is a 73 year old M with increasing abdominal distention and CT scan findings of advanced carcinomatosis. The patient is a 73 year old M who is noted increasing abdominal distention for the last few months and now increasing abdominal pain for the last 4 weeks. The patient is followed by his primary care physician who felt this is likely constipation. the patient's daughter is a nurse practitioner in cardiology in the [facility]. She had the patient presents to [facility] emergency department. A CT scan of the abdomen and pelvis was obtained there which returned as ascites with significant peritoneal nodules. my review the CT scan without contrast demonstrates significant ascites, no obvious liver lesions with post cholecystectomy changes in the gallbladder fossa. there is contrast in his colon from his previous CT scan performed at [facility]. Otherwise difficult to assess for any GI tract abnormalities. He definitely has what appears to be studding of his omentum. upon further questioning, the patient noted decreased appetite for at least the last few months and has been likely losing weight throughout that time. He was referred [facility] Dr. Soria, [facility]. There were plans for the patient to hold his Plavix and then undergo a paracentesis with biopsy/ascites analysis and upper endoscopy. The patient recalls he had a colonoscopy with single polypectomy early in 2018 performed at the [facility] surgery Center by Dr. Marko Johnson. I see records of a pathology report for colonoscopy from May 21, 2017. the patient states that he does not wish to undergo repeat colonoscopy but would be amenable to upper endoscopy. The patient had upper endoscopy performed by Dr. Fransisco Florez at the [facility] endoscopy Center on April 20, 2016 for a complaint of heartburn/reflux. he was found to have bile reflux and otherwise an unremarkable upper endoscopy at that time. The patient has a history of significant coronary disease having undergone coronary bypass grafting ?4 along with PTCA after being judged to be poorly reconstructable with poor conduits available at his last attempt at reconstruction. he had a TIA in July 2018. His first AK was in 1992. He has a history of a hiatal hernia, insulin-dependent diabetes, he had a previous finding of a kidney stone and had an subtle finding of a small bladder cancer at that time. He states he has been followed with intermittent cystoscopies and there've been no residual abnormalities in his bladder. his previous abdominal surgeries as well as a cholecystectomy in 1997. He notes an allergy to ciprofloxacin. he has been holding his Plavix since Sunday. I performed upper endoscopy which was negative. The patient had a paracentesis which returned as bloody fluid but was not able to be conclusively positive for malignant cells. Additional cellblock samples will be obtained. In discussions with Dr. Waters and the fact that the patient's ascites and to returning, we have elected to perform diagnostic laparoscopy with visually directed omental biopsy and tunneled abdominal paracentesis/Pleurx catheter. Past Medical History Past Medical History (Chronic Problems): Chronic Problems Bilateral lower extremity edema (Chronic) History of bladder cancer (Chronic) Hyperlipidemia (Chronic) Diabetes (Chronic) Hypertension (Chronic) CAD (coronary artery disease) (Chronic) Allergies ciprofloxacin HCl [From Cipro] Adverse Reaction (Verified 07/05/19 19:24) Pain in joints Home Medications: Ambulatory Orders Medication Instructions Recorded Levothyroxine [Synthroid] 25 mcg PO DAILY 09/09/13 Metoprolol Tartrate [Lopressor 25 mg PO BID 09/09/13 (beta gary)] Rosuvastatin Calcium [Crestor] 20 mg PO QHS 09/09/13 Tamsulosin HCl [Flomax] 0.4 mg PO DAILY 09/09/13 ALPRAZolam [Xanax] 0.25 mg PO QHS PRN 04/12/16 Aspirin [Aspirin, Baby] 81 mg PO DAILY@0800 11/24/16 Clopidogrel Bisulfate [Plavix] 75 mg PO DAILY 11/24/16 Finasteride 5 mg PO QHS 11/24/16 Insulin Degludec [Tresiba 60 unit SQ DAILY 11/24/16 Flextouch U-100] Pantoprazole Sodium [Protonix] 20 mg PO DAILY 11/24/16 Glimepiride [Amaryl] 4 mg PO BID 07/03/19 Lisinopril [Zestril] 10 mg PO BID 07/03/19 Ondansetron [Zofran Odt] 4 mg PO Q8H PRN PRN #20 tab 07/03/19 Surgical History: - - CABG x4, PCI x 8-9, cholecystectomy, bladder cancer surgery, cystoscopy with lithotripsy. Psychiatric History: Anxiety Lives: Alone Smoking Status: Former smoker Tobacco Use: Non-smoker Alcohol: None Drugs: None - *Family History Paternal History Items: Diabetes Maternal History Items: Heart Disease Review of Systems Constitutional: Reports: Anorexia, Weakness, Fatigue HEENT: Denies: Head Aches, Sinus Congestion, Sinus Drainage Cardiovascular: Denies: Chest Pain, Palpitations Respiratory: Denies: Cough, Shortness of breath at rest, Sputum production Gastrointestinal: Reports: Abdominal Pain. Denies: Nausea, Vomiting Genitourinary: Denies: Dysuria Musculoskeletal: Denies: Joint Pain, Joint Tenderness Skin: Denies: Rash, Wounds Neurological: Denies: Numbness, Tingling, Focal weakness Psychiatric: Denies: Anxiety, Depression, Homicidal Ideations, Suicidal Ideations Hematologic/ Lymphatic: Denies: Easy Bruising, Easy Bleeding Patient Problems: Active and Suspected Problems Intractable abdominal pain (Acute) Right shoulder pain (Acute) Malignant ascites (Acute) - Physical Exam General: Alert, Oriented x3, Cooperative Lungs: Clear to auscultation, Normal air movement Cardiovascular: Regular rate, Regular Rhythm Abdomen: Bowel Sounds Present, Soft, Distended, Tender - mild diffusely tender without peritoneal signs Vital Signs Temp Pulse Resp BP Pulse Ox 97.6 F L 82 18 118/55 L 92 07/06/19 06:02 07/06/19 08:56 07/06/19 06:02 07/06/19 06:02 07/06/19 07:31 Oxygen Delivery Method Room Air Weight: 86.7 kg Body Mass Index (BMI) 26.4 Finger Stick Blood Glucose 106 Intake and Output for Last 24 Hours 07/04/19 07/05/19 07/06/19 23:59 23:59 23:59 Intake Total 1000 / 1000 250 / 250 Balance 1000 / 1000 250 / 250 Laboratory Tests Past 24 Hrs 07/05/19 07/05/19 07/05/19 19:40 19:40 19:40 WBC 7.3 RBC 4.15 L Hgb 11.3 L Hct 36.4 L MCV 87.7 MCH 27.2 MCHC 31.0 L RDW Std Deviation 50.9 H RDW Coeff of Ashley 15.9 H Plt Count 324 MPV 9.4 Immature Gran % (Auto) 0.400 Neut % (Auto) 68.3 Lymph % (Auto) 17.1 L Fleming % (Auto) 12.8 H Eos % (Auto) 0.7 Baso % (Auto) 0.7 Absolute Neuts (auto) 5.0 Absolute Lymphs (auto) 1.24 Nucleated RBC % 0 PT INR APTT Sodium 138 Potassium 5.1 Chloride 107 Carbon Dioxide 29.0 Anion Gap 2 L BUN 19 H Creatinine 1.26 Estim Creat Clear Calc 54.78 Est GFR (MDRD) Af Amer 72 Est GFR (MDRD) Non-Af 59 L BUN/Creatinine Ratio 15.1 Glucose 92 Calcium 9.0 Phosphorus Magnesium Total Bilirubin 0.50 Direct Bilirubin 0.13 AST 25 ALT 18 Alkaline Phosphatase 113 Troponin I Total Protein 7.1 Albumin 2.9 L Globulin 4.2 Albumin/Globulin Ratio Lipase 48 L Urine Color Urine Clarity Urine pH Ur Specific Clayton Urine Protein Urine Glucose (UA) Urine Ketones Urine Occult Blood Urine Nitrite Urine Bilirubin Urine Urobilinogen Ur Leukocyte Esterase Urine RBC Urine WBC Ur Squamous Epith Cells Ur Transition Epith Cell Urine Bacteria Urine Mucus 07/05/19 07/06/19 07/06/19 22:55 01:44 01:44 WBC RBC Hgb Hct MCV MCH MCHC RDW Std Deviation RDW Coeff of Ashley Plt Count MPV Immature Gran % (Auto) Neut % (Auto) Lymph % (Auto) Fleming % (Auto) Eos % (Auto) Baso % (Auto) Absolute Neuts (auto) Absolute Lymphs (auto) Nucleated RBC % PT INR APTT Sodium Potassium Chloride Carbon Dioxide Anion Gap BUN Creatinine Estim Creat Clear Calc Est GFR (MDRD) Af Amer Est GFR (MDRD) Non-Af BUN/Creatinine Ratio Glucose 64 L Calcium Phosphorus 2.6 Magnesium 2.1 Total Bilirubin Direct Bilirubin AST ALT Alkaline Phosphatase Troponin I < 0.015 Total Protein Albumin Globulin Albumin/Globulin Ratio Lipase Urine Color Yellow Urine Clarity Clear Urine pH 6.0 Ur Specific Clayton 1.015 Urine Protein Negative Urine Glucose (UA) Normal Urine Ketones 5 H Urine Occult Blood Negative Urine Nitrite Negative Urine Bilirubin Negative Urine Urobilinogen Normal Ur Leukocyte Esterase Negative Urine RBC 0 SEEN Urine WBC 0-5 SEEN Ur Squamous Epith Cells 0 SEEN Ur Transition Epith Cell 0-5 SEEN Urine Bacteria 0 SEEN Urine Mucus RARE 07/06/19 07/06/19 07/06/19 04:29 04:29 04:29 WBC 5.4 RBC 3.39 L Hgb 9.3 L Hct 30.0 L MCV 88.5 MCH 27.4 MCHC 31.0 L RDW Std Deviation 52.1 H RDW Coeff of Ashley 16.0 H Plt Count 244 MPV 8.9 Immature Gran % (Auto) 0.400 Neut % (Auto) 62.3 Lymph % (Auto) 22.6 Fleming % (Auto) 12.9 H Eos % (Auto) 0.9 Baso % (Auto) 0.9 Absolute Neuts (auto) 3.4 Absolute Lymphs (auto) 1.22 Nucleated RBC % 0 PT 15.0 H INR 1.2 APTT 30.8 Sodium 142 Potassium 4.7 Chloride 110 H Carbon Dioxide 27.0 Anion Gap 5 BUN 18 Creatinine 1.17 Estim Creat Clear Calc 59.00 Est GFR (MDRD) Af Amer 78 Est GFR (MDRD) Non-Af 65 BUN/Creatinine Ratio 15.4 Glucose 132 H Calcium 7.9 L Phosphorus Magnesium Total Bilirubin 0.50 Direct Bilirubin AST 24 ALT 15 L Alkaline Phosphatase 93 Troponin I Total Protein 5.6 L Albumin 2.2 L Globulin 3.4 Albumin/Globulin Ratio 0.6 L Lipase Urine Color Urine Clarity Urine pH Ur Specific Clayton Urine Protein Urine Glucose (UA) Urine Ketones Urine Occult Blood Urine Nitrite Urine Bilirubin Urine Urobilinogen Ur Leukocyte Esterase Urine RBC Urine WBC Ur Squamous Epith Cells Ur Transition Epith Cell Urine Bacteria Urine Mucus 07/06/19 07/06/19 04:29 07:30 WBC RBC Hgb Hct MCV MCH MCHC RDW Std Deviation RDW Coeff of Ashley Plt Count MPV Immature Gran % (Auto) Neut % (Auto) Lymph % (Auto) Fleming % (Auto) Eos % (Auto) Baso % (Auto) Absolute Neuts (auto) Absolute Lymphs (auto) Nucleated RBC % PT INR APTT Sodium Potassium Chloride Carbon Dioxide Anion Gap BUN Creatinine Estim Creat Clear Calc Est GFR (MDRD) Af Amer Est GFR (MDRD) Non-Af BUN/Creatinine Ratio Glucose Calcium Phosphorus Magnesium Total Bilirubin Direct Bilirubin AST ALT Alkaline Phosphatase Troponin I < 0.015 < 0.015 Total Protein Albumin Globulin Albumin/Globulin Ratio Lipase Urine Color Urine Clarity Urine pH Ur Specific Clayton Urine Protein Urine Glucose (UA) Urine Ketones Urine Occult Blood Urine Nitrite Urine Bilirubin Urine Urobilinogen Ur Leukocyte Esterase Urine RBC Urine WBC Ur Squamous Epith Cells Ur Transition Epith Cell Urine Bacteria Urine Mucus POC Glucose 07/06/19 07/06/19 07/06/19 06:08 01:56 01:27 POC Glucose 98 61 L 42 L* Assessment/Plan All Active Problems Ulcer of right lower extremity (Acute) Intractable abdominal pain (Acute) Right shoulder pain (Acute) Malignant ascites (Acute) I perform diagnostic laparoscopy with visually directed omental biopsy and tunneled abdominal paracentesis/Pleurx catheter. frozen section returned as poorly differentiated carcinoma consistent with signet ring carcinoma. The patient has still had significant fluid which is now being gravity drained. After discussions with the patient and his daughter, they have elected to proceed with inpatient hospice. - Physical Exam General: Alert, Oriented x3, Cooperative Lungs: Clear to auscultation, Normal air movement Cardiovascular: Regular rate, No murmurs Abdomen: Bowel Sounds Present, Soft, Distended, - - and bloody serous fluid draining from catheter. Vital Signs Temp Pulse Resp BP Pulse Ox 97.6 F L 70 18 103/56 L 94 07/15/19 13:58 07/15/19 13:58 07/15/19 13:58 07/15/19 13:58 07/15/19 13:58 Oxygen Flow Rate (L/min) 2 Oxygen Delivery Method Room Air Weight: 83.1 kg Body Mass Index (BMI) 25.5 Finger Stick Blood Glucose 106 Intake and Output for Last 24 Hours 07/13/19 07/14/19 07/15/19 23:59 23:59 23:59 Intake Total 3073.33 / 3323.33 2471.67 / 2471.67 Output Total 4425 / 4425 Balance 3073.33 / 2823.33 -3.33 / -1952.33 POC Glucose 07/15/19 07/15/19 07/14/19 11:32 06:58 21:34 POC Glucose 235 H 205 H 216 H Discharge Diet: No Restrictions Discharge Activity: Return to Normal Activity, May Not Shower - while drain is fixed but may sponge bath Call your doctor if your incision/area has: Continuous Slow Oozing, Sudden Increased Bleeding, Increased Pain/ Swelling, Increased Redness Call your doctor if you observe: Fever of 101 or Higher, Coldness, Increased Pain Home Medications: Medications to take at Discharge Levothyroxine [Synthroid] 25 mcg PO DAILY 09/09/13 Metoprolol Tartrate [Lopressor (beta gary)] 25 mg PO BID 09/09/13 Tamsulosin HCl [Flomax] 0.4 mg PO DAILY 09/09/13 ALPRAZolam [Xanax] 0.25 mg PO QHS PRN 04/12/16 Finasteride 5 mg PO QHS 11/24/16 Insulin Degludec [Tresiba Flextouch U-100] 60 unit SQ DAILY 11/24/16 Glimepiride [Amaryl] 4 mg PO BID 07/03/19 Lisinopril [Zestril] 10 mg PO BID 07/03/19 Ondansetron [Zofran Odt] 4 mg PO Q8H PRN PRN #20 tab 07/03/19 Aspirin [Aspir 81] 81 mg PO DAILY 07/11/19 Clopidogrel Bisulfate [Plavix] 75 mg PO DAILY 07/11/19 Pantoprazole Sodium [Protonix] 80 mg PO DAILY 07/11/19 Oxycodone [Oxyir] 5 mg PO Q4H PRN PRN tablet 07/15/19 Other Amb Orders: Hemoglobin A1c Time Frame: 07/11/19, Facility: [facility], Location: Laboratory Primary Care Physician: Georgi Marquez Chi, MD [Primary Care Provider] - Medical Necessity - Tobacco Use Smoking Status: Former smoker Tobacco Use: Non-smoker Meaningful Use Info Meaningful Use Diagnoses (Choose all that apply): None applicable
--- NOTE | 2019-07-15 17:30 | NURSING ---
call placed to [facility], report given to nurse whom will be taking over care for this patient
== END 2019-07-15 17:50 | disposition hospice, inpatient (51) ==
LOC: SDC 14:01 → MS3 14:02
PROVIDERS: Admitting Provider Surgery; Family Provider Family Medicine Geriatric Medicine; PCP Family Medicine Geriatric Medicine; Referring Provider Surgery; Visit Provider Surgery
PROC: (CPT 49320; principal; 2019-07-14 07:00)
PROC: (CPT 32550; 2019-07-14 07:00)
DX: C80.0 Disseminated malignant neoplasm, unspecified (principal); R18.0 Malignant ascites; E78.5 Hyperlipidemia, unspecified; I25.10 Atherosclerotic heart disease of native coronary artery without angina pectoris; E11.9 Type 2 diabetes mellitus without complications; Z85.51 Personal history of malignant neoplasm of bladder; I10 Essential (primary) hypertension; Z95.1 Presence of aortocoronary bypass graft; Z79.899 Other long term (current) drug therapy; Z79.02 Long term (current) use of antithrombotics/antiplatelets; Z79.82 Long term (current) use of aspirin; Z79.4 Long term (current) use of insulin; Z87.891 Personal history of nicotine dependence; F41.9 Anxiety disorder, unspecified
CPT/HCPCS: 00840; 49321; 49418; 82962; 88108; 88305; 88307; 88313; 88331; 88341; 88342; 96361; 96365; 96366; 96375; 96376; 97802; 99218; 99406; J7120; A4216; C1729; G0378; G0379; J2405